=== PATIENT | female | born 1940 | race Caucasian/White ===

== ENCOUNTER → 2016-10-16 | Outpatient (CLI) | payer BC ==
[~2016-10-16] MED LIST: ADV250INH INH; ALBU17IN INH; ALLO100T PO; ALPR0.25 PO; AMIT50TA PO; CARI350T20 PO; CELE-19 PO; COLA100C3 PO; FURO1TAB15 PO; KLOR20PO12 PO; LISI-538 PO; MULT1TAB10 PO; NEXI40CA PO; PARO20TA3 PO; PRAV40TA2 PO; TRAM50TA2 PO
--- NOTE | 2016-10-16 11:44 | REP ---
RIGHT WRIST: Four views of the right wrist are performed. There is no acute fracture or dislocation. There is some degree of sclerosis of the lunate bone suggesting osteonecrosis. There is narrowing between the scaphoid and the trapezium as well as between the trapezium and base of first metacarpal with mild marginal spurring. 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 Mild degenerative changes lateral carpometacarpal region. Signed by Ethan Lombardo MD 10/16/2016 04:51 P
== END ==
LOC: M ADAMS 10:25
PROVIDERS: ATTEND Physician Assistant
DX: M25.531 Pain in right wrist (principal)

== ENCOUNTER → 2016-12-16 | Outpatient (REF) | payer BC ==
[2016-12-16 13:20] LABS: BASO % 0.5 % (0.0-1.0); EOS # 0.2 K/mm3 (0.0-0.50); EOS % 3.9 % (0.0-3.0); LARGE UNSTAINED CELL # 0.1 K/mm3 (0.0-0.4); LARGE UNSTAINED CELL % 1.3 % (0.0-4.0); LYMPH # 0.8 K/mm3 (1.5-4.5); LYMPH % 15.2 % (24.0-44.0); MEAN CORPUSCULAR HEMOGLOBIN 31.4 pg (27.0-33.0); MEAN CORPUSCULAR HGB CONC 32.8 g/dl (32.0-36.5); MEAN CORPUSCULAR VOLUME 95.7 fl (80.0-96.0); MONO # 0.3 K/mm3 (0.0-0.8); MONO % 6.6 % (0.0-5.0); NEUTROPHILS # 3.5 K/mm3 (1.8-7.7); NEUTROPHILS % 72.5 % (36.0-66.0); PLATELET COUNT, AUTOMATED 200 k/mm3 (150-450); RED CELL DISTRIBUTION WIDTH 14.1 % (11.5-14.5); WHITE BLOOD COUNT 4.8 K/mm3 (4.0-10.0)
[2016-12-16 13:53] LABS: ALBUMIN 3.7 GM/DL (3.2-5.2); ALBUMIN/GLOBULIN RATIO 1.12 (1.00-1.93); BILIRUBIN,TOTAL 0.4 MG/DL (0.2-1.0); CALCIUM LEVEL 9.5 MG/DL (8.8-10.2); CREATININE FOR GFR 1.11 MG/DL (0.55-1.02); GLOMERULAR FILTRATION RATE 50.6 (>39); POTASSIUM SERUM 4.9 MEQ/L (3.5-5.1)
== END ==
LOC: M LAB REF 12:30
PROVIDERS: ATTEND Nurse Practitioner Family
DX: K21.9 Gastro-esophageal reflux disease without esophagitis (principal); E55.9 Vitamin D deficiency, unspecified; E78.5 Hyperlipidemia, unspecified; I10 Essential (primary) hypertension

== ENCOUNTER → 2017-02-02 | Outpatient (REF) | payer BC ==
[~2017-02-02] MED LIST changes: +CARI350T PO; -CARI350T20 PO; -CELE-19 PO; +CELE1CAP4 PO; -COLA100C3 PO; +COLA100C5 PO; -FURO1TAB15 PO; +FURO80TA2 PO
[2017-02-02 20:32] LABS: CALCIUM LEVEL 9.4 MG/DL (8.8-10.2); CREATININE FOR GFR 1.17 MG/DL (0.55-1.02); GLOMERULAR FILTRATION RATE 47.6 (>39); POTASSIUM SERUM 4.8 MEQ/L (3.5-5.1)
== END ==
LOC: M LABDRWAD 20:15 → M LAB REF 20:15
PROVIDERS: ATTEND Nurse Practitioner Family
DX: I10 Essential (primary) hypertension (principal)

== ENCOUNTER → 2017-04-01 | Outpatient (REF) | payer BC ==
[2017-04-01 20:45] LABS: CALCIUM LEVEL 9.3 MG/DL (8.8-10.2); CREATININE FOR GFR 1.14 MG/DL (0.55-1.02); GLOMERULAR FILTRATION RATE 49.1 (>39); POTASSIUM SERUM 4.5 MEQ/L (3.5-5.1)
== END ==
LOC: M LABDRWAD 20:08
PROVIDERS: ATTEND Physician Assistant
DX: G56.01 Carpal tunnel syndrome, right upper limb (principal)

== ENCOUNTER → 2017-06-12 | Outpatient (REF) | payer BC ==
[2017-06-12 13:42] LABS: CALCIUM LEVEL 9.3 MG/DL (8.8-10.2); GLOMERULAR FILTRATION RATE 57.1 (>39); POTASSIUM SERUM 3.9 MEQ/L (3.5-5.1)
== END ==
LOC: M LABDRAW1 08:06
PROVIDERS: ATTEND Physician Assistant Surgical
DX: G56.02 Carpal tunnel syndrome, left upper limb (principal); Z01.810 Encounter for preprocedural cardiovascular examination

== ENCOUNTER → 2017-06-12 | Outpatient (REF) | payer BC ==
[2017-06-12 13:06] LABS: BASO % 0.5 % (0.0-1.0); EOS # 0.1 10^3/uL (0.0-0.50); EOS % 3.3 % (0.0-3.0); IMMATURE GRANULOCYTE % 0.3 % (0-0); LYMPH # 0.8 10^3/uL (1.5-4.5); LYMPH % 20.5 % (24.0-44.0); MEAN CORPUSCULAR HGB CONC 32.1 g/dl (32.0-36.5); MEAN CORPUSCULAR VOLUME 96.6 fl (80.0-96.0); MONO # 0.4 10^3/uL (0.0-0.8); MONO % 9.2 % (0.0-5.0); NEUTROPHILS # 2.6 10^3/uL (1.8-7.7); NEUTROPHILS % 66.2 % (36.0-66.0); PLATELET COUNT, AUTOMATED 223 10^3/uL (150-450); RED CELL DISTRIBUTION WIDTH 14.6 % (11.5-14.5); WHITE BLOOD COUNT 3.9 10^3/uL (4.0-10.0)
[2017-06-12 13:44] LABS: ALBUMIN 3.7 GM/DL (3.2-5.2); ALBUMIN/GLOBULIN RATIO 1.09 (1.00-1.93); BILIRUBIN,TOTAL 0.4 MG/DL (0.2-1.0); CREATININE FOR GFR 0.98 MG/DL (0.55-1.02); GLOMERULAR FILTRATION RATE 58.4 (>39); POTASSIUM SERUM 3.9 MEQ/L (3.5-5.1); TOTAL PROTEIN 7.1 GM/DL (6.4-8.2)
== END ==
LOC: M LABDRAW1 08:05
PROVIDERS: ATTEND Nurse Practitioner Family
DX: K21.9 Gastro-esophageal reflux disease without esophagitis (principal); E78.4 Other hyperlipidemia; I10 Essential (primary) hypertension

== ENCOUNTER → 2017-07-28 | Outpatient (CLI) | payer BC | LOC: M PAIN 11:15 | DX: M53.3 Sacrococcygeal disorders, not elsewhere classified (principal); M48.061 Spinal stenosis, lumbar region without neurogenic claudication; Z79.891 Long term (current) use of opiate analgesic; Z79.899 Other long term (current) drug therapy; Z88.8 Allergy status to other drugs, medicaments and biological substances | CPT/HCPCS: G0463 ==

== ENCOUNTER → 2017-08-05 | Outpatient (REF) | payer BC | LOC: M LAB REF 10:05 | DX: R53.83 Other fatigue (principal) ==

== ENCOUNTER → 2017-08-11 | Outpatient (CLI) | payer BC ==
[~2017-08-11] MED LIST changes: -ADV250INH INH; -ALBU17IN INH; -ALLO100T PO; -ALPR0.25 PO; -AMIT50TA PO; +BUPIVACAINE HCL 0.25% 30 ML VIAL As Ordered; -CARI350T PO; -CELE1CAP4 PO; -COLA100C5 PO; -FURO80TA2 PO; +ISOVUE-M 300 61% 15ML VIAL (Q9967) As Ordered; -KLOR20PO12 PO; +LIDOCAINE 1% SDV INJ 30 ML VIAL As Ordered; -LISI-538 PO; -MULT1TAB10 PO; -NEXI40CA PO; -PARO20TA3 PO; -PRAV40TA2 PO; -TRAM50TA2 PO; +TRIAMCINOLONE ACETONIDE SUSP 40 MG/ML VIAL (J3301) As Ordered; +diazePAM 5 MG TAB As Ordered
== END ==
LOC: M PAIN 08:45
DX: G89.29 Other chronic pain (principal); M46.1 Sacroiliitis, not elsewhere classified; Z88.5 Allergy status to narcotic agent; Z79.899 Other long term (current) drug therapy
CPT/HCPCS: J3301

== ENCOUNTER → 2017-09-01 | Outpatient (CLI) | payer BC | LOC: M PAIN 08:30 | DX: G89.29 Other chronic pain (principal); M53.3 Sacrococcygeal disorders, not elsewhere classified; M48.061 Spinal stenosis, lumbar region without neurogenic claudication; Z88.5 Allergy status to narcotic agent; Z79.891 Long term (current) use of opiate analgesic; Z79.899 Other long term (current) drug therapy | CPT/HCPCS: G0463 ==

== ENCOUNTER → 2017-09-10 | Outpatient (CLI) | payer BC | END | disposition home or self-care (01) | LOC: M PAIN 14:15 | DX: G89.29 Other chronic pain (principal); M53.3 Sacrococcygeal disorders, not elsewhere classified; Z79.899 Other long term (current) drug therapy; Z79.51 Long term (current) use of inhaled steroids; Z88.2 Allergy status to sulfonamides; Z88.5 Allergy status to narcotic agent | CPT/HCPCS: J3301 ==

== ENCOUNTER → 2017-10-12 | Outpatient (CLI) | payer BC ==
[~2017-10-12] MED LIST changes: +oxyCODONE 5MG TAB As Ordered
== END ==
LOC: M PAIN 08:30
DX: G89.29 Other chronic pain (principal); M47.816 Spondylosis without myelopathy or radiculopathy, lumbar region; M47.817 Spondylosis without myelopathy or radiculopathy, lumbosacral region; I10 Essential (primary) hypertension; E78.00 Pure hypercholesterolemia, unspecified; Z79.899 Other long term (current) drug therapy; Z88.5 Allergy status to narcotic agent; Z87.39 Personal history of other diseases of the musculoskeletal system and connective tissue
CPT/HCPCS: J3301

== ENCOUNTER → 2017-11-03 | Outpatient (CLI) | payer BC | LOC: M PAIN 15:00 | DX: M53.3 Sacrococcygeal disorders, not elsewhere classified (principal); M43.16 Spondylolisthesis, lumbar region; M48.061 Spinal stenosis, lumbar region without neurogenic claudication; G89.29 Other chronic pain; D86.9 Sarcoidosis, unspecified; I10 Essential (primary) hypertension; E78.00 Pure hypercholesterolemia, unspecified; Z79.899 Other long term (current) drug therapy; Z88.5 Allergy status to narcotic agent; Z87.39 Personal history of other diseases of the musculoskeletal system and connective tissue; Z96.652 Presence of left artificial knee joint | CPT/HCPCS: G0463 ==

== ENCOUNTER → 2017-11-12 | Outpatient (CLI) | payer BC ==
[~2017-11-12] MED LIST changes: -TRIAMCINOLONE ACETONIDE SUSP 40 MG/ML VIAL (J3301) As Ordered; -diazePAM 5 MG TAB As Ordered; -oxyCODONE 5MG TAB As Ordered
== END ==
LOC: M PAIN 10:45
DX: M47.816 Spondylosis without myelopathy or radiculopathy, lumbar region (principal); M47.817 Spondylosis without myelopathy or radiculopathy, lumbosacral region; I10 Essential (primary) hypertension; M10.9 Gout, unspecified; E78.00 Pure hypercholesterolemia, unspecified; Z96.652 Presence of left artificial knee joint; Z90.49 Acquired absence of other specified parts of digestive tract; Z79.891 Long term (current) use of opiate analgesic; Z79.899 Other long term (current) drug therapy; Z88.6 Allergy status to analgesic agent
CPT/HCPCS: Q9967

== ENCOUNTER → 2017-11-17 | Outpatient (CLI) | payer BC | LOC: M PAIN 15:45 | DX: M47.816 Spondylosis without myelopathy or radiculopathy, lumbar region (principal); M47.817 Spondylosis without myelopathy or radiculopathy, lumbosacral region; G89.29 Other chronic pain; I10 Essential (primary) hypertension; E78.00 Pure hypercholesterolemia, unspecified; D86.9 Sarcoidosis, unspecified; Z79.899 Other long term (current) drug therapy; Z88.5 Allergy status to narcotic agent; Z87.39 Personal history of other diseases of the musculoskeletal system and connective tissue; Z96.652 Presence of left artificial knee joint | CPT/HCPCS: G0463 ==

== ENCOUNTER → 2017-12-01 | Outpatient (CLI) | payer BC | LOC: M PAIN 10:30 | DX: G89.29 Other chronic pain (principal); M47.816 Spondylosis without myelopathy or radiculopathy, lumbar region; M47.817 Spondylosis without myelopathy or radiculopathy, lumbosacral region; I10 Essential (primary) hypertension; E78.00 Pure hypercholesterolemia, unspecified; D86.9 Sarcoidosis, unspecified; Z79.891 Long term (current) use of opiate analgesic; Z79.899 Other long term (current) drug therapy; Z88.5 Allergy status to narcotic agent; Z87.39 Personal history of other diseases of the musculoskeletal system and connective tissue; Z96.652 Presence of left artificial knee joint | CPT/HCPCS: Q9967 ==

== ENCOUNTER → 2017-12-03 | Outpatient (CLI) | payer BC | LOC: M PAIN 09:15 | DX: M46.96 Unspecified inflammatory spondylopathy, lumbar region (principal); M46.97 Unspecified inflammatory spondylopathy, lumbosacral region; G89.29 Other chronic pain; I10 Essential (primary) hypertension; E78.00 Pure hypercholesterolemia, unspecified; Z79.899 Other long term (current) drug therapy; Z88.5 Allergy status to narcotic agent; Z87.39 Personal history of other diseases of the musculoskeletal system and connective tissue; Z96.652 Presence of left artificial knee joint | CPT/HCPCS: G0463 ==

== ENCOUNTER → 2017-12-15 | Outpatient (REF) | payer BC ==
[2017-12-15 13:42] LABS: BASO % 0.4 % (0.0-1.0); EOS # 0.1 10^3/uL (0.0-0.50); EOS % 2.5 % (0.0-3.0); HEMOGLOBIN 11.8 g/dl (12.0-15.5); IMMATURE GRANULOCYTE % 0.7 % (0-3.0); LYMPH % 18.4 % (24.0-44.0); MEAN CORPUSCULAR HEMOGLOBIN 31.9 pg (27.0-33.0); MEAN CORPUSCULAR HGB CONC 31.9 g/dl (32.0-36.5); MONO # 0.4 10^3/uL (0.0-0.8); MONO % 7.9 % (0.0-5.0); NEUTROPHILS # 3.9 10^3/uL (1.8-7.7); NEUTROPHILS % 70.1 % (36.0-66.0); PLATELET COUNT, AUTOMATED 195 10^3/uL (150-450); RED CELL DISTRIBUTION WIDTH 14.1 % (11.5-14.5); WHITE BLOOD COUNT 5.5 10^3/uL (4.0-10.0)
[2017-12-15 13:56] LABS: TOTAL 25(OH) VITAMIN D 20.4 NG/ML (30.0-100.0)
[2017-12-15 14:05] LABS: ALBUMIN 3.9 GM/DL (3.2-5.2); ALBUMIN/GLOBULIN RATIO 1.22 (1.00-1.93); ALKALINE PHOSPHATASE 99 U/L (45-117); ALT/SGPT 19 U/L (12-78); ANION GAP 5 MEQ/L (8-16); AST/SGOT 11 U/L (7-37); BILIRUBIN,TOTAL 0.3 MG/DL (0.2-1.0); BLOOD UREA NITROGEN 38 MG/DL (7-18); CARBON DIOXIDE LEVEL 32 MEQ/L (21-32); CHLORIDE LEVEL 104 MEQ/L (98-107); CHOLESTEROL LEVEL 210 MG/DL (<200); CREATININE FOR GFR 1.33 MG/DL (0.55-1.30); GLUCOSE, FASTING 91 MG/DL (70-100); HDL CHOLESTEROL 70 MG/DL (>40); LDL CHOLESTEROL 112.4 MG/DL (<100); NON-HDL-C 140 MG/DL; POTASSIUM SERUM 4.8 MEQ/L (3.5-5.1); SODIUM LEVEL 141 MEQ/L (136-145); TOTAL PROTEIN 7.1 GM/DL (6.4-8.2); TRIGLYCERIDES LEVEL 138 MG/DL (<150)
== END ==
LOC: M SFHCADAM 08:54
DX: K21.9 Gastro-esophageal reflux disease without esophagitis (principal); E55.9 Vitamin D deficiency, unspecified; E78.4 Other hyperlipidemia; I10 Essential (primary) hypertension
CPT/HCPCS: 80053

== ENCOUNTER → 2017-12-15 | Outpatient (CLI) | payer BC ==
[~2017-12-15] MED LIST changes: -ISOVUE-M 300 61% 15ML VIAL (Q9967) As Ordered; +TRIAMCINOLONE ACETONIDE SUSP 40 MG/ML VIAL (J3301) As Ordered
== END ==
LOC: M PAIN 10:00
DX: G89.29 Other chronic pain (principal); M47.816 Spondylosis without myelopathy or radiculopathy, lumbar region; M47.817 Spondylosis without myelopathy or radiculopathy, lumbosacral region; I10 Essential (primary) hypertension; M10.9 Gout, unspecified; E78.00 Pure hypercholesterolemia, unspecified; D86.9 Sarcoidosis, unspecified; Z79.891 Long term (current) use of opiate analgesic; Z79.899 Other long term (current) drug therapy; Z88.5 Allergy status to narcotic agent
CPT/HCPCS: J3301

== ENCOUNTER → 2017-12-31 | Outpatient (CLI) | payer BC | LOC: M PAIN 13:00 | DX: M79.1 Myalgia (principal); M53.3 Sacrococcygeal disorders, not elsewhere classified; M48.061 Spinal stenosis, lumbar region without neurogenic claudication; D86.9 Sarcoidosis, unspecified; I10 Essential (primary) hypertension; E78.00 Pure hypercholesterolemia, unspecified; Z79.891 Long term (current) use of opiate analgesic; Z79.899 Other long term (current) drug therapy; Z88.5 Allergy status to narcotic agent; Z87.39 Personal history of other diseases of the musculoskeletal system and connective tissue | CPT/HCPCS: G0463 ==

== ENCOUNTER → 2018-01-01 | Outpatient (CLI) | payer BC ==
[~2018-01-01] MED LIST changes: +BUPIVACAINE HCL 0.25% 10 ML VIAL As Ordered; -LIDOCAINE 1% SDV INJ 30 ML VIAL As Ordered; +diazePAM 5 MG TAB As Ordered
== END ==
LOC: M PAIN 08:30
DX: G89.29 Other chronic pain (principal); M79.1 Myalgia; M54.5 Low back pain; D86.9 Sarcoidosis, unspecified; I10 Essential (primary) hypertension; E78.00 Pure hypercholesterolemia, unspecified; Z79.899 Other long term (current) drug therapy; Z88.5 Allergy status to narcotic agent; Z87.39 Personal history of other diseases of the musculoskeletal system and connective tissue; Z96.652 Presence of left artificial knee joint
CPT/HCPCS: J3301

== ENCOUNTER → 2018-01-27 | Outpatient (CLI) | payer BC | LOC: M PAIN 08:45 | DX: G89.29 Other chronic pain (principal); M79.1 Myalgia; M54.5 Low back pain; M53.3 Sacrococcygeal disorders, not elsewhere classified; M48.061 Spinal stenosis, lumbar region without neurogenic claudication; I10 Essential (primary) hypertension; E78.00 Pure hypercholesterolemia, unspecified; Z88.5 Allergy status to narcotic agent; Z79.01 Long term (current) use of anticoagulants; Z79.899 Other long term (current) drug therapy; Z87.39 Personal history of other diseases of the musculoskeletal system and connective tissue; Z96.652 Presence of left artificial knee joint | CPT/HCPCS: G0463 ==

== ENCOUNTER → 2018-02-02 | Outpatient (CLI) | payer BC | LOC: M PAIN 08:30 | DX: G89.29 Other chronic pain (principal); M79.1 Myalgia; M54.5 Low back pain; I10 Essential (primary) hypertension; E78.00 Pure hypercholesterolemia, unspecified; D86.9 Sarcoidosis, unspecified; Z79.01 Long term (current) use of anticoagulants; Z79.899 Other long term (current) drug therapy; Z88.5 Allergy status to narcotic agent; Z96.652 Presence of left artificial knee joint; Z87.39 Personal history of other diseases of the musculoskeletal system and connective tissue | CPT/HCPCS: J3301 ==

== ENCOUNTER 2018-02-08 14:33 | Emergency (ER) | payer BC ==
[2018-02-08 16:15] LABS: BASO % 0.2 % (0.0-1.0); EOS # 0.1 10^3/uL (0.0-0.50); EOS % 1.3 % (0.0-3.0); HEMATOCRIT 38.5 % (36.0-47.0); HEMOGLOBIN 12.5 g/dl (12.0-15.5); IMMATURE GRANULOCYTE % 0.6 % (0-3.0); LYMPH # 0.8 10^3/uL (1.5-4.5); LYMPH % 12.6 % (24.0-44.0); MEAN CORPUSCULAR HEMOGLOBIN 31.7 pg (27.0-33.0); MEAN CORPUSCULAR HGB CONC 32.5 g/dl (32.0-36.5); MEAN CORPUSCULAR VOLUME 97.7 fl (80.0-96.0); MONO # 0.4 10^3/uL (0.0-0.8); MONO % 6.3 % (0.0-5.0); NEUTROPHILS # 4.9 10^3/uL (1.8-7.7); PLATELET COUNT, AUTOMATED 198 10^3/uL (150-450); RED BLOOD COUNT 3.94 10^6/uL (4.00-5.40); RED CELL DISTRIBUTION WIDTH 13.7 % (11.5-14.5); WHITE BLOOD COUNT 6.2 10^3/uL (4.0-10.0)
[2018-02-08 16:19] LABS: INR 0.95; PROTHROMBIN TIME 12.8 SECONDS (12.1-14.4)
[2018-02-08 16:20] LABS: PARTIAL THROMBOPLASTIN TIME 32.9 SECONDS (25.4-37.6)
[2018-02-08 16:32] LABS: ALBUMIN 3.6 GM/DL (3.2-5.2); ALBUMIN/GLOBULIN RATIO 1.09 (1.00-1.93); ALKALINE PHOSPHATASE 80 U/L (45-117); ALT/SGPT 26 U/L (12-78); ANION GAP 9 MEQ/L (8-16); AST/SGOT 13 U/L (7-37); BILIRUBIN,DIRECT < 0.1 MG/DL (0.0-0.2); BILIRUBIN,TOTAL 0.3 MG/DL (0.2-1.0); BLOOD UREA NITROGEN 34 MG/DL (7-18); CALCIUM LEVEL 8.6 MG/DL (8.8-10.2); CARBON DIOXIDE LEVEL 31 MEQ/L (21-32); CHLORIDE LEVEL 106 MEQ/L (98-107); CREATININE FOR GFR 1.33 MG/DL (0.55-1.30); GLUCOSE, FASTING 101 MG/DL (70-100); POTASSIUM SERUM 3.9 MEQ/L (3.5-5.1); SODIUM LEVEL 146 MEQ/L (136-145); TOTAL PROTEIN 6.9 GM/DL (6.4-8.2)
[2018-02-08 19:08] LABS: C REACTIVE PROTEIN QUANTITATIV < 0.30 MG/DL (0.00-0.30)
[2018-02-08] MEDS: GASTROGRAFIN SOLUTION 30ML PO ×2 (19:22→19:55)
[2018-02-08] MEDS ORDERED: ISOVUE-370 76% 100ML VIAL (Q9967) As Ordered (20:43)
[2018-02-08 22:00] LABS: ERYTHROCYTE SEDIMENTATION RATE 22 mm/hr (0-30)
[2018-02-08] MEDS: RIVAROXABAN 20 MG TAB (XARELTO) PO (23:03)
[2018-02-09 09:13] LABS: CARCINOEMBRYONIC ANTIGEN 3.4 NG/ML (<2.5)
[2018-02-09 09:41] LABS: CA 125 15.3 U/ML (<30.2)
[2018-02-09 11:08] LABS: DRVV SCREEN 42.9 SEC
[2018-02-15 14:12] LABS: PHOSPHOLIPIDS LEVEL 291 mg/dL (150-250)
[2018-02-15 14:12] LABS: ANTI THROMBIN 3 ANTIGEN IMMUNO 134 % (72-124); ANTI THROMBIN 3 FUNCT ACTIVITY 126 % (75-135); CARDIOLIPIN IGA ANTIBODY <9 APL U/mL (0-11); CARDIOLIPIN IGG ANTIBODY <9 GPL U/mL (0-14); CARDIOLIPIN IGM ANTIBODY 11 MPL U/mL (0-12); PROTEIN C FUNCTIONAL ACTIVITY 152 % (73-180); PROTEIN S FUNCTIONAL ACTIVITY 79 % (63-140)
== END 2018-02-08 23:15 | disposition home or self-care (01) ==
LOC: M ED 14:33
DX: M79.89 Other specified soft tissue disorders (principal); M79.605 Pain in left leg; I10 Essential (primary) hypertension; E78.5 Hyperlipidemia, unspecified; M10.9 Gout, unspecified; J98.4 Other disorders of lung; Z88.5 Allergy status to narcotic agent; Z79.899 Other long term (current) drug therapy; Z79.51 Long term (current) use of inhaled steroids
CPT/HCPCS: Q9963

== ENCOUNTER → 2018-03-11 | Outpatient (CLI) | payer BC | LOC: M PAIN 08:30 | DX: M79.1 Myalgia (principal); M53.3 Sacrococcygeal disorders, not elsewhere classified; M48.061 Spinal stenosis, lumbar region without neurogenic claudication; I10 Essential (primary) hypertension; E78.00 Pure hypercholesterolemia, unspecified; Z79.01 Long term (current) use of anticoagulants; Z79.899 Other long term (current) drug therapy; Z88.5 Allergy status to narcotic agent; Z96.652 Presence of left artificial knee joint; Z87.39 Personal history of other diseases of the musculoskeletal system and connective tissue; Z86.718 Personal history of other venous thrombosis and embolism | CPT/HCPCS: G0463 ==

== ENCOUNTER → 2018-03-26 | Outpatient (CLI) | payer BC | LOC: M RAD 06:33 | DX: M79.1 Myalgia (principal); R93.7 Abnormal findings on diagnostic imaging of other parts of musculoskeletal system | CPT/HCPCS: 72148 ==

== ENCOUNTER → 2018-03-29 | Outpatient (CLI) | payer BC ==
[~2018-03-29] MED LIST changes: -BUPIVACAINE HCL 0.25% 10 ML VIAL As Ordered; +ISOVUE-M 300 61% 15ML VIAL (Q9967) As Ordered; +LIDOCAINE 1% SDV INJ 30 ML VIAL As Ordered; +oxyCODONE 5MG TAB As Ordered
== END ==
LOC: M PAIN 08:30
DX: G89.29 Other chronic pain (principal); M46.1 Sacroiliitis, not elsewhere classified; M53.88 Other specified dorsopathies, sacral and sacrococcygeal region; I10 Essential (primary) hypertension; E78.00 Pure hypercholesterolemia, unspecified; M87.9 Osteonecrosis, unspecified; Z68.41 Body mass index [BMI] 40.0-44.9, adult; Z79.01 Long term (current) use of anticoagulants; Z79.899 Other long term (current) drug therapy; Z88.5 Allergy status to narcotic agent; Z96.652 Presence of left artificial knee joint; Z87.39 Personal history of other diseases of the musculoskeletal system and connective tissue; Z86.79 Personal history of other diseases of the circulatory system
CPT/HCPCS: J3301

== ENCOUNTER → 2018-04-14 | Outpatient (CLI) | payer BC | LOC: M PAIN 08:30 | DX: M79.10 Myalgia, unspecified site (principal); M53.3 Sacrococcygeal disorders, not elsewhere classified; M48.061 Spinal stenosis, lumbar region without neurogenic claudication; D86.9 Sarcoidosis, unspecified; I10 Essential (primary) hypertension; E78.00 Pure hypercholesterolemia, unspecified; E66.01 Morbid (severe) obesity due to excess calories; Z68.41 Body mass index [BMI] 40.0-44.9, adult; Z79.01 Long term (current) use of anticoagulants; Z79.899 Other long term (current) drug therapy; Z88.5 Allergy status to narcotic agent; Z96.652 Presence of left artificial knee joint; Z87.39 Personal history of other diseases of the musculoskeletal system and connective tissue; Z86.718 Personal history of other venous thrombosis and embolism | CPT/HCPCS: G0463 ==

== ENCOUNTER → 2018-05-04 | Outpatient (CLI) | payer BC | LOC: M PAIN 08:45 | DX: G89.29 Other chronic pain (principal); M46.1 Sacroiliitis, not elsewhere classified; M53.88 Other specified dorsopathies, sacral and sacrococcygeal region; I10 Essential (primary) hypertension; E78.00 Pure hypercholesterolemia, unspecified; Z79.01 Long term (current) use of anticoagulants; Z79.899 Other long term (current) drug therapy; Z88.5 Allergy status to narcotic agent; Z86.79 Personal history of other diseases of the circulatory system; Z87.39 Personal history of other diseases of the musculoskeletal system and connective tissue | CPT/HCPCS: J3301 ==

== ENCOUNTER → 2018-05-05 | Outpatient (REF) | payer BC ==
[2018-05-05 20:06] LABS: BASO % 0.2 % (0.0-1.0); EOS % 0.2 % (0.0-3.0); HEMATOCRIT 40.6 % (36.0-47.0); HEMOGLOBIN 12.7 g/dl (12.0-15.5); IMMATURE GRANULOCYTE % 0.5 % (0-3.0); LYMPH # 0.9 10^3/uL (1.5-4.5); LYMPH % 14.3 % (24.0-44.0); MEAN CORPUSCULAR HEMOGLOBIN 31.2 pg (27.0-33.0); MEAN CORPUSCULAR HGB CONC 31.3 g/dl (32.0-36.5); MEAN CORPUSCULAR VOLUME 99.8 fl (80.0-96.0); MONO # 0.3 10^3/uL (0.0-0.8); MONO % 4.9 % (0.0-5.0); NEUTROPHILS # 4.9 10^3/uL (1.8-7.7); NEUTROPHILS % 79.9 % (36.0-66.0); PLATELET COUNT, AUTOMATED 218 10^3/uL (150-450); RED BLOOD COUNT 4.07 10^6/uL (4.00-5.40); WHITE BLOOD COUNT 6.1 10^3/uL (4.0-10.0)
[2018-05-05 20:24] LABS: ALBUMIN/GLOBULIN RATIO 1.29 (1.00-1.93); ALKALINE PHOSPHATASE 86 U/L (45-117); ALT/SGPT 20 U/L (12-78); ANION GAP 7 MEQ/L (8-16); AST/SGOT 12 U/L (7-37); BILIRUBIN,TOTAL 0.3 MG/DL (0.2-1.0); BLOOD UREA NITROGEN 28 MG/DL (7-18); CALCIUM LEVEL 9.6 MG/DL (8.8-10.2); CARBON DIOXIDE LEVEL 31 MEQ/L (21-32); CHLORIDE LEVEL 104 MEQ/L (98-107); CREATININE FOR GFR 1.03 MG/DL (0.55-1.30); FREE T4 0.86 NG/DL (0.76-1.46); GLUCOSE, FASTING 82 MG/DL (70-100); POTASSIUM SERUM 4.6 MEQ/L (3.5-5.1); SODIUM LEVEL 142 MEQ/L (136-145); TOTAL PROTEIN 7.1 GM/DL (6.4-8.2)
== END ==
LOC: M SFHCADAM 13:50
DX: R63.4 Abnormal weight loss (principal)
CPT/HCPCS: 84443

== ENCOUNTER → 2018-06-02 | Outpatient (CLI) | payer BC | LOC: M RAD 13:21 | DX: R97.0 Elevated carcinoembryonic antigen [CEA] (principal); E04.1 Nontoxic single thyroid nodule | CPT/HCPCS: 76536 ==

== ENCOUNTER → 2018-06-14 | Outpatient (CLI) | payer BC | LOC: M RAD 08:59 | DX: M71.22 Synovial cyst of popliteal space [Baker], left knee (principal); R60.0 Localized edema | CPT/HCPCS: 93971 ==

== ENCOUNTER → 2018-06-25 | Outpatient (CLI) | payer BC ==
[~2018-06-25] MED LIST changes: +ADV250INH INH; +ALBU17IN INH; +ALLO100T PO; +ALPR0.25 PO; +AMIT50TA PO; -BUPIVACAINE HCL 0.25% 30 ML VIAL As Ordered; +CARI1TAB7 PO; +CELE1CAP4 PO; +COLA100C5 PO; +FURO80TA2 PO; +ISOVUE-370 76% 100ML VIAL (Q9967) As Ordered ONE; -ISOVUE-M 300 61% 15ML VIAL (Q9967) As Ordered; +KLOR20PO12 PO; -LIDOCAINE 1% SDV INJ 30 ML VIAL As Ordered; +LISI-538 PO; +MULT1TAB10 PO; +NEXI40CA PO; +PARO20TA3 PO; +PRAV40TA2 PO; +TRAM50TA2 PO; -TRIAMCINOLONE ACETONIDE SUSP 40 MG/ML VIAL (J3301) As Ordered; -diazePAM 5 MG TAB As Ordered; -oxyCODONE 5MG TAB As Ordered
--- NOTE | 2018-06-25 21:06 | REP ---
REASON: Elevated carcinoembryonic antigen. COMPARISON CHEST CT: None. CONTRAST: 100 mL [id number]. There is marked mediastinal and hilar lymphadenopathy with mediastinal and bilateral hilar calcifications. There are no pleural or pericardial effusions. The imaged upper abdomen is unchanged from the abdominal CT of 02/08/2018. The imaged osseous structures are within normal limits for the patient's age. Evaluation of the lung green show significant elevation of the diaphragmatic surface of the right lung with the liver occupying approximately one half of the right hemithorax. There are no spiculated parenchymal masses. There are no significant nodules. IMPRESSION:1. Marked adenopathy as described above. 2. Marked elevation of the right hemidiaphragm as described above. Phrenic nerve paralysis can not be ruled out by this exam. Consider sniff test. 3. Other findings as described above. Electronically Signed by Serafin Mills DO 06/26/2018 11:01 A
== END ==
LOC: M RAD 16:13
PROVIDERS: ATTEND Family Medicine
DX: R97.0 Elevated carcinoembryonic antigen [CEA] (principal)
CPT/HCPCS: 71260; Q9967

== ENCOUNTER → 2018-10-26 | Outpatient (REF) | payer BC ==
[~2018-10-26] MED LIST changes: -ISOVUE-370 76% 100ML VIAL (Q9967) As Ordered ONE
[2018-10-26 12:38] LABS: BASO % 0.4 % (0.0-1.0); EOS # 0.1 10^3/uL (0.0-0.50); HEMOGLOBIN 12.4 g/dl (12.0-15.5); LYMPH # 1.1 10^3/uL (1.5-4.5); LYMPH % 20.6 % (24.0-44.0); MEAN CORPUSCULAR HEMOGLOBIN 29.3 pg (27.0-33.0); MEAN CORPUSCULAR VOLUME 94.6 fl (80.0-96.0); MONO # 0.5 10^3/uL (0.0-0.8); MONO % 9.3 % (0.0-5.0); NEUTROPHILS # 3.6 10^3/uL (1.8-7.7); NEUTROPHILS % 67.3 % (36.0-66.0); PLATELET COUNT, AUTOMATED 244 10^3/uL (150-450); RED BLOOD COUNT 4.23 10^6/uL (4.00-5.40); WHITE BLOOD COUNT 5.4 10^3/uL (4.0-10.0)
[2018-10-26 13:18] LABS: ALT/SGPT 15 U/L (12-78); BILIRUBIN,TOTAL 0.4 MG/DL (0.2-1.0); BLOOD UREA NITROGEN 20 MG/DL (7-18); CALCIUM LEVEL 9.3 MG/DL (8.8-10.2); CARBON DIOXIDE LEVEL 33 MEQ/L (21-32); CHLORIDE LEVEL 105 MEQ/L (98-107); CHOLESTEROL LEVEL 206 MG/DL (<200); CHOLESTEROL RISK RATIO 3.029 (<5); CREATININE FOR GFR 0.88 MG/DL (0.55-1.30); GLOMERULAR FILTRATION RATE > 60.0 (>39); GLUCOSE, FASTING 105 MG/DL (70-100); HDL CHOLESTEROL 68 MG/DL (>40); LDL CHOLESTEROL 110 MG/DL (<100); NON-HDL-C 138 MG/DL; POTASSIUM SERUM 4.1 MEQ/L (3.5-5.1); SODIUM LEVEL 142 MEQ/L (136-145); TOTAL PROTEIN 7.1 GM/DL (6.4-8.2); TRIGLYCERIDES LEVEL 139 MG/DL (<150)
== END ==
LOC: M SFHCADAM 08:19
PROVIDERS: ATTEND Family Medicine
DX: F32.9 Major depressive disorder, single episode, unspecified (principal); E66.9 Obesity, unspecified; E04.2 Nontoxic multinodular goiter

== ENCOUNTER → 2018-12-30 | Outpatient (REF) | payer BC | LOC: M LAB REF 12:21 | PROVIDERS: ATTEND Physician Assistant | DX: J02.9 Acute pharyngitis, unspecified (principal) ==

== ENCOUNTER → 2019-08-02 | Outpatient (REF) | payer BC ==
[2019-08-02 13:33] LABS: BASO % 0.3 % (0.0-1.0); EOS # 0.2 10^3/uL (0.0-0.5); EOS % 2.5 % (0.0-3.0); HEMOGLOBIN 12.3 g/dl (12.0-15.5); LYMPH # 1.4 10^3/uL (1.5-5.0); LYMPH % 23.3 % (24.0-44.0); MEAN CORPUSCULAR HEMOGLOBIN 29.6 pg (27.0-33.0); MEAN CORPUSCULAR HGB CONC 30.8 g/dl (32.0-36.5); MEAN CORPUSCULAR VOLUME 96.4 fl (80.0-96.0); MONO # 0.4 10^3/uL (0.0-0.8); MONO % 6.9 % (0.0-5.0); NEUTROPHILS # 3.9 10^3/uL (1.5-8.5); NEUTROPHILS % 66.2 % (36.0-66.0); PLATELET COUNT, AUTOMATED 229 10^3/uL (150-450); RED BLOOD COUNT 4.15 10^6/uL (4.00-5.40); WHITE BLOOD COUNT 5.9 10^3/uL (4.0-10.0)
[2019-08-02 13:47] LABS: ALBUMIN 3.8 GM/DL (3.2-5.2); BILIRUBIN,TOTAL 0.4 MG/DL (0.2-1.0); CALCIUM LEVEL 9.2 MG/DL (8.8-10.2); CHOLESTEROL RISK RATIO 2.924 (<5); CREATININE FOR GFR 1.11 MG/DL (0.55-1.30); GLOMERULAR FILTRATION RATE 50.3 (>32); THYROID STIMULATING HORMONE 2.62 uIU/ML (0.358-3.740); TOTAL PROTEIN 6.9 GM/DL (6.4-8.2)
== END ==
LOC: M SFHCADAM 08:06
PROVIDERS: ATTEND Family Medicine
DX: I10 Essential (primary) hypertension (principal)

== ENCOUNTER → 2019-08-18 | Outpatient (CLI) | payer BC ==
--- NOTE | 2019-08-18 18:15 | REP ---
Thyroid ultrasound for thyroid nodules: Right lobe: The right lobe measures 4.0 1.3 x 1.2 cm. The right lobe is normal size. There is a 3 mm solid nodule at the mid pole. The remainder of the right thyroid lobe is homogeneous and unremarkable. Left lobe: The left lobe measures 3.6 x 1.6 x 1.2 cm. The left lobe is normal size. There is a 8 mm heterogeneous nodule at the upper pole. There is a 4 mm cyst at the mid pole. There is a 3 mm solid nodule at the lower pole. There is a 3 ml cyst at the lower pole. Isthmus: The isthmus measures 2 mm thickness. The isthmus is normal size. The there are no nodules or cysts in the isthmus. Electronically Signed by Ethan Mata MD 08/18/2019 06:07 P
== END ==
LOC: M RAD 12:21
PROVIDERS: ATTEND Family Medicine
DX: E04.1 Nontoxic single thyroid nodule (principal)

== ENCOUNTER → 2019-08-30 | Outpatient (REF) | payer BC ==
[2019-08-30 17:11] LABS: HEMATOCRIT 37.6 % (36.0-47.0); HEMOGLOBIN 11.8 g/dl (12.0-15.5); MEAN CORPUSCULAR HEMOGLOBIN 29.9 pg (27.0-33.0); MEAN CORPUSCULAR HGB CONC 31.4 g/dl (32.0-36.5); MEAN CORPUSCULAR VOLUME 95.2 fl (80.0-96.0); PLATELET COUNT, AUTOMATED 227 10^3/uL (150-450); RED BLOOD COUNT 3.95 10^6/uL (4.00-5.40); WHITE BLOOD COUNT 4.8 10^3/uL (4.0-10.0)
[2019-08-30 17:15] LABS: ALBUMIN 3.8 GM/DL (3.2-5.2); ALT/SGPT 18 U/L (12-78); BILIRUBIN,TOTAL 0.4 MG/DL (0.2-1.0); BLOOD UREA NITROGEN 19 MG/DL (7-18); CARBON DIOXIDE LEVEL 32 MEQ/L (21-32); CHLORIDE LEVEL 107 MEQ/L (98-107); CREATININE FOR GFR 0.91 MG/DL (0.55-1.30); GLOMERULAR FILTRATION RATE > 60.0 (>32); GLUCOSE, FASTING 93 MG/DL (70-100); RHEUMATOID FACTOR QUANT < 10.0 IU/ML (<15.0); SODIUM LEVEL 143 MEQ/L (136-145)
[2019-08-30 19:07] LABS: ERYTHROCYTE SEDIMENTATION RATE 26 mm/hr (0-30)
[2019-09-02 00:06] LABS: ANA (HEP2) Negative (.); CYCLIC CITRULLINATED PEPTIDE 9 units (0-19)
== END ==
LOC: M SFHCADAM 13:47
PROVIDERS: ATTEND Family Medicine
DX: M19.90 Unspecified osteoarthritis, unspecified site (principal)

== ENCOUNTER → 2019-08-30 | Outpatient (CLI) | payer BC ==
--- NOTE | 2019-08-30 14:36 | REP ---
Clinical: Arthritis. Technique: AP, lateral, bilateral oblique views of the left hand. Findings: Advanced osteoarthritic degenerative changes noted. Distal interphalangeal joints demonstrate subchondral heterogeneity, joint space obliteration, marginal spurring and gull-wing deformities with mild overlying soft tissue swelling. Proximal interphalangeal joints demonstrate subchondral sclerosis with joint space narrowing. First digit demonstrates chronic subluxation and deformity at the metacarpophalangeal joint with subchondral heterogeneity and cystic changes as well as marginal spurring. No acute fracture or dislocation. Impression: Advanced osteoarthritic degenerative changes. Electronically Signed by Kayden Chavez MD 08/30/2019 02:27 P
--- NOTE | 2019-08-30 14:37 | REP ---
Clinical: Arthritis. Technique: AP, lateral, bilateral oblique views of the wrist. Findings: Osteopenia and moderate arthritic changes include subtle sclerosis to the carpal bones and radial surface with decreased radial carpal joint space. No obvious acute fracture dislocation. Impression: Moderate osteopenia and arthritic changes to the wrist. Electronically Signed by Kayden Chavez MD 08/30/2019 02:28 P
== END ==
LOC: M ADAMS 14:06
PROVIDERS: ATTEND Family Medicine
DX: M19.90 Unspecified osteoarthritis, unspecified site (principal)

== ENCOUNTER → 2019-11-16 | Outpatient (REF) | payer BC ==
[2019-11-16 18:26] LABS: HEMATOCRIT 36.9 % (36.0-47.0); HEMOGLOBIN 11.7 g/dl (12.0-15.5); MEAN CORPUSCULAR HEMOGLOBIN 30.1 pg (27.0-33.0); MEAN CORPUSCULAR HGB CONC 31.7 g/dl (32.0-36.5); MEAN CORPUSCULAR VOLUME 94.9 fl (80.0-96.0); PLATELET COUNT, AUTOMATED 220 10^3/uL (150-450); RED BLOOD COUNT 3.89 10^6/uL (4.00-5.40); WHITE BLOOD COUNT 7.1 10^3/uL (4.0-10.0)
[2019-11-16 18:28] LABS: BLOOD UREA NITROGEN 26 MG/DL (7-18); CALCIUM LEVEL 9.7 MG/DL (8.8-10.2); CARBON DIOXIDE LEVEL 31 MEQ/L (21-32); CHLORIDE LEVEL 103 MEQ/L (98-107); CREATININE FOR GFR 0.93 MG/DL (0.55-1.30); GLOMERULAR FILTRATION RATE > 60.0 (>32); GLUCOSE, FASTING 96 MG/DL (70-100); POTASSIUM SERUM 4.6 MEQ/L (3.5-5.1); SODIUM LEVEL 141 MEQ/L (136-145)
== END ==
LOC: M SFHCADAM 13:56
PROVIDERS: ATTEND Family Medicine
DX: I50.33 Acute on chronic diastolic (congestive) heart failure (principal)

== ENCOUNTER → 2019-11-16 | Outpatient (CLI) | payer BC ==
--- NOTE | 2019-11-17 03:03 | REP ---
Clinical: Chronic diastolic congestive heart failure . Comparison: 04/18/2019, 04/14/2018 . Technique: PA and lateral. Findings: Chronic elevation to the right hemidiaphragm is again noted. The bilateral thor are prominent and underlying adenopathy versus pulmonary vascular hypertension cannot be excluded. The cardiac silhouette is normal. The visualized aerated lung green are clear and without acute consolidation, effusion, or pneumothorax. The skeletal structures are intact and normal. Impression: 1. Chronic changes as described above. Electronically Signed by Kayden Chavez MD 11/17/2019 02:55 A
== END ==
LOC: M ADAMS 14:09
PROVIDERS: ATTEND Family Medicine
DX: I50.33 Acute on chronic diastolic (congestive) heart failure (principal)

== ENCOUNTER → 2019-11-22 | Outpatient (REF) | payer BC ==
[~2019-11-22] MED LIST changes: +ADVA230A INH; +CVS-161 PO; +CVS1CAP2 PO; +FURO40TA2 PO; -LISI-538 PO; +LISI20TA33 PO; +MIRT-62 PO; +OCUVTAB PO; +PARO30TA65 PO; +PRAV20TA2 PO; +SPIR-10 PO; +TRAM37.53 PO; +VENTAER INH; +VITA50005 PO
[2019-11-22 18:30] LABS: CALCIUM LEVEL 9.3 MG/DL (8.8-10.2); CREATININE FOR GFR 1.01 MG/DL (0.55-1.30); POTASSIUM SERUM 4.1 MEQ/L (3.5-5.1)
== END ==
LOC: M SFHCADAM 10:49
PROVIDERS: ATTEND Physician Assistant
DX: I50.33 Acute on chronic diastolic (congestive) heart failure (principal); I11.0 Hypertensive heart disease with heart failure

== ENCOUNTER → 2019-12-12 | Outpatient (REF) | payer BC ==
[~2019-12-12] MED LIST changes: -ADVA230A INH; -CVS-161 PO; -CVS1CAP2 PO; -FURO40TA2 PO; +LISI-538 PO; -LISI20TA33 PO; -MIRT-62 PO; -OCUVTAB PO; -PARO30TA65 PO; -PRAV20TA2 PO; -SPIR-10 PO; -TRAM37.53 PO; -VENTAER INH; -VITA50005 PO
== END ==
LOC: M LAB REF 18:02
PROVIDERS: ATTEND Physician Assistant
DX: J20.9 Acute bronchitis, unspecified (principal)
CPT/HCPCS: 87502; U0003

== ENCOUNTER → 2020-04-17 | Outpatient (REF) | payer MEDICARE, BC ==
[~2020-04-17] MED LIST changes: +ADVA230A INH; +CVS-161 PO; +CVS1CAP2 PO; +FURO40TA2 PO; +OCUVTAB PO; +PARO30TA65 PO; +PRAV20TA2 PO; +REME15TA PO; +SPIR-10 PO; +TRAM37.53 PO; +VENTAER INH; +VITA50005 PO
[2020-04-18 13:06] LABS: BASO % 0.5 % (0.0-1.0); EOS # 0.2 10^3/uL (0.0-0.5); EOS % 2.2 % (0.0-3.0); HEMATOCRIT 36.1 % (36.0-47.0); HEMOGLOBIN 11.4 g/dl (12.0-15.5); LYMPH # 1.4 10^3/uL (1.5-5.0); LYMPH % 19.4 % (24.0-44.0); MEAN CORPUSCULAR HGB CONC 31.6 g/dl (32.0-36.5); MONO # 0.4 10^3/uL (0.0-0.8); MONO % 5.6 % (0.0-5.0); NEUTROPHILS # 5.3 10^3/uL (1.5-8.5); NEUTROPHILS % 71.8 % (36.0-66.0); PLATELET COUNT, AUTOMATED 216 10^3/uL (150-450); WHITE BLOOD COUNT 7.4 10^3/uL (4.0-10.0)
[2020-04-18 13:29] LABS: ERYTHROCYTE SEDIMENTATION RATE 40 mm/hr (0-30)
[2020-04-18 14:13] LABS: ALBUMIN 3.9 GM/DL (3.2-5.2); BILIRUBIN,TOTAL 0.3 MG/DL (0.2-1.0); CALCIUM LEVEL 8.9 MG/DL (8.8-10.2); CREATININE FOR GFR 2.95 MG/DL (0.55-1.30); FREE T4 0.78 NG/DL (0.76-1.46); GLOMERULAR FILTRATION RATE 16.3 (>32); POTASSIUM SERUM 7.5 MEQ/L (3.5-5.1); THYROID STIMULATING HORMONE 3.41 uIU/ML (0.358-3.740); TOTAL PROTEIN 7.2 GM/DL (6.4-8.2)
== END ==
LOC: M SFHCADAM 15:50
PROVIDERS: ATTEND Physician Assistant
DX: F32.9 Major depressive disorder, single episode, unspecified (principal); E04.2 Nontoxic multinodular goiter; I50.33 Acute on chronic diastolic (congestive) heart failure; B97.89 Other viral agents as the cause of diseases classified elsewhere; M79.10 Myalgia, unspecified site; R91.8 Other nonspecific abnormal finding of lung field

== ENCOUNTER → 2020-04-17 | Outpatient (CLI) | payer MEDICARE, BC ==
--- NOTE | 2020-04-23 12:54 | REP ---
TWO-VIEW CHEST HISTORY: Sarcoidosis. TECHNIQUE: Two views of the chest are performed. COMPARISON: Made with prior study of 11/16/2019. FINDINGS: Once again, there is significant elevation of the right hemidiaphragm unchanged. There is mild bibasilar fibroatelectatic change, which is stable. Heart is not significantly enlarged. Prominent hilar shadows are stable. There is calcification and tortuosity of the thoracic aorta. The mediastinal silhouette is unchanged. There are pqcn-ex-meyupugp diffuse degenerative changes of the spine. IMPRESSION: Stable findings as above when compared to prior study 11/16/2019. [facility]
== END ==
LOC: M ADAMS 14:56
PROVIDERS: ATTEND Internal Medicine Pulmonary Disease
DX: R91.8 Other nonspecific abnormal finding of lung field (principal)

== ENCOUNTER 2020-04-18 15:41 | Inpatient (IN) | payer MEDICARE, BC ==
[~2020-04-18] VITALS: Ht 152.4 cm; Wt 93.5 kg
[~2020-04-18 15:41] MED LIST changes: -ADVA230A INH; -CVS-161 PO; -CVS1CAP2 PO; -FURO40TA2 PO; -OCUVTAB PO; -PARO30TA65 PO; -PRAV20TA2 PO; -REME15TA PO; -SPIR-10 PO; -TRAM37.53 PO; -VENTAER INH; -VITA50005 PO
--- NOTE | 2020-04-18 16:57 | REPVR ---
PROCEDURE INFORMATION: Exam: XR Chest, 2 Views Exam date and time: 04/18/2020 4:41 PM Age: 79 years old Clinical indication: Shortness of breath; Additional info: SOB TECHNIQUE: Imaging protocol: XR of the chest Views: 2 views. COMPARISON: DX CHEST 2 VIEW 04/17/2020 2:40 PM FINDINGS: Lungs: Bilateral thor are prominent and underlying adenopathy versus pulmonary vascular hypertension cannot be excluded. Visualized aerated lungs are clear. Pleural space: Unremarkable. No pleural effusion. No pneumothorax. Heart/Mediastinum: Stable cardiac silhouette. Diaphragm: Chronic elevation of the right hemidiaphragm. Bones/joints: Unremarkable. IMPRESSION: No acute abnormality. Electronically signed by: Emile Patterson On 04/18/2020 16:57:14 PM
[2020-04-18 17:09] LABS: BLOOD UREA NITROGEN 117 MG/DL (7-18); CARBON DIOXIDE LEVEL 24 MEQ/L (21-32); CHLORIDE LEVEL 106 MEQ/L (98-107); CREATININE FOR GFR 2.71 MG/DL (0.55-1.30); GLOMERULAR FILTRATION RATE 17.9 (>32); GLUCOSE, FASTING 95 MG/DL (70-100); POTASSIUM SERUM 5.1 MEQ/L (3.5-5.1); SODIUM LEVEL 137 MEQ/L (136-145)
[2020-04-18 17:10] LABS: ALBUMIN 3.9 GM/DL (3.2-5.2); ALT/SGPT 19 U/L (12-78); BILIRUBIN,DIRECT < 0.1 MG/DL (0.0-0.2); BILIRUBIN,TOTAL 0.3 MG/DL (0.2-1.0); CALCIUM LEVEL 9.2 MG/DL (8.8-10.2); CK-MB VALUE MASS 2.4 NG/ML (<3.6); CPK CREATINE PHOSPHOKINASE 74 U/L (26-192); FREE T4 0.78 NG/DL (0.76-1.46); LIPASE 88 U/L (73-393); MB/CK RELATIVE INDEX 3.24 (< OR =4); NT-PRO BNP 554 PG/ML (<450); TOTAL PROTEIN 7.6 GM/DL (6.4-8.2); TROPONIN I < 0.02 NG/ML (< 0.10)
[2020-04-18 17:12] LABS: BASO % 0.3 % (0.0-1.0); EOS # 0.1 10^3/uL (0.0-0.5); HEMATOCRIT 36.3 % (36.0-47.0); HEMOGLOBIN 11.3 g/dl (12.0-15.5); LYMPH # 1.3 10^3/uL (1.5-5.0); LYMPH % 18.5 % (24.0-44.0); MEAN CORPUSCULAR HGB CONC 31.1 g/dl (32.0-36.5); MEAN CORPUSCULAR VOLUME 93.3 fl (80.0-96.0); MONO # 0.4 10^3/uL (0.0-0.8); MONO % 5.7 % (0.0-5.0); NEUTROPHILS % 73.1 % (36.0-66.0); PLATELET COUNT, AUTOMATED 213 10^3/uL (150-450); RED BLOOD COUNT 3.89 10^6/uL (4.00-5.40); WHITE BLOOD COUNT 6.9 10^3/uL (4.0-10.0)
[2020-04-18] MEDS ORDERED: NS 1,000 ML IV SCH (17:14)
--- NOTE | 2020-04-18 18:36 | ECGEPIP ---
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
[2020-04-18] MEDS ORDERED: PARO30TA65 PO (18:44)
[2020-04-18] MEDS ORDERED: TRAM37.53 PO ×2 (18:44)
[2020-04-18] MEDS ORDERED: CVS1CAP2 PO (18:44)
[2020-04-18] MEDS ORDERED: VITA50005 PO (18:44)
[2020-04-18] MEDS ORDERED: OCUVTAB PO (18:44)
[2020-04-18] MEDS ORDERED: ADVA230A INH (18:44)
[2020-04-18] MEDS ORDERED: PRAV20TA2 PO (18:44)
[2020-04-18] MEDS ORDERED: CVS-161 PO (18:44)
[2020-04-18] MEDS ORDERED: REME15TA PO (18:44)
[2020-04-18] MEDS ORDERED: SPIR-10 PO (18:44)
[2020-04-18] MEDS ORDERED: ALPR0.25 PO (18:44)
[2020-04-18] MEDS ORDERED: VENTAER INH (18:45)
[2020-04-18] MEDS ORDERED: ALPRAZolam 0.25 MG TAB PO PRN (18:45)
[2020-04-18] MEDS: NS 1,000 ML IV SCH (19:15)
--- NOTE | 2020-04-18 19:23 | HPEPDOC ---
General Date of Admission Apr 18, 2020 Date of Service: Apr 18, 2020 Attending Physician: DOMINIC VALENZUELA DO Chief Complaint The patient is a 79-year-old female admitted with a reason for visit of Abnormal Labs. Source: Patient Exam Limitations: No limitations History of Present Illness Mrs. Liu is a 79 year old female with bilateral lower extremity edema, hypertension, and sarcoidosis here with malaise, diffuse pain, and poor oral intake found to have acute kidney injury. She has been working with physical therapy for ambulation and chronic back pain. This week, she started to have diffuse pain and malaise. She thought she had pushed herself too hard. In addition to the malaise, she developed anorexia. Then in the past 3 days, she developed dizziness/lightheadedness with sore throat and dry cough. She visit her primary who did routine labs. The initial potassium was 7.5, but this blood specimen was left out overnight. Repeat labs here demonstrate a potassium of 5.1. Otherwise, her labs demonstrate MIRZA with creatinine increase to 2.71 from a baseline of 1. At home, she has been taking furosemide 80mg BID. She tells me she was taking the furosemide for bilateral leg swelling and denies history of CHF. We spoke a bout holding her furosemide and adjusting her medications while she is here. Home Medications Scheduled Allopurinol (Allopurinol) 100 Mg Tab, 100 MG PO BID, (Reported) Alprazolam (Alprazolam) 0.25 Mg Tab, 0.25 MG PO DAILY, (Reported) Amitriptyline HCl (Amitriptyline HCl) 50 Mg Tab, 50 MG PO QHS, (Reported) Carisoprodol (Carisoprodol) 350 Mg Tab, 350 MG PO BID, (Reported) Celecoxib (Celebrex) 200 Mg Cap, 200 MG PO DAILY, (Reported) Docusate Sodium (Colace) 100 Mg Cap, 200 MG PO QHS, (Reported) Esomeprazole Magnesium (Nexium) 40 Mg Cap, 40 MG PO BID, (Reported) Furosemide (Furosemide) 80 Mg Tab, 80 MG PO BID, (Reported) Lisinopril (Lisinopril) 20 Mg Tab, 20 MG PO DAILY, (Reported) Multivitamins (Multivitamin Adults) 1 Tab Tab, 1 TAB PO DAILY, (Reported) Paroxetine HCl (Paroxetine HCl) 20 Mg Tab, 30 MG PO DAILY, (Reported) Potassium Chloride (Klor-Con) 20 Meq Pow, 20 MEQ PO DAILY, (Reported) Pravastatin Sodium (Pravastatin Sodium) 40 Mg Tab, 20 MG PO DAILY, (Reported) Salmeterol/Fluticasone (Advair 250-50 Diskus) 14 Puff/Inhaler Aerp, 2 PUFF INH BID, (Reported) Scheduled PRN Albuterol Sulfate (Ventolin Hfa) 200 Puff/8 Gm Aers, 2 PUFF INH PRN PRN for SHORTNESS OF BREATH, (Reported) Tramadol HCl (Tramadol HCl) 50 Mg Tab, 50 MG PO Q6HP PRN for PAIN, (Reported) Allergies Coded Allergies: codeine (Verified Allergy, Intermediate, " deathly sick" , 04/18/20) Past Medical History Medical History 1. HLD 2. HTN 3. Sarcoidosis 4. GERD 5. Osteoarthritis 6. Depression Surgical History 1. Tonsillectomy 2. Appendectomy 3. Cholecystectomy 4. Hysterectomy 5. Left knee replacement Social History * Smoker: Denies Alcohol: Denies Drugs: denies A-FIB/CHADSVASC A-FIB History Current/History of A-Fib/PAF?: No Review of Systems Constitutional: Denies: Chills, Fever Eyes: Denies: Vision change ENT: Reports: Sore Throat Skin: Denies: Rash Pulmonary: Reports: Cough (Dry); Denies: Dyspnea Cardiovascular: Denies: Chest Pain Gastrointestinal: Reports: Diarrhea; Denies: Abdominal Pain Genitourinary: Denies: Dysuria Endocrine: Denies: Polyphagia Musculoskeletal: Reports: Muscle Pain (Diffused muscle pain) Neurological: Denies: Numbness Psych: Reports: Anxiety Physical Examination General Exam: Positive: Alert, Cooperative, No Acute Distress Eye Exam: Positive: EOMI; Negative: Sclera icteric ENT Exam: Positive: Atraumatic Neck Exam: Positive: Supple Chest Exam: Positive: Clear to auscultation; Negative: Rales, Rhonchi, Wheezing Heart Exam: Positive: Rate Normal, Regular Rhythm Abdomen Exam: Positive: Normal bowel sounds, Soft; Negative: Tenderness Extremity Exam: Positive: Edema (Left worse than right) Neuro Exam: Positive: Cranial Nerves 3-12 NL Psych Exam: Positive: Anxiety Vital Signs Vital Signs Date Time Temp Pulse Resp B/P (MAP) Pulse Ox O2 Delivery O2 Flow Rate FiO2 04/18/20 18:29 69 04/18/20 18:15 135/65 (88) 04/18/20 18:08 99 04/18/20 16:08 Room Air 04/18/20 15:42 98.2 18 Laboratory Data Labs 24H Laboratory Tests 2 04/18/20 16:07: Immature Granulocyte % (Auto) 0.4, Neutrophils (%) (Auto) 73.1H, Lymphocytes (%) (Auto) 18.5L, Monocytes (%) (Auto) 5.7H, Eosinophils (%) (Auto) 2.0, Basophils (%) (Auto) 0.3, Neutrophils # (Auto) 5.0, Lymphocytes # (Auto) 1.3L, Monocytes # (Auto) 0.4, Eosinophils # (Auto) 0.1, Basophils # (Auto) 0.0, Nucleated Red Blood Cells % (auto) 0.0, Anion Gap 7L, Glomerular Filtration Rate 17.9L, Calcium Level 9.2, Total Bilirubin 0.3, Direct Bilirubin < 0.1, Aspartate Amino Transf (AST/SGOT) 10, Alanine Aminotransferase (ALT/SGPT) 19, Alkaline Phosphatase 99, Total Creatine Kinase 74, Creatine Kinase MB 2.4, Creatine Kinase MB Relative Index 3.24, Troponin I < 0.02, AF-Zeb-Q-Type Natriuretic Peptide 554H, Total Protein 7.6, Albumin 3.9, Albumin/Globulin Ratio 1.1L, Lipase 88, Thyroid Stimulating Hormone (TSH) 3.590, Free Thyroxine 0.78 04/18/20 17:25: Urine Color COLORLESS, Urine Appearance CLEAR, Urine pH 5.0, Urine Specific [place] 1.005, Urine Protein NEGATIVE, Urine Glucose (UA) NEGATIVE, Urine Ketones NEGATIVE, Urine Blood NEGATIVE, Urine Nitrite NEGATIVE, Urine Bilirubin NEGATIVE, Urine Urobilinogen 0.2, Urine Leukocyte Esterase NEGATIVE, Urine WBC (Auto) 0, Urine RBC (Auto) 1, Urine Hyaline Casts (Auto) 0, Urine Bacteria (Auto) NEGATIVE, Urine Squamous Epithelial Cells 0, Urine Sperm (Auto) CBC/BMP Laboratory Tests 04/18/20 16:07 Assessment/Plan Mrs. Liu is a 79 year old female with bilateral lower extremity edema, hypertension, and sarcoidosis here with malaise, diffuse pain, and poor oral intake found to have acute kidney injury. MIRZA is most likely secondary to poor oral intake while on diuretics. The diuretics will be held, and she will be given fluids. We will also work up the MIRZA with US kidneys, UA, and urine electr olytes. Otherwise, we will have physical therapy help her with ambulation Plan / VTE VTE Prophylaxis Ordered?: Yes Plan Plan 1. Acute kidney injury -Admission creatinine 2.71, baseline 1 -Secondary to poor oral intake in the setting of diuretic use -Hold nephrotoxic agents and renally adjust medications -Continue IVF -Pending UA, urine electrolytes, US kidney 2. Hyperkalemia -Outpatient K 7.5, but may be error due to old sample -Repeat 5.1 -Monitor BMP while inpatient -Continue IVF to support kidney function 3. Gout -Reduce allopurinol dose to 50mg until renal function improves 4. Chronic pain -Hold tramadol -Substitute with acetaminophen -Continue bed time muscle relaxant -Add on lidocaine patch 5. Insomnia -Continue bed time muscle relaxant and Ativan 6. Anxiety/Depression -Hold paroxetine until renal function improves 7. COPD -Stable, continue inhalers 8. GERD -Continue pantoprazole 9. Left leg swelling -May be secondary to knee surgery -Obtain US left leg to r/o DVT 10. DVT ppx -SCD and ARVINDs DOMINIC VALENZUELA DO Apr 18, 2020 19:23
[2020-04-18] MEDS ORDERED: PILL CUTTER 1 EACH XX PRN (19:45)
[2020-04-18] MEDS: ALBUTEROL 90 MCG/ACT 8GM HFA INHALER INH PRN (20:50)
[2020-04-18] MEDS: ADVAIR HFA 230/21MCG INHALER INH SCH (20:50)
[2020-04-18] MEDS: ONDANSETRON 4MG/2ML VIAL IV PRN (22:17)
[2020-04-18] MEDS: PANTOPRAZOLE 40MG TAB (PROTONIX) PO SCH (22:17)
[2020-04-18] MEDS: ACETAMINOPHEN 500 MG TAB PO PRN (22:18)
[2020-04-18 22:30] VITALS: BP 148/50
[2020-04-18] MEDS: **NOTE PATIENT COMMENT** MISC XX SCH (22:49)
[2020-04-18] MEDS: LIDOCAINE 5% (LIDODERM) PATCH TD SCH (22:49)
[2020-04-18] MEDS: MIRTAZAPINE 15 MG TAB PO SCH (22:55)
[2020-04-18] MEDS: carisoprodoL 350 MG TAB PO SCH (22:56)
[2020-04-18] MEDS: ALPRAZolam 0.25 MG TAB PO SCH (22:56)
[2020-04-19 00:05] LABS: APPEARANCE, URINE CLEAR (CLEAR); BACTERIA, URINE AUTO 1+ (NEGATIVE); BILIRUBIN, URINE AUTO NEGATIVE (NEGATIVE); BLOOD, URINE BLOOD NEGATIVE (NEGATIVE); COLOR, URINE STRAW (YELLOW); CREATININE,RANDOM URINE 26.1 MG/DL; GLUCOSE, URINE (UA) AUTO NEGATIVE (NEGATIVE); KETONE, URINE AUTO NEGATIVE (NEGATIVE); LEUKOCYTE ESTERASE, URINE AUTO NEGATIVE (NEGATIVE); NITRITE, URINE AUTO NEGATIVE (NEGATIVE); PROTEIN, URINE AUTO NEGATIVE (NEGATIVE); RBC, URINE AUTO 3 /HPF (0-3); SPECIFIC GRAVITY URINE AUTO 1.008 (1.002-1.035); SQUAMOUS EPITHELIAL CELL UR AU 0 /HPF (0-6); UROBILINOGEN, URINE AUTO 0.2 mg/dL (0.0-2.0); WBC, URINE AUTO 0 /HPF (0-3)
--- NOTE | 2020-04-19 02:29 | REPVR ---
PROCEDURE INFORMATION: Exam: US Duplex Left Lower Extremity Veins, Limited Exam date and time: 04/19/20 (1:32am) Age: 79 years old Clinical indication: Left leg swelling TECHNIQUE: Imaging protocol: Real-time Duplex ultrasound of the Left Lower Extremity with 2-D adair scale, color Doppler flow and spectral waveform analysis with image documentation. Limited exam focused on the left lower extremity veins. COMPARISON: US Duplex, Ext, lower veins,unilat of 06/14/18 FINDINGS: Left deep veins: Unremarkable. The common femoral, femoral, proximal profunda femoral and popliteal veins are patent without thrombus. Normal Doppler waveforms. Normal compressibility and/or augmentation response. Left superficial veins: Unremarkable. Saphenofemoral junction is patent without thrombus. Soft tissues: Unremarkable. IMPRESSION: No evidence of deep vein thrombosis (left leg). Electronically signed by: Diamante Kothari On 04/19/2020 02:28:41 AM
--- NOTE | 2020-04-19 02:38 | REPVR ---
PROCEDURE INFORMATION: Exam: US Retroperitoneal Limited, Kidneys Exam date and time: 04/19/20 (1:38am) Age: 79 years old Clinical indication: Abdominal pain. Possible obstructive uropathy (hydronephrosis). TECHNIQUE: Imaging protocol: Real-time ultrasound of the retroperitoneum with image documentation. Examination was focused on the kidneys. COMPARISON: No relevant prior studies available FINDINGS: RIGHT KIDNEY --- The right kidney measures 7.7 cm in length. No hydronephrosis nor mass. No upper tract stones. Simple lower pole cyst (3.3 x 3.1 x 3.4 cm size) (3.3 cm avg. size). LEFT KIDNEY --- The left kidney measures 9.6 cm in length. No hydronephrosis nor mass. No upper tract stones. Multiple cysts (largest at lower pole = 4.3 x 3.8 x 3.4 cm size) (3.8 cm avg. size). URINARY BLADDER --. No significant pathology. No stones nor mass IMPRESSION: No acute pathology. Moderate right renal atrophy. No hydronephrosis. No solid renal masses. Electronically signed by: Diamante Kothari On 04/19/2020 02:38:28 AM
[2020-04-19 04:00] VITALS: BP 148/64
[2020-04-19 05:28] LABS: HEMATOCRIT 33.7 % (36.0-47.0); HEMOGLOBIN 10.4 g/dl (12.0-15.5); MEAN CORPUSCULAR HEMOGLOBIN 29.2 pg (27.0-33.0); MEAN CORPUSCULAR HGB CONC 30.9 g/dl (32.0-36.5); MEAN CORPUSCULAR VOLUME 94.7 fl (80.0-96.0); PLATELET COUNT, AUTOMATED 183 10^3/uL (150-450); RED BLOOD COUNT 3.56 10^6/uL (4.00-5.40); WHITE BLOOD COUNT 5.8 10^3/uL (4.0-10.0)
[2020-04-19] MEDS: NS 1,000 ML IV SCH ×2 (05:39→14:45)
[2020-04-19 05:52] LABS: CALCIUM LEVEL 8.5 MG/DL (8.8-10.2); CREATININE FOR GFR 2.08 MG/DL (0.55-1.30); GLOMERULAR FILTRATION RATE 24.3 (>32); POTASSIUM SERUM 5.6 MEQ/L (3.5-5.1)
[2020-04-19 07:45] VITALS: BP 135/63
[2020-04-19 08:00] VITALS: BP 151/67
[2020-04-19] MEDS: ADVAIR HFA 230/21MCG INHALER INH SCH ×2 (08:00→19:31)
[2020-04-19] MEDS: LACTOBACILLUS ACIDOPHILUS CAP (BACID) PO SCH (08:56)
[2020-04-19] MEDS: allopurinoL 100 MG TAB PO SCH (08:56)
[2020-04-19] MEDS: PANTOPRAZOLE 40MG TAB (PROTONIX) PO SCH ×2 (08:56→22:19)
[2020-04-19] MEDS: ACETAMINOPHEN 500 MG TAB PO PRN ×2 (08:59→22:18)
[2020-04-19] MEDS: LIDOCAINE 5% (LIDODERM) PATCH TD SCH (09:00)
[2020-04-19] MEDS: ONDANSETRON 4MG/2ML VIAL IV PRN ×2 (09:38→22:18)
[2020-04-19 12:00] VITALS: BP 105/50
[2020-04-19 16:00] VITALS: BP 120/56
--- NOTE | 2020-04-19 16:46 | IPNPDOC ---
Subjective Date Seen The patient was seen on 04/19/20. Subjective Chief Complaint/HPI Mrs. Liu is a 79 year old female with bilateral lower extremity edema, hypertension, and sarcoidosis here with malaise, diffuse pain, and poor oral intake found to have acute kidney injury. Overnight, she wasn't able to sleep due to ultrasound testing and being moved up to room later in the night. Otherwise, nausea improved. Denies fever, chest pain, dyspnea, abdominal pain, or dysuria Constitutional: Denies: Fever Pulmonary: Denies: Dyspnea Cardiovascular: Denies: Chest Pain Gastrointestinal: Denies: Abdominal Pain Genitourinary: Denies: Dysuria Objective Physical Examination General Exam: Positive: Alert, Cooperative, No Acute Distress Eye Exam: Positive: EOMI; Negative: Sclera icteric ENT Exam: Positive: Atraumatic Neck Exam: Positive: Supple Chest Exam: Positive: Clear to auscultation; Negative: Rales, Rhonchi, Wheezing Heart Exam: Positive: Rate Normal, Regular Rhythm Abdomen Exam: Positive: Normal bowel sounds, Soft; Negative: Tenderness Extremity Exam: Positive: Edema (Left worse than right) Neuro Exam: Positive: Cranial Nerves 3-12 NL Psych Exam: Positive: Anxiety Assessment /Plan Assessment Mrs. Liu is a 79 year old female with bilateral lower extremity edema, hypertension, and sarcoidosis here with malaise, diffuse pain, and poor oral intake found to have acute kidney injury. MIRZA is most likely secondary to poor oral intake while on diuretics. The diuretics will be held, and she will be given fluids. Ultrasound negative for hydronephrosis. Renal function slowing improving. Continue with supportive care, volume expansion, and holding nephrotoxic agents. Plan/VTE VTE Prophylaxis Ordered?: Yes Plan 1. Acute kidney injury -Admission creatinine 2.71, baseline 1 -Secondary to poor oral intake in the setting of diuretic use -Hold nephrotoxic agents and renally adjust medications -Continue IVF -US kidney negative for obstructive uropathy 2. Hyperkalemia -Outpatient K 7.5, but may be error due to old sample -Repeat 5.1 -Monitor BMP while inpatient -Continue IVF to support kidney function 3. Gout -Reduce allopurinol dose to 50mg until renal function improves 4. Chronic pain -Hold tramadol -Substitute with acetaminophen -Continue bed time muscle relaxant -Add on lidocaine patch 5. Insomnia -Continue bed time muscle relaxant and Ativan 6. Anxiety/Depression -Hold paroxetine until renal function improves 7. COPD -Stable, continue inhalers 8. GERD -Continue pantoprazole 9. Left leg swelling -May be secondary to knee surgery -US left leg negative for DVT 10. DVT ppx -SCD and TEDs Dispo: Pending improvement in renal function VS, I&O, 24H, Fishbone Vital Signs/I&O Vital Signs Date Time Temp Pulse Resp B/P (MAP) Pulse Ox O2 Delivery O2 Flow Rate FiO2 04/19/20 12:00 98.3 62 20 105/50 (68) 93 Room Air I&O- Last 24 Hours up to 6 AM 04/19/20 06:00 Intake Total 478 ml Output Total 400 ml Balance 78 ml Laboratory Data 24H LABS Laboratory Tests 2 04/18/20 17:25: Urine Color COLORLESS, Urine Appearance CLEAR, Urine pH 5.0, Urine Specific [place] 1.005, Urine Protein NEGATIVE, Urine Glucose (UA) NEGATIVE, Urine Ketones NEGATIVE, Urine Blood NEGATIVE, Urine Nitrite NEGATIVE, Urine Bilirubin NEGATIVE, Urine Urobilinogen 0.2, Urine Leukocyte Esterase NEGATIVE, Urine WBC (Auto) 0, Urine RBC (Auto) 1, Urine Hyaline Casts (Auto) 0, Urine Bacteria (Auto) NEGATIVE, Urine Squamous Epithelial Cells 0, Urine Sperm (Auto) 04/18/20 23:37: Urine Color STRAW, Urine Appearance CLEAR, Urine pH 5.0, Urine Specific [place] 1.008, Urine Protein NEGATIVE, Urine Blood NEGATIVE, Urine Nitrite NEGATIVE, Urine Bilirubin NEGATIVE, Urine Urobilinogen 0.2, Urine WBC (Auto) 0, Urine RBC (Auto) 3, Urine Hyaline Casts (Auto) 0, Urine Bacteria (Auto) 1+H, Urine Squamous Epithelial Cells 0, Urine Sperm (Auto) , Urine Glucose (Auto)(UA) NEGATIVE, Urine Ketones (Auto) NEGATIVE, Urine Leukocyte Esterase (Auto) NEGATIVE, Urine Random Creatinine 26.1, Urine Random Sodium 72, Urine Random Urea Nitrogen 480 04/19/20 04:57: Nucleated Red Blood Cells % (auto) 0.0, Anion Gap 7L, Glomerular Filtration Rate 24.3L, Calcium Level 8.5L CBC/BMP Laboratory Tests 04/19/20 04:57 Microbiology Microbiology 04/18/20 Group A Streptococcus Screen (TATIANA) - Final, Complete 04/18/20 Group A Streptococcus Screen (TATIANA) - Final, Complete DOMINIC VALENZUELA DO Apr 19, 2020 16:46
[2020-04-19 17:26] LABS: CALCIUM LEVEL 8.7 MG/DL (8.8-10.2); GLOMERULAR FILTRATION RATE 25.5 (>32); POTASSIUM SERUM 5.8 MEQ/L (3.5-5.1)
[2020-04-19] MEDS ORDERED: PATIROMER SORBITEX CALCIUM 8.4 GM POWDER PACKET (VELTASSA) PO ONE (18:00)
[2020-04-19] MEDS: ALBUTEROL 90 MCG/ACT 8GM HFA INHALER INH PRN (19:31)
--- NOTE | 2020-04-19 19:37 | ECGEPIP ---
[facility] Test Date: 2020-04-19 Pat Name: PJ HEART Department: Room: [place] [address] Gender: Female Reservations Agent: JANESSA : 1940 Requested By: DOMINIC Marcum Order Number: [id number] Reading MD: Miles Vasquez Measurements Intervals [place] Rate: 79 P: 57 [place]: 173 QRS: 63 QRSD: 138 T: 47 QT: 355 QTc: 408 Interpretive Statements SINUS RHYTHM RIGHT BUNDLE BRANCH BLOCK NO CHANGE COMPARED TO 04/18/20 Electronically Signed on 04-19-2020 19:36:50 EDT by Miles Vasquez
[2020-04-19 20:00] VITALS: BP 136/67
[2020-04-19] MEDS: **NOTE PATIENT COMMENT** MISC XX SCH (22:19)
[2020-04-19] MEDS: MIRTAZAPINE 15 MG TAB PO SCH (22:19)
[2020-04-19] MEDS: ALPRAZolam 0.25 MG TAB PO SCH (22:19)
[2020-04-19] MEDS: carisoprodoL 350 MG TAB PO SCH (22:19)
[2020-04-19 23:17] LABS: CALCIUM LEVEL 8.9 MG/DL (8.8-10.2); CREATININE FOR GFR 1.72 MG/DL (0.55-1.30); GLOMERULAR FILTRATION RATE 30.3 (>32); POTASSIUM SERUM 5.7 MEQ/L (3.5-5.1)
[2020-04-20] VITALS (7 sets, daily range): BP systolic 122–166; BP diastolic 52–97
[2020-04-20] MEDS: NS 1,000 ML IV SCH ×3 (00:07→21:23)
[2020-04-20] MEDS ORDERED: PATIROMER SORBITEX CALCIUM 8.4 GM POWDER PACKET (VELTASSA) PO ONE ×2 (04:45→11:00)
[2020-04-20 05:21] LABS: HEMOGLOBIN 8.8 g/dl (12.0-15.5); MEAN CORPUSCULAR HEMOGLOBIN 29.1 pg (27.0-33.0); MEAN CORPUSCULAR HGB CONC 30.3 g/dl (32.0-36.5); PLATELET COUNT, AUTOMATED 162 10^3/uL (150-450); RED BLOOD COUNT 3.02 10^6/uL (4.00-5.40); WHITE BLOOD COUNT 5.5 10^3/uL (4.0-10.0)
[2020-04-20] MEDS: ONDANSETRON 4MG/2ML VIAL IV PRN ×2 (05:27→21:23)
[2020-04-20 05:50] LABS: CALCIUM LEVEL 8.5 MG/DL (8.8-10.2); CREATININE FOR GFR 1.61 MG/DL (0.55-1.30); GLOMERULAR FILTRATION RATE 32.7 (>32); POTASSIUM SERUM 5.9 MEQ/L (3.5-5.1)
[2020-04-20] MEDS: ACETAMINOPHEN 500 MG TAB PO PRN (06:14)
[2020-04-20] MEDS: ADVAIR HFA 230/21MCG INHALER INH SCH ×2 (07:28→19:47)
[2020-04-20] MEDS: PANTOPRAZOLE 40MG TAB (PROTONIX) PO SCH ×2 (08:39→21:23)
[2020-04-20] MEDS: LACTOBACILLUS ACIDOPHILUS CAP (BACID) PO SCH (08:39)
[2020-04-20] MEDS: allopurinoL 100 MG TAB PO SCH (08:39)
[2020-04-20] MEDS: LIDOCAINE 5% (LIDODERM) PATCH TD SCH (08:40)
[2020-04-20] MEDS: FLUTICASONE PROP 0.05% NASAL SPRAY 16 GM (FLONASE) NARES SCH ×2 (09:00→14:24)
[2020-04-20 10:00] LABS: HEMATOCRIT 33.8 % (36.0-47.0); HEMOGLOBIN 10.2 g/dl (12.0-15.5); MEAN CORPUSCULAR HEMOGLOBIN 28.9 pg (27.0-33.0); MEAN CORPUSCULAR HGB CONC 30.2 g/dl (32.0-36.5); MEAN CORPUSCULAR VOLUME 95.8 fl (80.0-96.0); PLATELET COUNT, AUTOMATED 194 10^3/uL (150-450); RED BLOOD COUNT 3.53 10^6/uL (4.00-5.40); WHITE BLOOD COUNT 6.6 10^3/uL (4.0-10.0)
--- NOTE | 2020-04-20 14:57 | IPNPDOC ---
Subjective Date Seen The patient was seen on 04/20/20. Subjective Chief Complaint/HPI Mrs. Liu is a 79 year old female with bilateral lower extremity edema, hypertension, and sarcoidosis here with malaise, diffuse pain, and poor oral intake found to have acute kidney injury. Last night, she felt anxious, but was able to sleep. This morning, appetite is better. Reports nasal congestion. Denies fever, chest pain, dyspnea, abdominal pain, or dysuria Constitutional: Denies: Fever Pulmonary: Denies: Dyspnea Cardiovascular: Denies: Chest Pain Gastrointestinal: Denies: Abdominal Pain Genitourinary: Denies: Dysuria Psych: Reports: Anxiety Objective Physical Examination General Exam: Positive: Alert, Cooperative, No Acute Distress Eye Exam: Positive: EOMI; Negative: Sclera icteric ENT Exam: Positive: Atraumatic Neck Exam: Positive: Supple Chest Exam: Positive: Clear to auscultation; Negative: Rales, Rhonchi, Wheezing Heart Exam: Positive: Rate Normal, Regular Rhythm Abdomen Exam: Positive: Normal bowel sounds, Soft; Negative: Tenderness Extremity Exam: Positive: Edema (Left worse than right) Skin Exam: Positive: Other skin issue (Bruises on arms from blood drawn/IV line loss) Neuro Exam: Positive: Cranial Nerves 3-12 NL Psych Exam: Positive: Anxiety Assessment /Plan Assessment Mrs. Liu is a 79 year old female with bilateral lower extremity edema, hypertension, and sarcoidosis here with malaise, diffuse pain, and poor oral intake found to have acute kidney injury. MIRZA is most likely secondary to poor oral intake while on diuretics. The diuretics will be held, and she will be given fluids. Ultrasound negative for hydronephrosis. Renal function slowing improving. Continue with supportive care, volume expansion, and holding nephrotoxic agents. Potassium continue to be elevated, but has been responding to Patiromer. This late morning, repeat potassium was 5.4. Will give another dose of Patiromer at noon and recheck BMP later in the evening. Initially considered GI bleed as possibility of hyperkalemia, but hemoglobin increased from 8.8 to 10.2. The 8.8 is an outlier. Continue following potassium and hemoglobin Plan/VTE VTE Prophylaxis Ordered?: Yes Plan 1. Acute kidney injury -Admission creatinine 2.71, baseline 1 -Secondary to poor oral intake in the setting of diuretic use -Hold nephrotoxic agents and renally adjust medications -Continue IVF -US kidney negative for obstructive uropathy -Creatinine down trending to 1.6 today 2. Hyperkalemia -Outpatient K 7.5, but may be error due to old sample -Potassium elevated, hemoglobin stable around 10 -Patiromer at noon, repeat BMP this afternoon -Monitor BMP while inpatient -Continue IVF to support kidney function 3. Gout -Reduce allopurinol dose to 50mg until renal function improves 4. Chronic pain -Hold tramadol -Substitute with acetaminophen -Continue bed time muscle relaxant -On lidocaine patch 5. Insomnia -Continue bed time muscle relaxant and Ativan 6. Anxiety/Depression -Hold paroxetine until renal function improves 7. COPD -Stable, continue inhalers 8. GERD -Continue pantoprazole 9. Left leg swelling -May be secondary to knee surgery -US left leg negative for DVT 10. DVT ppx -SCD and TEDs Dispo: Pending improvement in renal function. Hyperkalemia has not corrected despite improving renal function -Hyperkalemia from GI bleed, possible with elevated BUN, pending occult stool. Hgb stable -Hyperkalemia from tissue bleeding/hemolysis. Possible with bruising on arms. LDH is normal VS, I&O, 24H, Fishbone Vital Signs/I&O Vital Signs Date Time Temp Pulse Resp B/P (MAP) Pulse Ox O2 Delivery O2 Flow Rate FiO2 04/20/20 08:00 98.8 75 20 148/58 (88) 91 Room Air I&O- Last 24 Hours up to 6 AM 04/20/20 06:00 Intake Total 2410 ml Output Total 850 ml Balance 1560 ml Laboratory Data 24H LABS Laboratory Tests 2 04/19/20 16:44: Anion Gap 5L, Glomerular Filtration Rate 25.5L, Calcium Level 8.7L 04/19/20 22:47: Anion Gap 1L, Glomerular Filtration Rate 30.3L, Calcium Level 8.9 04/19/20 23:54: Bedside Glucose (Misc Panel) 90 04/20/20 04:46: Anion Gap 5L, Glomerular Filtration Rate 32.7, Calcium Level 8.5L, Reticulocyte # (auto) 46.1, Nucleated Red Blood Cells % (auto) 0.0, Percent Reticulocyte Count 1.5, Reticulocyte Hemoglobin Equivalent 31.3, Iron Level 24L, Total Iron Binding Capacity 341, Transferrin % Saturation 7.0L, Ferritin 21, Lactate Dehydrogenase 140 04/20/20 08:00: 04/20/20 09:44: Nucleated Red Blood Cells % (auto) 0.0 CBC/BMP Laboratory Tests 04/19/20 16:44 04/19/20 22:47 04/20/20 04:46 04/20/20 09:44 Microbiology Microbiology 04/18/20 Group A Streptococcus Screen (TATIANA) - Final, Complete 04/18/20 Group A Streptococcus Screen (TATIANA) - Final, Complete DOMINIC VALENZUELA DO Apr 20, 2020 14:56
[2020-04-20] MEDS: ALBUTEROL 90 MCG/ACT 8GM HFA INHALER INH PRN (15:16)
[2020-04-20 19:30] LABS: CALCIUM LEVEL 9.2 MG/DL (8.8-10.2); CREATININE FOR GFR 1.37 MG/DL (0.55-1.30); GLOMERULAR FILTRATION RATE 39.4 (>32); POTASSIUM SERUM 5.4 MEQ/L (3.5-5.1)
[2020-04-20] MEDS ORDERED: SOD POLYSTYRENE SULFONATE SUSP 15 GM/60 ML UD PO ONE (20:45)
[2020-04-20] MEDS: ALPRAZolam 0.25 MG TAB PO SCH (21:23)
[2020-04-20] MEDS: MIRTAZAPINE 15 MG TAB PO SCH (21:23)
[2020-04-20] MEDS: carisoprodoL 350 MG TAB PO SCH (21:23)
[2020-04-20] MEDS: **NOTE PATIENT COMMENT** MISC XX SCH (21:24)
[2020-04-21] VITALS (9 sets, daily range): BP systolic 136–190; BP diastolic 44–78
[2020-04-21] MEDS: ACETAMINOPHEN 500 MG TAB PO PRN (00:17)
[2020-04-21] MEDS: ALBUTEROL 90 MCG/ACT 8GM HFA INHALER INH PRN ×4 (00:37→17:22)
[2020-04-21 04:27] LABS: HEMATOCRIT 33.6 % (36.0-47.0); HEMOGLOBIN 10.2 g/dl (12.0-15.5); MEAN CORPUSCULAR HEMOGLOBIN 29.4 pg (27.0-33.0); MEAN CORPUSCULAR HGB CONC 30.4 g/dl (32.0-36.5); MEAN CORPUSCULAR VOLUME 96.8 fl (80.0-96.0); PLATELET COUNT, AUTOMATED 181 10^3/uL (150-450); RED BLOOD COUNT 3.47 10^6/uL (4.00-5.40); WHITE BLOOD COUNT 6.5 10^3/uL (4.0-10.0)
[2020-04-21 04:53] LABS: CALCIUM LEVEL 9.2 MG/DL (8.8-10.2); CREATININE FOR GFR 1.21 MG/DL (0.55-1.30); GLOMERULAR FILTRATION RATE 45.5 (>32); POTASSIUM SERUM 4.9 MEQ/L (3.5-5.1)
[2020-04-21] MEDS: NS 1,000 ML IV SCH (07:55)
[2020-04-21] MEDS: PANTOPRAZOLE 40MG TAB (PROTONIX) PO SCH ×2 (08:09→20:47)
[2020-04-21] MEDS: LACTOBACILLUS ACIDOPHILUS CAP (BACID) PO SCH (08:09)
[2020-04-21] MEDS: LIDOCAINE 5% (LIDODERM) PATCH TD SCH (08:10)
[2020-04-21] MEDS: allopurinoL 100 MG TAB PO SCH (08:10)
[2020-04-21] MEDS: ADVAIR HFA 230/21MCG INHALER INH SCH ×2 (08:33→19:51)
[2020-04-21] MEDS: ONDANSETRON 4MG/2ML VIAL IV PRN ×3 (10:05→23:19)
[2020-04-21] MEDS ORDERED: PINK BISMUTH SUSP 524MG/30ML ORAL SYRINGE PO PRN (11:15)
--- NOTE | 2020-04-21 12:25 | IPNPDOC ---
Subjective Date Seen The patient was seen on 04/21/20. Subjective Chief Complaint/HPI Mrs. Liu is a 79 year old female with bilateral lower extremity edema, hypertension, and sarcoidosis here with malaise, diffuse pain, and poor oral intake found to have acute kidney injury. Later morning, she had nausea and dry heaves. Zofran did not help, asked for Pepto bismol which has helped her in the past with similar symptoms. Otherwise denies diarrhea. Told me she had a good bowel movement this morning. Denies fever, chest pain, dyspnea, abdominal pain, or dysuria. She had ankle swelling and pain in legs today secondary to fluids Constitutional: Denies: Chills, Fever Pulmonary: Denies: Dyspnea Cardiovascular: Denies: Chest Pain Gastrointestinal: Reports: Nausea; Denies: Abdominal Pain, Diarrhea, Constipation Genitourinary: Denies: Dysuria Musculoskeletal: Reports: Other Symptoms (Foot pain and swelling secondary to fluid) Objective Physical Examination General Exam: Positive: Alert, Cooperative, No Acute Distress Eye Exam: Positive: EOMI; Negative: Sclera icteric ENT Exam: Positive: Atraumatic Neck Exam: Positive: Supple Chest Exam: Positive: Clear to auscultation; Negative: Rales, Rhonchi, Wheezing Heart Exam: Positive: Rate Normal, Regular Rhythm Abdomen Exam: Positive: Normal bowel sounds, Soft; Negative: Tenderness Extremity Exam: Positive: Edema (Left worse than right) Skin Exam: Positive: Other skin issue (Bruises on arms from blood drawn/IV line loss) Neuro Exam: Positive: Cranial Nerves 3-12 NL Psych Exam: Positive: Anxiety Assessment /Plan Assessment Mrs. Liu is a 79 year old female with bilateral lower extremity edema, hypertension, and sarcoidosis here with malaise, diffuse pain, and poor oral intake found to have acute kidney injury. MIRZA is most likely secondary to poor oral intake while on diuretics. The diuretics will be held, and she will be g iven fluids. Ultrasound negative for hydronephrosis. Renal function slowing improving. Continue with supportive care and holding nephrotoxic agents. Overnight, potassium was 5.4. She was given Kayexalate. This morning, potassium 4.9. Will continue following potassium to see if it stays persistently elevated. Otherwise, H&H has been stable. Renal function continues to improve. Not at baseline yet. Otherwise, this morning she had nausea, in the past she took Pepto Bismol which had help. Plan/VTE VTE Prophylaxis Ordered?: Yes Plan 1. Acute kidney injury -Admission creatinine 2.71, baseline 1 -Secondary to poor oral intake in the setting of diuretic use -Hold nephrotoxic agents and renally adjust medications -D/C fluids today to see how she does -US kidney negative for obstructive uropathy -Creatinine down trending to 1.2 today 2. Hyperkalemia -Outpatient K 7.5, but may be error due to old sample -Potassium elevated, hemoglobin stable around 10 -Monitor BMP while inpatient 3. Gout -Reduced allopurinol dose to 50mg on admission. Since there has been improvement, increased to 100mg 4. Chronic pain -Hold tramadol -Substitute with acetaminophen -Continue bed time muscle relaxant -On lidocaine patch 5. Insomnia -Continue bed time muscle relaxant and Ativan 6. Anxiety/Depression -Hold paroxetine until renal function improves 7. COPD -Stable, continue inhalers 8. GERD -Continue pantoprazole 9. Left leg swelling -May be secondary to knee surgery -US left leg negative for DVT 10. DVT ppx -SCD and TEDs Dispo: Monitoring potassium as persistently elevated. Otherwise continue supportive care for MIRZA VS, I&O, 24H, Fishbone Vital Signs/I&O Vital Signs Date Time Temp Pulse Resp B/P (MAP) Pulse Ox O2 Delivery O2 Flow Rate FiO2 04/21/20 07:42 98.5 87 18 168/68 (101) 90 Room Air I&O- Last 24 Hours up to 6 AM 04/21/20 06:00 Intake Total 1368 ml Output Total 250 ml Balance 1118 ml Laboratory Data 24H LABS Laboratory Tests 2 04/20/20 18:54: Anion Gap 4L, Glomerular Filtration Rate 39.4, Calcium Level 9.2 04/21/20 04:06: Anion Gap 3L, Glomerular Filtration Rate 45.5, Calcium Level 9.2, Nucleated Red Blood Cells % (auto) 0.0 CBC/BMP Laboratory Tests 04/20/20 18:54 04/21/20 04:06 Microbiology Microbiology 04/20/20 Stool Occult Blood (TATIANA) - Final, Complete 04/18/20 Group A Streptococcus Screen (TATIANA) - Final, Complete 04/18/20 Group A Streptococcus Screen (TATIANA) - Final, Complete DOMINIC VALENZUELA DO Apr 21, 2020 12:25
[2020-04-21 13:37] LABS: CALCIUM LEVEL 9.5 MG/DL (8.8-10.2); CREATININE FOR GFR 1.14 MG/DL (0.55-1.30); GLOMERULAR FILTRATION RATE 48.7 (>32); POTASSIUM SERUM 4.9 MEQ/L (3.5-5.1)
[2020-04-21] MEDS ORDERED: hydrALAZINE 20MG/ML 1ML VIAL (J0360 PER 20MG) IV ONE (14:15)
--- NOTE | 2020-04-21 14:15 | REPVR ---
PROCEDURE INFORMATION: Exam: XR Chest, 2 Views Exam date and time: 04/21/2020 12:39 PM Age: 79 years old Clinical indication: Chest pain; Additional info: Fever TECHNIQUE: Imaging protocol: XR of the chest Views: 2 views. COMPARISON: CR Chest, 2 view PA, Lat 04/18/2020 4:17 PM FINDINGS: Lungs: Bilateral perihilar interstitial prominence. Norman B septal lines noted at the left lung base.. No consolidation. Pleural space: Elevation right hemidiaphragm. No pleural effusion. No pneumothorax. Heart/Mediastinum: Prominence of the pulmonary arteries No cardiomegaly. Bones/joints: Degenerative changes in the cervicothoracic spine. Tubes, lines: External monitoring devices present. IMPRESSION: Prominence of the central pulmonary vessels with increase in perihilar interstitial markings and septal lines at the left lung base suggest interstitial edema. Electronically signed by: Ruth Rausch On 04/21/2020 14:14:51 PM
[2020-04-21] MEDS ORDERED: FUROSEMIDE 40MG/4ML VIAL (J1940) IV ONE (17:00)
[2020-04-21] MEDS: **NOTE PATIENT COMMENT** MISC XX SCH (20:47)
[2020-04-21] MEDS: carisoprodoL 350 MG TAB PO SCH (20:47)
[2020-04-21] MEDS: ALPRAZolam 0.25 MG TAB PO SCH (20:47)
[2020-04-21] MEDS: MIRTAZAPINE 15 MG TAB PO SCH (20:47)
[2020-04-22] VITALS: BP 144/82
[2020-04-22 04:00] VITALS: BP 132/84
[2020-04-22] MEDS: ALBUTEROL 90 MCG/ACT 8GM HFA INHALER INH PRN (04:09)
[2020-04-22 05:15] LABS: HEMATOCRIT 31.1 % (36.0-47.0); HEMOGLOBIN 9.4 g/dl (12.0-15.5); MEAN CORPUSCULAR HEMOGLOBIN 29.4 pg (27.0-33.0); MEAN CORPUSCULAR HGB CONC 30.2 g/dl (32.0-36.5); MEAN CORPUSCULAR VOLUME 97.2 fl (80.0-96.0); PLATELET COUNT, AUTOMATED 147 10^3/uL (150-450)
[2020-04-22 05:43] LABS: CREATININE FOR GFR 1.14 MG/DL (0.55-1.30); GLOMERULAR FILTRATION RATE 48.7 (>32); POTASSIUM SERUM 4.4 MEQ/L (3.5-5.1)
[2020-04-22 07:47] VITALS: BP 142/78
[2020-04-22] MEDS: ADVAIR HFA 230/21MCG INHALER INH SCH ×2 (07:52→19:35)
[2020-04-22] MEDS ORDERED: allopurinoL 100 MG TAB PO SCH (09:00)
[2020-04-22] MEDS: FLUTICASONE PROP 0.05% NASAL SPRAY 16 GM (FLONASE) NARES SCH (09:11)
[2020-04-22] MEDS: LIDOCAINE 5% (LIDODERM) PATCH TD SCH (09:11)
[2020-04-22] MEDS: PANTOPRAZOLE 40MG TAB (PROTONIX) PO SCH ×2 (09:11→21:23)
[2020-04-22] MEDS: LACTOBACILLUS ACIDOPHILUS CAP (BACID) PO SCH (09:11)
[2020-04-22] MEDS: FUROSEMIDE 40 MG TAB PO SCH (11:47)
[2020-04-22 11:49] VITALS: BP 140/58
--- NOTE | 2020-04-22 15:08 | IPNPDOC ---
Subjective Date Seen The patient was seen on 04/22/20. Subjective Chief Complaint/HPI Mrs. Liu is a 79 year old female with bilateral lower extremity edema, hypertension, and sarcoidosis here with malaise, diffuse pain, and poor oral intake found to have acute kidney injury. Yesterday afternoon, she had a fever of 100.6. Blood cultures had no growth for 24 hours. UA had no nitrites, but trace leukocytes. No pneumonia on CXR. Today, denies fever, chest pain, dyspnea, abdominal pain, or dysuria Constitutional: Denies: Chills, Fever Pulmonary: Denies: Dyspnea Cardiovascular: Denies: Chest Pain Gastrointestinal: Denies: Abdominal Pain Genitourinary: Denies: Dysuria Objective Physical Examination General Exam: Positive: Alert, Cooperative, No Acute Distress Eye Exam: Positive: EOMI; Negative: Sclera icteric ENT Exam: Positive: Atraumatic Neck Exam: Positive: Supple Chest Exam: Positive: Clear to auscultation; Negative: Rales, Rhonchi, Wheezing Heart Exam: Positive: Rate Normal, Regular Rhythm Abdomen Exam: Positive: Normal bowel sounds, Soft; Negative: Tenderness Extremity Exam: Positive: Edema (Left worse than right) Skin Exam: Positive: Other skin issue (Bruises on arms from blood drawn/IV line loss) Neuro Exam: Positive: Cranial Nerves 3-12 NL Psych Exam: Positive: Anxiety Assessment /Plan Assessment Mrs. Liu is a 79 year old female with bilateral lower extremity edema, hypertension, and sarcoidosis here with malaise, diffuse pain, and poor oral intake found to have acute kidney injury. MIRZA is most likely secondary to poor oral intake while on diuretics. The diuretics will be held, and she will be given fluids. Ultrasound negative for hydronephrosis. Renal function slowing improving. Continue with supportive care and holding nephrotoxic agents. Renal function improved, but had nausea yesterday. CXR demonstrated interstitial edema. Her nausea may be related to GI edema. Restarted PO lasix today. Plan/VTE VTE Prophylaxis Ordered?: Yes Plan 1. Acute kidney injury -Admission creatinine 2.71, baseline 1 -Secondary to poor oral intake in the setting of diuretic use -Hold nephrotoxic agents and renally adjust medications -D/C fluids today to see how she does -US kidney negative for obstructive uropathy 2. Hyperkalemia -Outpatient K 7.5, but may be error due to old sample -Potassium elevated, hemoglobin stable around 10 -Restarting Lasix, monitor BMP 3. Gout -Reduced allopurinol dose to 50mg on admission. Renal function improved, returned dosage to home dosage 4. Chronic pain -Hold tramadol -Substitute with acetaminophen -Continue bed time muscle relaxant -On lidocaine patch 5. Insomnia -Continue bed time muscle relaxant and Ativan 6. Anxiety/Depression -Hold paroxetine until renal function improves 7. COPD -Stable, continue inhalers 8. GERD -Continue pantoprazole 9. Left leg swelling -May be secondary to knee surgery -US left leg negative for DVT 10. DVT ppx -SCD and TEDs VS, I&O, 24H, Fishbone Vital Signs/I&O Vital Signs Date Time Temp Pulse Resp B/P (MAP) Pulse Ox O2 Delivery O2 Flow Rate FiO2 04/22/20 11:49 98.4 83 16 140/58 (85) 92 Room Air I&O- Last 24 Hours up to 6 AM 04/22/20 06:00 Intake Total 750 ml Output Total 2350 ml Balance -1600 ml Laboratory Data 24H LABS Laboratory Tests 2 04/21/20 15:55: Urine Color YELLOW, Urine Appearance HAZY, Urine pH 5.0, Urine Specific [place] 1.012, Urine Protein NEGATIVE, Urine Glucose (UA) NEGATIVE, Urine Ketones TRACEH, Urine Blood NEGATIVE, Urine Nitrite NEGATIVE, Urine Bilirubin NEGATIVE, Urine Urobilinogen 0.2, Urine Leukocyte Esterase TRACEH, Urine WBC (Auto) 3, Urine RBC (Auto) 3, Urine Hyaline Casts (Auto) 1, Urine Bacteria (Auto) 1+H, Urine Squamous Epithelial Cells 3, Urine Mucus (Auto) SMALL, Urine Sperm (Auto) 04/22/20 04:41: Nucleated Red Blood Cells % (auto) 0.3H, Anion Gap 6L, Glomerular Filtration Rate 48.7, Calcium Level 9.0 CBC/BMP Laboratory Tests 04/22/20 04:41 Microbiology Microbiology 04/21/20 Urine Culture - Final, Complete 04/21/20 Blood Culture - Preliminary, Resulted No growth after 24 hours . All specim... 04/21/20 Blood Culture - Preliminary, Resulted No growth after 24 hours . All specim... 04/20/20 Stool Occult Blood (TATIANA) - Final, Complete 04/18/20 Group A Streptococcus Screen (TATIANA) - Final, Complete 04/18/20 Group A Streptococcus Screen (TATIANA) - Final, Complete DOMINIC VALENZUELA DO Apr 22, 2020 15:08
[2020-04-22] MEDS: ONDANSETRON 4MG/2ML VIAL IV PRN (15:41)
[2020-04-22 16:00] VITALS: BP 138/68
[2020-04-22 20:00] VITALS: BP 127/59
[2020-04-22] MEDS: **NOTE PATIENT COMMENT** MISC XX SCH (21:00)
[2020-04-22] MEDS: carisoprodoL 350 MG TAB PO SCH (21:22)
[2020-04-22] MEDS: ALPRAZolam 0.25 MG TAB PO SCH (21:23)
[2020-04-22] MEDS: MIRTAZAPINE 15 MG TAB PO SCH (21:23)
[2020-04-23] VITALS: BP 126/60
[2020-04-23 04:00] VITALS: BP 156/79
[2020-04-23 05:58] LABS: HEMATOCRIT 29.1 % (36.0-47.0); HEMOGLOBIN 8.8 g/dl (12.0-15.5); MEAN CORPUSCULAR HEMOGLOBIN 28.9 pg (27.0-33.0); MEAN CORPUSCULAR HGB CONC 30.2 g/dl (32.0-36.5); MEAN CORPUSCULAR VOLUME 95.7 fl (80.0-96.0); PLATELET COUNT, AUTOMATED 144 10^3/uL (150-450); RED BLOOD COUNT 3.04 10^6/uL (4.00-5.40); WHITE BLOOD COUNT 5.7 10^3/uL (4.0-10.0)
[2020-04-23 06:16] LABS: CALCIUM LEVEL 8.4 MG/DL (8.8-10.2); CREATININE FOR GFR 1.17 MG/DL (0.55-1.30); GLOMERULAR FILTRATION RATE 47.3 (>32); POTASSIUM SERUM 4.2 MEQ/L (3.5-5.1)
--- NOTE | 2020-04-23 06:50 | ECHO ---
DATE OF PROCEDURE: 04/20/2020 Age: 79 Gender: Female REFERRING PROVIDER: Dr. Pena PATIENT LOCATION: Room 3213 REASON FOR STUDY: Heart murmur. 2D MEASUREMENTS: IVS 1.1 cm LV 4.1 cm LVPW 1.0 cm LA 4.5 cm Aorta 2.9 cm IVC 2.7 cm DOPPLER MEASUREMENT Peak velocity across the aortic valve 1.6 m/s Peak velocity across the LVOT 1.0 m/s Peak gradient across the aortic valve 10 mmHg Mean gradient across the aortic valve 5 mmHg Mitral E 1.7 Mitral A 1.7 with a ratio of 1.0 Maximum tricuspid valve velocity 3.8 m/s 2D COMMENTS: 1. Normal left ventricular size, wall thickness, and normal global left ventricular systolic function. The estimated left ventricular systolic ejection fraction (LVEF) is 65% to 70%. 2. Mildly enlarged left atrium. The right atrium may be mildly enlarged. Normal right ventricle. 3. The atrial septum appeared to be normal without evidence of defect or shunt. 4. Normal aortic root. 5. No pericardial effusion seen. 6. Mildly calcified aortic valve with normal leaflet excursion. Moderately calcified mitral annulus with normal anterior mitral valve leaflet motion. Normal tricuspid valve. The pulmonic valve and proximal pulmonary artery branches were not well visualized. 7. The inferior vena cava is dilated, central venous pressure mildly elevated. Doppler detects swoa-pc-tojloppa mitral regurgitation and rkmwgotr-wg-lwbdzz tricuspid regurgitation. The calculated pulmonary artery systolic pressure varied between 50 to 60 mmHg. Abnormal relaxation pattern was noted across the mitral valve annulus consistent with features of grade 1 left ventricular diastolic dysfunction. IMPRESSION: 1. Normal global left ventricular systolic function. There are some features of grade 1 left ventricular diastolic dysfunction manifested by abnormal relaxation. 2. Aortic valve sclerosis with trivial aortic stenosis, but no aortic regurgitation. 3. Mitral annulus calcification with uzvx-lf-stonsiif mitral regurgitation. No evidence of mitral stenosis. 4. Yrrqenza-cg-mghaik tricuspid regurgitation with jcwyovov-rb-pskmmu pulmonary hypertension. 5. There are features of elevated central venous pressure, the inferior vena cava is mildly enlarged. MTDD
[2020-04-23] MEDS: ADVAIR HFA 230/21MCG INHALER INH SCH (07:18)
[2020-04-23 08:00] VITALS: BP 151/68
[2020-04-23] MEDS ORDERED: FURO40TA2 PO (08:54)
[2020-04-23] MEDS ORDERED: allopurinoL 100 MG TAB PO SCH (09:00)
[2020-04-23] MEDS: LIDOCAINE 5% (LIDODERM) PATCH TD SCH (09:36)
[2020-04-23] MEDS: PANTOPRAZOLE 40MG TAB (PROTONIX) PO SCH (09:37)
[2020-04-23] MEDS: FUROSEMIDE 40 MG TAB PO SCH (09:37)
[2020-04-23] MEDS: LACTOBACILLUS ACIDOPHILUS CAP (BACID) PO SCH (09:37)
--- NOTE | 2020-04-24 00:12 | DS.PDOC ---
Discharge Summary General Date of Admission Apr 18, 2020 at 18:19 Date of Discharge Apr 23, 2020 Attending Physician: DOMINIC VALENZUELA DO Discharge Summary PROCEDURES PERFORMED DURING STAY: None ADMITTING DIAGNOSES: 1. Acute kidney injury 2. Hyperkalemia 3. Gout 4. Chronic pain 5. Insomnia 6. Anxiety/Depression 7. COPD 8. GERD 9. Left leg swelling DISCHARGE DIAGNOSES: 1. Acute kidney injury 2. Hyperkalemia 3. Gout 4. Chronic pain 5. Insomnia 6. Anxiety/Depression 7. COPD 8. GERD 9. Left leg swelling COMPLICATIONS/CHIEF COMPLAINT: Jayro,Left Leg Swelling. HISTORY OF PRESENT ILLNESS: Mrs. Liu is a 79 year old female with bilateral lower extremity edema, hypertension, and sarcoidosis here with malaise, diffuse pain, and poor oral intake found to have acute kidney injury. She has been working with physical therapy for ambulation and chronic back pain. This week, she started to have diffuse pain and malaise. She thought she had pushed herself too hard. In addition to the malaise, she developed anorexia. Then in the past 3 days, she developed dizziness/lightheadedness with sore throat and dry cough. She visit her primary who did routine labs. The initial potassium was 7.5, but this blood specimen was left out overnight. Repeat labs here demonstrate a potassium of 5.1. Otherwise, her labs demonstrate JAYRO with creatinine increase to 2.71 from a baseline of 1. At home, she has been taking furosemide 80mg BID. She tells me she was taking the furosemide for bilateral leg swelling and denies history of CHF. We spoke about holding her furosemide and adjusting her medications while she is here. HOSPITAL COURSE: During her hospitalization, her renal function improved with fluids and holding diuretics. She did have an episode of fever, but UA was unremarkable, blood cultures demonstrated no growth for 48 hours, and chest xray only demonstrated left lung edema. At that point, her fluids were stopped and was given a dose of IV Lasix. Today, I restarted her PO Lasix at 40mg qD and restarted the rest of her home medication excluding her spironolactone. I instructed her that if her oral intake is poor to contact her PCP about what to do with her diuretics. Also instructed her to measure her weight daily. Today, she was feeling well. Denies fever/chills, chest pain, dyspnea, abdominal pain, or dysuria. She was subsequently discharged home today. DISCHARGE MEDICATIONS: Please see below. ALLERGIES: Please see below. PHYSICAL EXAMINATION ON DISCHARGE: VITAL SIGNS: Please see below. GENERAL: Comfortable, in no apparent distress HEENT: Head normocephalic, atraumatic, EOMI, Sclera clear NECK: Supple CARDIOVASCULAR EXAMINATION: Regular rate and rhythm RESPIRATORY EXAMINATION: Clear to auscultation bilaterally ABDOMINAL EXAMINATION: Soft, non-tender, normal bowel sounds EXTREMITIES: Bilateral pitting edema SKIN: No rashes NEUROLOGICAL EXAMINATION: CN 3-12 grossly intact PSYCHIATRIC EXAMINATION: Normal mood and affect LABORATORY DATA: Please see below. IMAGING: CXR Prominence of the central pulmonary vessels with increase in perihilar interstitial markings and septal lines at the left lung base suggest interstitial edema. US left leg No evidence of deep vein thrombosis (left leg). PROGNOSIS: Stable ACTIVITY: As tolerated. DIET: 2g sodium diet DISCHARGE PLAN: Home DISPOSITION: Home, Self-Care. DISCHARGE INSTRUCTIONS: 1. Follow up with your PCP within a week 2. Measure your weight daily. Report to your PCP if you gain more than 3lbs in a day DISCHARGE CONDITION: Stable Total time spent on discharge planning, discharge summary, and medication reconciliation 45 minutes Vital Signs/I&Os Vital Signs Date Time Temp Pulse Resp B/P (MAP) Pulse Ox O2 Delivery O2 Flow Rate FiO2 04/23/20 08:00 98.2 82 16 151/68 (95) 93 Room Air I&O- Last 24 Hours up to 6 AM 04/23/20 06:00 Intake Total 1020 ml Output Total 900 ml Balance 120 ml Laboratory Data Labs 24H Laboratory Tests 2 04/23/20 05:20: Nucleated Red Blood Cells % (auto) 0.3H, Anion Gap 7L, Glomerular Filtration Rate 47.3, Calcium Level 8.4L CBC/BMP Laboratory Tests 04/23/20 05:20 Microbiology Microbiology 04/21/20 Urine Culture - Final, Complete 04/21/20 Blood Culture - Preliminary, Resulted No Growth after 48 hours. All Specime... 04/21/20 Blood Culture - Preliminary, Resulted No Growth after 48 hours. All Specime... 04/20/20 Stool Occult Blood (TATIANA) - Final, Complete 04/18/20 Group A Streptococcus Screen (TATIANA) - Final, Complete 04/18/20 Group A Streptococcus Screen (TATIANA) - Final, Complete Discharge Medications Scheduled Allopurinol (Allopurinol) 100 Mg Tab, 200 MG PO DAILY, (Reported) Alprazolam (Alprazolam) 0.25 Mg Tab, 0.25 MG PO QHS, (Reported) Carisoprodol (Carisoprodol) 350 Mg Tab, 350 MG PO QHS, (Reported) Ergocalciferol (Vitamin D2) (Vitamin D2) 50,000 Units Cap, 50,000 UNITS PO QWEEK, (Reported) WEDNESDAYS Esomeprazole Magnesium (Nexium) 40 Mg Cap, 40 MG PO BID, (Reported) Fluticasone Propion/Salmeterol (Advair Hfa 230-21 Mcg Inhaler) 12 Gm Hfa.aer.ad, 2 PUFF INH BID, (Reported) Furosemide (Furosemide) 40 Mg Tablet, 40 MG PO DAILY Lactobacillus Combo No.10 (Probiotic) 1 Each Capsule, 1 CAP PO DAILY, (Reported) Lisinopril (Lisinopril) 20 Mg Tab, 20 MG PO DAILY, (Reported) Mirtazapine (Remeron) 15 Mg Tablet, 15 MG PO QHS, (Reported) Multivitamin with Minerals (Hair, Skin and Nails) 1 Each Tablet, 1 TAB PO DAILY, (Reported) Paroxetine (Paroxetine HCl) 30 Mg Tablet, 30 MG PO DAILY, (Reported) Pravastatin Sodium (Pravastatin Sodium) 20 Mg Tablet, 20 MG PO QHS, (Reported) Tramadol HCl/Acetaminophen (Tramadol-Acetaminophn 37.5-325) 1 Each Tablet, 1 TAB PO QHS, (Reported) Vits A,C,E/Lutein/Minerals (Ocuvite with Lutein Tablet) 1 Each Tablet, 1 TAB PO DAILY, (Reported) Scheduled PRN Albuterol Sulfate (Ventolin Hfa) 18 Gm Hfa.aer.ad, 2 PUFF INH Q6H PRN for SHORTNESS OF BREATH, (Reported) Alprazolam (Alprazolam) 0.25 Mg Tablet, 0.25 MG PO DAILY PRN for ANXIETY, (Reported) Tramadol HCl/Acetaminophen (Tramadol-Acetaminophn 37.5-325) 1 Each Tablet, 1 TAB PO Q6H PRN for PAIN, (Reported) Allergies Coded Allergies: codeine (Verified Allergy, Intermediate, " deathly sick" , 04/18/20) DOMINIC VALENZUELA DO Apr 24, 2020 00:00
== END 2020-04-23 11:42 | disposition home or self-care (01) | DRG 684 ==
LOC: M ED 15:41 → M PCU 18:19 → ENRESERV 18:30 → M PCU 21:20
PROVIDERS: ADMIT Internal Medicine; ATTEND Internal Medicine
DX: N17.9 Acute kidney failure, unspecified (principal); R60.0 Localized edema; I10 Essential (primary) hypertension; D86.9 Sarcoidosis, unspecified; R53.81 Other malaise; R63.0 Anorexia; E78.5 Hyperlipidemia, unspecified; K21.9 Gastro-esophageal reflux disease without esophagitis; M19.90 Unspecified osteoarthritis, unspecified site; F32.9 Major depressive disorder, single episode, unspecified; E87.5 Hyperkalemia; M10.9 Gout, unspecified; G89.29 Other chronic pain; G47.00 Insomnia, unspecified; J44.9 Chronic obstructive pulmonary disease, unspecified; F41.9 Anxiety disorder, unspecified; Z90.49 Acquired absence of other specified parts of digestive tract; Z96.652 Presence of left artificial knee joint; Z79.899 Other long term (current) drug therapy; Z88.5 Allergy status to narcotic agent

== ENCOUNTER → 2020-05-04 | Outpatient (REF) | payer BC ==
[~2020-05-04] MED LIST changes: +ADVA230A INH; +CVS-161 PO; +CVS1CAP2 PO; +FURO40TA2 PO; +OCUVTAB PO; +PARO30TA65 PO; +PRAV20TA2 PO; +REME15TA PO; +SPIR-10 PO; +TRAM37.53 PO; +VENTAER INH; +VITA50005 PO
[2020-05-04 18:52] LABS: HEMATOCRIT 38.6 % (36.0-47.0); HEMOGLOBIN 11.8 g/dl (12.0-15.5); MEAN CORPUSCULAR HEMOGLOBIN 28.6 pg (27.0-33.0); MEAN CORPUSCULAR HGB CONC 30.6 g/dl (32.0-36.5); MEAN CORPUSCULAR VOLUME 93.7 fl (80.0-96.0); PLATELET COUNT, AUTOMATED 252 10^3/uL (150-450); RED BLOOD COUNT 4.12 10^6/uL (4.00-5.40); WHITE BLOOD COUNT 5.9 10^3/uL (4.0-10.0)
[2020-05-04 19:20] LABS: ALBUMIN 4.1 GM/DL (3.2-5.2); BILIRUBIN,TOTAL 0.5 MG/DL (0.2-1.0); CALCIUM LEVEL 9.7 MG/DL (8.8-10.2); CREATININE FOR GFR 1.34 MG/DL (0.55-1.30); GLOMERULAR FILTRATION RATE 40.4 (>32); POTASSIUM SERUM 4.7 MEQ/L (3.5-5.1); TOTAL PROTEIN 7.8 GM/DL (6.4-8.2)
== END ==
LOC: M SFHCADAM 13:22
PROVIDERS: ATTEND Family Medicine
DX: I51.89 Other ill-defined heart diseases (principal); R60.0 Localized edema

== ENCOUNTER → 2020-07-24 | Outpatient (REF) | payer BC ==
[~2020-07-24] MED LIST changes: +MIRT-62 PO; -REME15TA PO
[2020-07-24 12:42] LABS: HEMATOCRIT 39.2 % (36.0-47.0); HEMOGLOBIN 11.8 g/dl (12.0-15.5); MEAN CORPUSCULAR HEMOGLOBIN 27.8 pg (27.0-33.0); MEAN CORPUSCULAR HGB CONC 30.1 g/dl (32.0-36.5); MEAN CORPUSCULAR VOLUME 92.5 fl (80.0-96.0); PLATELET COUNT, AUTOMATED 231 10^3/uL (150-450); RED BLOOD COUNT 4.24 10^6/uL (4.00-5.40); WHITE BLOOD COUNT 5.5 10^3/uL (4.0-10.0)
[2020-07-24 15:04] LABS: BLOOD UREA NITROGEN 22 MG/DL (7-18); CALCIUM LEVEL 9.4 MG/DL (8.8-10.2); CARBON DIOXIDE LEVEL 34 MEQ/L (21-32); CHLORIDE LEVEL 105 MEQ/L (98-107); CREATININE FOR GFR 0.87 MG/DL (0.55-1.30); GLOMERULAR FILTRATION RATE > 60.0 (>32); GLUCOSE, FASTING 92 MG/DL (70-100); POTASSIUM SERUM 4.1 MEQ/L (3.5-5.1); SODIUM LEVEL 143 MEQ/L (136-145)
== END ==
LOC: M SFHCADAM 07:56
PROVIDERS: ATTEND Family Medicine
DX: I51.89 Other ill-defined heart diseases (principal)

== ENCOUNTER → 2021-01-10 | Outpatient (REF) | payer BC ==
[~2021-01-10] MED LIST changes: +ERGO500029 PO; -LISI-538 PO; +LISI20TA33 PO; -VITA50005 PO
== END ==
LOC: M LAB REF 16:24
PROVIDERS: ATTEND Dermatology
DX: C44.311 Basal cell carcinoma of skin of nose (principal)

== ENCOUNTER → 2021-01-23 | Outpatient (REF) | payer BC ==
[2021-01-23 16:47] LABS: HEMATOCRIT 38.3 % (36.0-47.0); HEMOGLOBIN 11.6 g/dl (12.0-15.5); MEAN CORPUSCULAR HGB CONC 30.3 g/dl (32.0-36.5); MEAN CORPUSCULAR VOLUME 89.3 fl (80.0-96.0); PLATELET COUNT, AUTOMATED 229 10^3/uL (150-450); RED BLOOD COUNT 4.29 10^6/uL (4.00-5.40); WHITE BLOOD COUNT 6.5 10^3/uL (4.0-10.0)
[2021-01-23 17:29] LABS: ALBUMIN 3.6 GM/DL (3.2-5.2); ALT/SGPT 22 U/L (12-78); BILIRUBIN,TOTAL 0.3 MG/DL (0.2-1.0); BLOOD UREA NITROGEN 25 MG/DL (7-18); CALCIUM LEVEL 8.9 MG/DL (8.8-10.2); CARBON DIOXIDE LEVEL 35 MEQ/L (21-32); CHLORIDE LEVEL 103 MEQ/L (98-107); CHOLESTEROL LEVEL 206 MG/DL (<200); CHOLESTEROL RISK RATIO 3.218 (<5); CREATININE FOR GFR 0.78 MG/DL (0.55-1.30); FOLATE 13.9 NG/ML; FREE T4 0.94 NG/DL (0.76-1.46); GLOMERULAR FILTRATION RATE > 60.0 (>32); GLUCOSE, FASTING 78 MG/DL (70-100); HDL CHOLESTEROL 64 MG/DL (>40); LDL CHOLESTEROL 120 MG/DL (<100); NON-HDL-C 142 MG/DL; POTASSIUM SERUM 4.3 MEQ/L (3.5-5.1); SODIUM LEVEL 142 MEQ/L (136-145); TOTAL 25(OH) VITAMIN D 75.2 NG/ML (30.0-100.0); TOTAL PROTEIN 6.9 GM/DL (6.4-8.2); TRIGLYCERIDES LEVEL 109 MG/DL (<150); VITAMIN B12 LEVEL 541 PG/ML
== END ==
LOC: M SFHCADAM 14:50
PROVIDERS: ATTEND Physician Assistant
DX: I50.33 Acute on chronic diastolic (congestive) heart failure (principal); E78.5 Hyperlipidemia, unspecified; I10 Essential (primary) hypertension; R26.9 Unspecified abnormalities of gait and mobility

== ENCOUNTER 2021-09-01 05:54 | Inpatient (IN) | payer MEDICARE, BC ==
[~2021-09-01] VITALS: Ht 152.4 cm; Wt 85.0 kg
[2021-09-01] VITALS (7 sets, daily range): BP systolic 101–187; BP diastolic 50–80
[2021-09-01 06:46] LABS: BASO % 0.5 % (0.0-1.0); EOS # 0.1 10^3/uL (0.0-0.5); EOS % 0.9 % (0.0-3.0); HEMATOCRIT 38.9 % (36.0-47.0); HEMOGLOBIN 11.8 g/dl (12.0-15.5); LYMPH # 0.7 10^3/uL (1.5-5.0); LYMPH % 10.8 % (24.0-44.0); MEAN CORPUSCULAR HEMOGLOBIN 26.2 pg (27.0-33.0); MEAN CORPUSCULAR HGB CONC 30.3 g/dl (32.0-36.5); MEAN CORPUSCULAR VOLUME 86.4 fl (80.0-96.0); MONO # 0.2 10^3/uL (0.0-0.8); MONO % 3.7 % (2.0-8.0); NEUTROPHILS # 5.5 10^3/uL (1.5-8.5); NEUTROPHILS % 83.6 % (36.0-66.0); PLATELET COUNT, AUTOMATED 189 10^3/uL (150-450); WHITE BLOOD COUNT 6.5 10^3/uL (4.0-10.0)
[2021-09-01 07:09] LABS: CALCIUM LEVEL 9.4 MG/DL (8.8-10.2); CK-MB VALUE MASS 4.7 NG/ML (<3.6); CREATININE FOR GFR 1.11 MG/DL (0.55-1.30); GLOMERULAR FILTRATION RATE 50.1 (>32); MB/CK RELATIVE INDEX 2.73 (< OR =4); POTASSIUM SERUM 4.2 MEQ/L (3.5-5.1)
[2021-09-01 08:37] LABS: CK-MB VALUE MASS 4.1 NG/ML (<3.6); MB/CK RELATIVE INDEX 2.38 (< OR =4)
[2021-09-01] MEDS ORDERED: D5W/0.45% SODIUM CHLORIDE 1,000 ML IV SCH (09:00)
[2021-09-01] MEDS ORDERED: FURO80TA2 PO (09:17)
[2021-09-01] MEDS ORDERED: ADVA45AE INH (09:17)
[2021-09-01] MEDS ORDERED: HOME MED LIST COMPLETE! XX SCH (09:20)
[2021-09-01] MEDS ORDERED: ATROPINE SULF 1MG/10ML SYRINGE (J0461) IV PRN (09:35)
[2021-09-01] MEDS ORDERED: hydrALAZINE 20MG/ML 1ML VIAL (J0360 PER 20MG) IV PRN (09:35)
[2021-09-01 10:01] LABS: INR 0.93; PROTHROMBIN TIME 12.9 SECONDS (12.7-14.5)
[2021-09-01] MEDS ORDERED: NS 500 ML IV ONE (11:30)
[2021-09-01] MEDS ORDERED: ISOVUE-300 61% 50ML VIAL As Ordered ONE (12:13)
[2021-09-01] MEDS ORDERED: VANCOMYCIN 1000MG/20ML VIAL As Ordered ONE (12:13)
[2021-09-01] MEDS ORDERED: LIDOCAINE 1% SDV 30ML VIAL As Ordered ONE (12:13)
[2021-09-01] MEDS ORDERED: ceFAZolin SOD 2 GM in IV 1 EA IV ONE (12:30)
[2021-09-01] MEDS ORDERED: ceFAZolin 2 GM/D5W 50 ML IV BAG (J0690 PER 500MG) As Ordered ONE (12:56)
[2021-09-01] MEDS ORDERED: MIDAZOLAM INJ 2MG/2ML VIAL (J2250 PER 1MG) As Ordered ONE (13:00)
[2021-09-01] MEDS ORDERED: propofoL 500 MG/50 ML VIAL As Ordered ONE (13:00)
[2021-09-01] MEDS ORDERED: fentaNYL 100 MCG/2 ML INJECTION As Ordered ONE (13:00)
[2021-09-01] MEDS ORDERED: propofoL 200 MG/20 ML VIAL As Ordered ONE (14:03)
[2021-09-01] MEDS ORDERED: ceFAZolin 2 GM/D5W 50 ML IV BAG (J0690 PER 500MG) ONE (15:00)
[2021-09-01] MEDS ORDERED: MUPIROCIN 2% OINT 22 GM TUBE ONE (15:00)
[2021-09-01] MEDS ORDERED: MUPIROCIN 2% OINT 22 GM TUBE As Ordered ONE (15:04)
[2021-09-01] MEDS ORDERED: ONDANSETRON 4MG/2ML VIAL IV PRN (15:30)
[2021-09-01] MEDS ORDERED: fentaNYL 100 MCG/2 ML INJECTION IV PRN (15:30)
[2021-09-01] MEDS ORDERED: ACETAMINOPHEN TAB 650MG DOSE (2X325MG) PO PRN (15:30)
[2021-09-01] MEDS ORDERED: ALPRAZolam 0.25 MG TAB PO PRN (17:20)
[2021-09-01] MEDS ORDERED: ALBUTEROL 90 MCG/ACT 8GM HFA INHALER INH PRN (17:20)
[2021-09-01] MEDS ORDERED: cloNIDine 0.1MG TABLET PO ONE (18:00)
[2021-09-01] MEDS: ADVAIR HFA 45/21MCG INHALER INH SCH (20:35)
[2021-09-01] MEDS ORDERED: MIRTAZAPINE 15 MG TAB PO SCH (21:00)
[2021-09-01] MEDS ORDERED: carisoprodoL 350 MG TAB PO SCH (21:00)
[2021-09-01] MEDS: ASCORBIC ACID 250 MG TAB PO SCH (22:21)
[2021-09-01] MEDS: PANTOPRAZOLE 40MG TAB (PROTONIX) PO SCH (22:22)
[2021-09-01] MEDS: FUROSEMIDE 80 MG TAB PO SCH (22:22)
[2021-09-02] VITALS: BP 101/54
[2021-09-02 04:00] VITALS: BP 132/63
[2021-09-02] MEDS: ACETAMINOPHEN TAB 650MG DOSE (2X325MG) PO PRN ×2 (05:16→08:18)
[2021-09-02] MEDS: ADVAIR HFA 45/21MCG INHALER INH SCH (07:27)
[2021-09-02 08:00] VITALS: BP 159/74
[2021-09-02 08:17] VITALS: BP 159/74
[2021-09-02] MEDS: ASCORBIC ACID 250 MG TAB PO SCH (08:17)
[2021-09-02] MEDS: PANTOPRAZOLE 40MG TAB (PROTONIX) PO SCH (08:17)
[2021-09-02] MEDS: FUROSEMIDE 80 MG TAB PO SCH (08:20)
[2021-09-02] MEDS ORDERED: PARoxetine 10MG TABLET PO SCH (09:00)
[2021-09-02] MEDS ORDERED: OCUVITE 1 TAB PO SCH (09:00)
[2021-09-02] MEDS ORDERED: PRAVASTATIN 20 MG TAB PO SCH (09:00)
[2021-09-02] MEDS ORDERED: allopurinoL 100 MG TAB PO SCH (09:00)
[2021-09-02 12:00] VITALS: BP 125/60
== END 2021-09-02 17:42 | disposition home health service (06) | DRG 243 ==
LOC: M ED 05:54 → M ED INP 08:20 → ENRESERV 09:25 → M PCU 10:57
PROVIDERS: ADMIT General Practice; ATTEND General Practice
PROC: 02H63JZ Insertion of Pacemaker Lead into Right Atrium, Percutaneous Approach (ICD-10-PCS; 2021-09-01)
PROC: 02HK3JZ Insertion of Pacemaker Lead into Right Ventricle, Percutaneous Approach (ICD-10-PCS; 2021-09-01)
PROC: 0JH636Z Insertion of Pacemaker, Dual Chamber into Chest Subcutaneous Tissue and Fascia, Percutaneous Approach (ICD-10-PCS; principal; 2021-09-01 10:19)
DX: I44.2 Atrioventricular block, complete (principal); I50.32 Chronic diastolic (congestive) heart failure; D68.2 Hereditary deficiency of other clotting factors; E78.00 Pure hypercholesterolemia, unspecified; I11.0 Hypertensive heart disease with heart failure; D86.0 Sarcoidosis of lung; M51.26 Other intervertebral disc displacement, lumbar region; M48.061 Spinal stenosis, lumbar region without neurogenic claudication; I16.0 Hypertensive urgency; J45.909 Unspecified asthma, uncomplicated; Z86.718 Personal history of other venous thrombosis and embolism; Z90.49 Acquired absence of other specified parts of digestive tract; Z96.652 Presence of left artificial knee joint; Z79.891 Long term (current) use of opiate analgesic; Z79.899 Other long term (current) drug therapy; Z96.1 Presence of intraocular lens; Z88.5 Allergy status to narcotic agent

== ENCOUNTER → 2021-09-11 | Outpatient (REF) | payer BC ==
[~2021-09-11] MED LIST changes: +ADVA45AE INH
[2021-09-11 14:38] LABS: HEMATOCRIT 37.9 % (36.0-47.0); HEMOGLOBIN 11.7 g/dl (12.0-15.5); MEAN CORPUSCULAR HEMOGLOBIN 27.2 pg (27.0-33.0); MEAN CORPUSCULAR HGB CONC 30.9 g/dl (32.0-36.5); MEAN CORPUSCULAR VOLUME 88.1 fl (80.0-96.0); PLATELET COUNT, AUTOMATED 192 10^3/uL (150-450)
[2021-09-11 16:08] LABS: ALBUMIN 3.8 GM/DL (3.2-5.2); ALT/SGPT 21 U/L (12-78); BILIRUBIN,TOTAL 0.3 MG/DL (0.2-1.0); BLOOD UREA NITROGEN 23 MG/DL (7-18); CALCIUM LEVEL 9.5 MG/DL (8.8-10.2); CARBON DIOXIDE LEVEL 34 MEQ/L (21-32); CHLORIDE LEVEL 106 MEQ/L (98-107); CHOLESTEROL LEVEL 202 MG/DL (<200); CHOLESTEROL RISK RATIO 2.927 (<5); FREE T4 0.87 NG/DL (0.76-1.46); GLOMERULAR FILTRATION RATE > 60.0 (>32); GLUCOSE, FASTING 90 MG/DL (70-100); HDL CHOLESTEROL 69 MG/DL (>40); LDL CHOLESTEROL 115 MG/DL (<100); NON-HDL-C 133 MG/DL; POTASSIUM SERUM 4.2 MEQ/L (3.5-5.1); SODIUM LEVEL 142 MEQ/L (136-145); TOTAL 25(OH) VITAMIN D 70.6 NG/ML (30.0-100.0); TOTAL PROTEIN 7.3 GM/DL (6.4-8.2); TRIGLYCERIDES LEVEL 90 MG/DL (<150)
== END ==
LOC: M SFHCADAM 09:23
PROVIDERS: ATTEND Family Medicine
DX: D68.51 Activated protein C resistance (principal); I82.432 Acute embolism and thrombosis of left popliteal vein; I10 Essential (primary) hypertension; E04.2 Nontoxic multinodular goiter; E78.5 Hyperlipidemia, unspecified; E55.9 Vitamin D deficiency, unspecified

== ENCOUNTER → 2021-10-04 | Outpatient (CLI) | payer BC | LOC: M RAD 12:22 | PROVIDERS: ATTEND Family Medicine | DX: E04.1 Nontoxic single thyroid nodule (principal) ==

== ENCOUNTER → 2021-10-30 | Outpatient (REF) | payer BC ==
[2021-10-30 13:27] LABS: FREE T4 0.81 NG/DL (0.76-1.46); THYROID STIMULATING HORMONE 2.42 uIU/ML (0.358-3.740)
== END ==
LOC: M SFHCADAM 08:51
PROVIDERS: ATTEND Family Medicine
DX: E03.8 Other specified hypothyroidism (principal)

== ENCOUNTER → 2022-03-14 | Outpatient (CLI) | payer BC ==
[2022-03-14 17:33] LABS: HEMATOCRIT 36.7 % (36.0-47.0); HEMOGLOBIN 11.1 g/dl (12.0-15.5); MEAN CORPUSCULAR HEMOGLOBIN 26.3 pg (27.0-33.0); MEAN CORPUSCULAR HGB CONC 30.2 g/dl (32.0-36.5); PLATELET COUNT, AUTOMATED 188 10^3/uL (150-450); RED BLOOD COUNT 4.22 10^6/uL (4.00-5.40); WHITE BLOOD COUNT 8.1 10^3/uL (4.0-10.0)
[2022-03-14 18:45] LABS: ALBUMIN 3.2 GM/DL (3.2-5.2); BILIRUBIN,TOTAL 0.2 MG/DL (0.2-1.0); CHOLESTEROL RISK RATIO 3.017 (<5); CREATININE FOR GFR 1.04 MG/DL (0.55-1.30); FREE T4 0.94 NG/DL (0.76-1.46); GLOMERULAR FILTRATION RATE 53.9 (>32); POTASSIUM SERUM 4.1 MEQ/L (3.5-5.1); THYROID STIMULATING HORMONE 2.19 uIU/ML (0.358-3.740); TOTAL PROTEIN 6.9 GM/DL (6.4-8.2)
== END ==
LOC: M PLALAB 14:10
PROVIDERS: ATTEND Family Medicine
DX: I50.30 Unspecified diastolic (congestive) heart failure (principal); E03.8 Other specified hypothyroidism; E78.5 Hyperlipidemia, unspecified

== ENCOUNTER → 2022-03-21 | Outpatient (REF) | payer BC ==
[2022-03-21 13:01] LABS: BLOOD UREA NITROGEN 19 MG/DL (7-18); CALCIUM LEVEL 9.6 MG/DL (8.8-10.2); CARBON DIOXIDE LEVEL 35 MEQ/L (21-32); CHLORIDE LEVEL 100 MEQ/L (98-107); CREATININE FOR GFR 0.88 MG/DL (0.55-1.30); GLOMERULAR FILTRATION RATE > 60.0 (>32); GLUCOSE, FASTING 110 MG/DL (70-100); NT-PRO BNP 737 PG/ML (<450); POTASSIUM SERUM 3.3 MEQ/L (3.5-5.1); SODIUM LEVEL 140 MEQ/L (136-145)
== END ==
LOC: M SFHCADAM 10:29
PROVIDERS: ATTEND Physician Assistant
DX: I50.30 Unspecified diastolic (congestive) heart failure (principal)

== ENCOUNTER 2022-05-18 01:36 | Inpatient (IN) | payer MEDICARE, BC ==
[~2022-05-18] VITALS: Ht 152.4 cm; Wt 87.2 kg
[2022-05-18] MEDS ORDERED: NS 1,000 ML IV ONE (02:15)
[2022-05-18 02:31] LABS: BASO % 0.2 % (0.0-1.0); EOS # 0.1 10^3/uL (0.0-0.5); EOS % 0.7 % (0.0-3.0); HEMATOCRIT 40.7 % (36.0-47.0); HEMOGLOBIN 12.8 g/dl (12.0-15.5); LYMPH # 1.4 10^3/uL (1.5-5.0); LYMPH % 6.7 % (24.0-44.0); MEAN CORPUSCULAR HEMOGLOBIN 26.6 pg (27.0-33.0); MEAN CORPUSCULAR HGB CONC 31.4 g/dl (32.0-36.5); MEAN CORPUSCULAR VOLUME 84.6 fl (80.0-96.0); MONO # 1.2 10^3/uL (0.0-0.8); NEUTROPHILS # 17.8 10^3/uL (1.5-8.5); NEUTROPHILS % 85.9 % (36.0-66.0); PLATELET COUNT, AUTOMATED 254 10^3/uL (150-450); RED BLOOD COUNT 4.81 10^6/uL (4.00-5.40); WHITE BLOOD COUNT 20.7 10^3/uL (4.0-10.0)
[2022-05-18] MEDS ORDERED: ONDANSETRON 4MG 2ML VIAL IV ONE (03:00)
[2022-05-18 03:29] LABS: CK-MB VALUE MASS 1.9 NG/ML (<3.6); MB/CK RELATIVE INDEX 2.32 (< OR =4)
[2022-05-18 03:38] LABS: BILIRUBIN,TOTAL 0.4 MG/DL (0.2-1.0); CALCIUM LEVEL 9.7 MG/DL (8.8-10.2); CREATININE FOR GFR 1.11 MG/DL (0.55-1.30); MAGNESIUM LEVEL 2.4 MG/DL (1.8-2.4); POTASSIUM SERUM 4.4 MEQ/L (3.5-5.1); TOTAL PROTEIN 7.9 GM/DL (6.4-8.2)
[2022-05-18] MEDS ORDERED: ISOVUE-370 76% 100ML VIAL As Ordered ONE (04:04)
[2022-05-18] MEDS ORDERED: PIPERACILLIN/TAZOBACTAM SOD 3.375 GM in D5W MINI-BAG PLUS 50 ML IV ONE (06:20)
[2022-05-18] MEDS ORDERED: POTA-151 PO (06:51)
[2022-05-18] MEDS ORDERED: HOME MED LIST COMPLETE! XX SCH (06:55)
[2022-05-18 07:19] LABS: MB/CK RELATIVE INDEX 3.39 (< OR =4)
[2022-05-18] MEDS: LR 1,000 ML IV SCH ×3 (10:21→20:05)
[2022-05-18] MEDS ORDERED: ONDANSETRON 4MG 2ML VIAL IV PRN (11:35)
[2022-05-18] MEDS ORDERED: ALPRAZolam 0.25 MG TAB PO PRN (11:40)
[2022-05-18] MEDS ORDERED: ALBUTEROL 90 MCG/ACT 8GM HFA INHALER INH PRN (11:40)
[2022-05-18] MEDS: HEPARIN SOD (PORCINE) 5000UNITS/ML 1ML VIAL/SYRINGE SC SCH ×2 (14:27→23:18)
[2022-05-18] MEDS: allopurinoL 100 MG TAB PO SCH (14:29)
[2022-05-18] MEDS: PRAVASTATIN 20 MG TAB PO SCH (14:29)
[2022-05-18] MEDS: PIPERACILLIN/TAZOBACTAM SOD 3.375 GM in D5W MINI-BAG PLUS 50 ML IV SCH ×2 (14:33→20:05)
[2022-05-18 16:00] VITALS: BP 142/59
[2022-05-18] MEDS: PARoxetine 10MG TABLET PO SCH (16:57)
[2022-05-18] MEDS: ADVAIR HFA 45/21MCG INHALER INH SCH (18:14)
[2022-05-18] MEDS: carisoprodoL 350 MG TAB PO SCH (20:05)
[2022-05-18] MEDS: MIRTAZAPINE 15 MG TAB PO SCH (20:05)
[2022-05-18] MEDS: ALPRAZolam 0.25 MG TAB PO SCH (20:06)
[2022-05-18] MEDS: PANTOPRAZOLE 40MG TAB (PROTONIX) PO SCH (20:06)
[2022-05-18 20:45] VITALS: BP 117/51
[2022-05-19] MEDS: PIPERACILLIN/TAZOBACTAM SOD 3.375 GM in D5W MINI-BAG PLUS 50 ML IV SCH ×2 (02:57→07:43)
[2022-05-19] MEDS: ALPRAZolam 0.25 MG TAB PO SCH (04:39)
[2022-05-19 06:00] VITALS: BP_SYST 113; BP_SYST 136; BP_DIAS 50; BP_DIAS 91
[2022-05-19 06:33] LABS: HEMATOCRIT 30.5 % (36.0-47.0); MEAN CORPUSCULAR HEMOGLOBIN 26.6 pg (27.0-33.0); MEAN CORPUSCULAR HGB CONC 30.2 g/dl (32.0-36.5); MEAN CORPUSCULAR VOLUME 88.2 fl (80.0-96.0); PLATELET COUNT, AUTOMATED 164 10^3/uL (150-450); RED BLOOD COUNT 3.46 10^6/uL (4.00-5.40); WHITE BLOOD COUNT 5.6 10^3/uL (4.0-10.0)
[2022-05-19 06:34] LABS: HEMOGLOBIN 9.2 g/dl (12.0-15.5)
[2022-05-19] MEDS: HEPARIN SOD (PORCINE) 5000UNITS/ML 1ML VIAL/SYRINGE SC SCH ×3 (06:51→22:38)
[2022-05-19 07:13] LABS: BLOOD UREA NITROGEN 26 MG/DL (7-18); CALCIUM LEVEL 8.9 MG/DL (8.8-10.2); CARBON DIOXIDE LEVEL 31 MEQ/L (21-32); CHLORIDE LEVEL 108 MEQ/L (98-107); CREATININE FOR GFR 0.88 MG/DL (0.55-1.30); GLOMERULAR FILTRATION RATE > 60.0 (>32); GLUCOSE, FASTING 99 MG/DL (70-100); POTASSIUM SERUM 3.4 MEQ/L (3.5-5.1); SODIUM LEVEL 141 MEQ/L (136-145)
[2022-05-19] MEDS ORDERED: POTASSIUM CHLORIDE 10MEQ SR TABLET PO ONE (07:25)
[2022-05-19 07:51] LABS: BASO % 0.3 % (0.0-1.0); EOS # 0.1 10^3/uL (0.0-0.5); EOS % 1.6 % (0.0-3.0); HEMATOCRIT 33.3 % (36.0-47.0); HEMOGLOBIN 9.7 g/dl (12.0-15.5); LYMPH # 1.2 10^3/uL (1.5-5.0); LYMPH % 20.2 % (24.0-44.0); MEAN CORPUSCULAR HGB CONC 29.1 g/dl (32.0-36.5); MEAN CORPUSCULAR VOLUME 89.3 fl (80.0-96.0); MONO # 0.3 10^3/uL (0.0-0.8); MONO % 5.7 % (2.0-8.0); NEUTROPHILS # 4.2 10^3/uL (1.5-8.5); NEUTROPHILS % 71.9 % (36.0-66.0); PLATELET COUNT, AUTOMATED 163 10^3/uL (150-450); RED BLOOD COUNT 3.73 10^6/uL (4.00-5.40); WHITE BLOOD COUNT 5.8 10^3/uL (4.0-10.0)
[2022-05-19] MEDS: PARoxetine 10MG TABLET PO SCH (08:04)
[2022-05-19] MEDS: PRAVASTATIN 20 MG TAB PO SCH (08:05)
[2022-05-19] MEDS: PANTOPRAZOLE 40MG TAB (PROTONIX) PO SCH ×2 (08:05→22:39)
[2022-05-19] MEDS: allopurinoL 100 MG TAB PO SCH (08:05)
[2022-05-19] MEDS: ADVAIR HFA 45/21MCG INHALER INH SCH ×2 (09:13→20:47)
[2022-05-19] MEDS: POTASSIUM CHLORIDE 10MEQ SR TABLET PO SCH (09:57)
[2022-05-19] MEDS: FUROSEMIDE 80 MG TAB PO SCH ×2 (09:57→22:39)
[2022-05-19 14:00] VITALS: BP 108/54
[2022-05-19] MEDS ORDERED: ACETAMINOPHEN TAB 650MG DOSE (2X325MG) PO PRN (19:00)
[2022-05-19 21:05] VITALS: BP 137/64
[2022-05-19] MEDS: carisoprodoL 350 MG TAB PO SCH (22:39)
[2022-05-19] MEDS: MIRTAZAPINE 15 MG TAB PO SCH (22:40)
[2022-05-19] MEDS ORDERED: ALPRAZolam 0.25 MG TAB PO ONE (23:35)
[2022-05-20 05:25] VITALS: BP 139/69
[2022-05-20] MEDS: HEPARIN SOD (PORCINE) 5000UNITS/ML 1ML VIAL/SYRINGE SC SCH (05:39)
[2022-05-20] MEDS: ADVAIR HFA 45/21MCG INHALER INH SCH (06:09)
[2022-05-20] MEDS ORDERED: POTASSIUM CHLORIDE 10MEQ SR TABLET PO ONE (07:10)
[2022-05-20 07:15] LABS: BASO % 0.3 % (0.0-1.0); EOS # 0.2 10^3/uL (0.0-0.5); EOS % 2.6 % (0.0-3.0); LYMPH # 1.7 10^3/uL (1.5-5.0); LYMPH % 27.9 % (24.0-44.0); MEAN CORPUSCULAR HGB CONC 29.4 g/dl (32.0-36.5); MEAN CORPUSCULAR VOLUME 88.5 fl (80.0-96.0); MONO # 0.4 10^3/uL (0.0-0.8); NEUTROPHILS # 3.8 10^3/uL (1.5-8.5); NEUTROPHILS % 61.9 % (36.0-66.0); PLATELET COUNT, AUTOMATED 172 10^3/uL (150-450); RED BLOOD COUNT 3.84 10^6/uL (4.00-5.40); WHITE BLOOD COUNT 6.2 10^3/uL (4.0-10.0)
[2022-05-20 07:35] VITALS: BP 112/62
[2022-05-20 08:17] LABS: BLOOD UREA NITROGEN 24 MG/DL (7-18); CALCIUM LEVEL 8.9 MG/DL (8.8-10.2); CARBON DIOXIDE LEVEL 31 MEQ/L (21-32); CHLORIDE LEVEL 105 MEQ/L (98-107); GLOMERULAR FILTRATION RATE > 60.0 (>32); GLUCOSE, FASTING 93 MG/DL (70-100); POTASSIUM SERUM 3.7 MEQ/L (3.5-5.1); SODIUM LEVEL 143 MEQ/L (136-145)
[2022-05-20] MEDS: PRAVASTATIN 20 MG TAB PO SCH (09:34)
[2022-05-20 09:35] VITALS: BP 112/62
[2022-05-20] MEDS: allopurinoL 100 MG TAB PO SCH (09:36)
[2022-05-20] MEDS: FUROSEMIDE 80 MG TAB PO SCH (09:36)
[2022-05-20] MEDS: PARoxetine 10MG TABLET PO SCH (09:37)
[2022-05-20] MEDS: PANTOPRAZOLE 40MG TAB (PROTONIX) PO SCH (09:37)
[2022-05-20] MEDS: POTASSIUM CHLORIDE 10MEQ SR TABLET PO SCH (09:38)
== END 2022-05-20 11:53 | disposition home health service (06) | DRG 392 ==
LOC: M ED 01:36 → M ED INP 07:56 → ENRESERV 13:32 → M MSPAV 15:55
PROVIDERS: ADMIT Internal Medicine; ATTEND Internal Medicine
DX: A08.4 Viral intestinal infection, unspecified (principal); I50.32 Chronic diastolic (congestive) heart failure; I44.2 Atrioventricular block, complete; D68.51 Activated protein C resistance; I11.0 Hypertensive heart disease with heart failure; I49.5 Sick sinus syndrome; I27.20 Pulmonary hypertension, unspecified; K21.9 Gastro-esophageal reflux disease without esophagitis; F32.A Depression, unspecified; M54.9 Dorsalgia, unspecified; F41.9 Anxiety disorder, unspecified; E03.9 Hypothyroidism, unspecified; G89.29 Other chronic pain; K64.9 Unspecified hemorrhoids; D72.829 Elevated white blood cell count, unspecified; E86.0 Dehydration; M10.9 Gout, unspecified; J45.909 Unspecified asthma, uncomplicated; E87.6 Hypokalemia; E78.5 Hyperlipidemia, unspecified; Z95.0 Presence of cardiac pacemaker; Z86.718 Personal history of other venous thrombosis and embolism; Z90.49 Acquired absence of other specified parts of digestive tract; Z96.652 Presence of left artificial knee joint; Z79.899 Other long term (current) drug therapy; Z88.5 Allergy status to narcotic agent

== ENCOUNTER → 2022-05-21 | Outpatient (REF) | payer MEDICARE, BC ==
[~2022-05-21] MED LIST changes: +POTA-151 PO
[2022-05-21 18:51] LABS: BLOOD UREA NITROGEN 23 MG/DL (7-18); CALCIUM LEVEL 9.6 MG/DL (8.8-10.2); CARBON DIOXIDE LEVEL 33 MEQ/L (21-32); CHLORIDE LEVEL 100 MEQ/L (98-107); CREATININE FOR GFR 0.87 MG/DL (0.55-1.30); GLOMERULAR FILTRATION RATE > 60.0 (>32); GLUCOSE, FASTING 95 MG/DL (70-100); POTASSIUM SERUM 4.7 MEQ/L (3.5-5.1); SODIUM LEVEL 142 MEQ/L (136-145)
== END ==
LOC: M LABDRWAD 17:23
PROVIDERS: ATTEND Nurse Practitioner Family
DX: Z79.899 Other long term (current) drug therapy (principal)

== ENCOUNTER → 2022-08-20 | Outpatient (REF) | payer BC ==
[2022-08-20 15:16] LABS: HEMATOCRIT 38.6 % (36.0-47.0); HEMOGLOBIN 11.8 g/dl (12.0-15.5); MEAN CORPUSCULAR HEMOGLOBIN 26.4 pg (27.0-33.0); MEAN CORPUSCULAR HGB CONC 30.6 g/dl (32.0-36.5); MEAN CORPUSCULAR VOLUME 86.4 fl (80.0-96.0); PLATELET COUNT, AUTOMATED 210 10^3/uL (150-450); RED BLOOD COUNT 4.47 10^6/uL (4.00-5.40); WHITE BLOOD COUNT 6.4 10^3/uL (4.0-10.0)
[2022-08-20 16:04] LABS: ALBUMIN 4.2 G/DL (3.2-5.2); BILIRUBIN,TOTAL 0.4 MG/DL (0.3-1.2); CALCIUM LEVEL 9.4 MG/DL (8.3-10.6); CREATININE FOR GFR 0.97 MG/DL (0.55-1.30); GLOMERULAR FILTRATION RATE 58.4 (>32); TOTAL PROTEIN 7.4 G/DL (5.7-8.2)
== END ==
LOC: M SFHCADAM 12:07
PROVIDERS: ATTEND Family Medicine
DX: J06.9 Acute upper respiratory infection, unspecified (principal); R05.3 Chronic cough; I50.30 Unspecified diastolic (congestive) heart failure

== ENCOUNTER → 2022-08-20 | Outpatient (CLI) | payer BC | LOC: M ADAMS 12:16 | PROVIDERS: ATTEND Family Medicine | DX: J98.11 Atelectasis (principal); J06.9 Acute upper respiratory infection, unspecified; D86.2 Sarcoidosis of lung with sarcoidosis of lymph nodes; Z95.0 Presence of cardiac pacemaker ==

== ENCOUNTER 2022-12-09 12:10 | Emergency (ER) | payer BC ==
[~2022-12-09] VITALS: Ht 152.4 cm; Wt 78.7 kg
[2022-12-09] MEDS ORDERED: LOSA50TA28 (12:24)
[2022-12-09] MEDS ORDERED: TRAM37.53 (12:24)
[2022-12-09 15:05] LABS: BASO % 0.3 % (0.0-1.0); EOS # 0.1 10^3/uL (0.0-0.5); EOS % 1.6 % (0.0-3.0); HEMATOCRIT 38.5 % (36.0-47.0); HEMOGLOBIN 11.7 g/dl (12.0-15.5); LYMPH % 14.4 % (24.0-44.0); MEAN CORPUSCULAR HEMOGLOBIN 25.3 pg (27.0-33.0); MEAN CORPUSCULAR HGB CONC 30.4 g/dl (32.0-36.5); MEAN CORPUSCULAR VOLUME 83.2 fl (80.0-96.0); MONO # 0.4 10^3/uL (0.0-0.8); MONO % 5.5 % (2.0-8.0); NEUTROPHILS # 5.4 10^3/uL (1.5-8.5); NEUTROPHILS % 77.8 % (36.0-66.0); PLATELET COUNT, AUTOMATED 245 10^3/uL (150-450); RED BLOOD COUNT 4.63 10^6/uL (4.00-5.40); WHITE BLOOD COUNT 6.9 10^3/uL (4.0-10.0)
[2022-12-09 15:32] LABS: ALBUMIN 3.3 G/DL (3.2-5.2); ALKALINE PHOSPHATASE 111 U/L (46-116); ALT/SGPT 16 U/L (7.0-40); AST/SGOT 16 U/L (<34); BILIRUBIN,DIRECT 0.1 MG/DL (<0.4); BILIRUBIN,TOTAL 0.3 MG/DL (0.3-1.2); BLOOD UREA NITROGEN 12 MG/DL (9-23); CALCIUM LEVEL 8.6 MG/DL (8.3-10.6); CARBON DIOXIDE LEVEL 35 MMOL/L (20-31); CHLORIDE LEVEL 102 MMOL/L (98-107); CREATININE FOR GFR 0.68 MG/DL (0.55-1.30); GLOMERULAR FILTRATION RATE > 60.0 (>32); GLUCOSE, FASTING 96 MG/DL (74-106); POTASSIUM SERUM 3.6 MMOL/L (3.5-5.1); SODIUM LEVEL 145 MMOL/L (136-145); TOTAL PROTEIN 6.4 G/DL (5.7-8.2)
[2022-12-09] MEDS ORDERED: ISOVUE-370 76% 100ML VIAL As Ordered ONE (16:34)
[2022-12-09 18:15] VITALS: BP 140/70
[2022-12-09 18:28] VITALS: O2SAT 93
[2022-12-09] MEDS ORDERED: ONDA4TAB6 PO (18:31)
[2022-12-09] MEDS ORDERED: PRED20TA PO (18:31)
== END 2022-12-09 18:47 | disposition home or self-care (01) ==
LOC: M ED 12:10
DX: U07.1 COVID-19 (principal); R06.02 Shortness of breath; I10 Essential (primary) hypertension; D86.9 Sarcoidosis, unspecified; Z88.5 Allergy status to narcotic agent; Z95.0 Presence of cardiac pacemaker; Z79.899 Other long term (current) drug therapy; Z79.51 Long term (current) use of inhaled steroids
CPT/HCPCS: 36415; 71045; 71275; 80047; 80048; 80076; 85025; 85379; 87486; 87581; 87633; 87798; 99284; Q9967

== ENCOUNTER → 2023-02-04 | Outpatient (REF) | payer BC ==
[~2023-02-04] MED LIST changes: +LOSA50TA28; +ONDA4TAB6 PO; +PRED20TA PO; +TRAM37.53
[2023-02-04 13:30] LABS: BASO % 0.5 % (0.0-1.0); EOS # 0.2 10^3/uL (0.0-0.5); EOS % 2.5 % (0.0-3.0); HEMATOCRIT 38.9 % (36.0-47.0); HEMOGLOBIN 11.4 g/dl (12.0-15.5); LYMPH # 1.5 10^3/uL (1.5-5.0); LYMPH % 23.1 % (24.0-44.0); MEAN CORPUSCULAR HEMOGLOBIN 24.4 pg (27.0-33.0); MEAN CORPUSCULAR HGB CONC 29.3 g/dl (32.0-36.5); MEAN CORPUSCULAR VOLUME 83.1 fl (80.0-96.0); MONO # 0.5 10^3/uL (0.0-0.8); NEUTROPHILS # 4.3 10^3/uL (1.5-8.5); NEUTROPHILS % 66.6 % (36.0-66.0); PLATELET COUNT, AUTOMATED 241 10^3/uL (150-450); RED BLOOD COUNT 4.68 10^6/uL (4.00-5.40); WHITE BLOOD COUNT 6.5 10^3/uL (4.0-10.0)
[2023-02-04 14:08] LABS: ALBUMIN 3.8 G/DL (3.2-5.2); ALKALINE PHOSPHATASE 141 U/L (46-116); ALT/SGPT 13 U/L (7.0-40); AST/SGOT 9 U/L (<34); BILIRUBIN,TOTAL 0.5 MG/DL (0.3-1.2); BLOOD UREA NITROGEN 23 MG/DL (9-23); CALCIUM LEVEL 9.7 MG/DL (8.3-10.6); CARBON DIOXIDE LEVEL 34 MMOL/L (20-31); CHLORIDE LEVEL 100 MMOL/L (98-107); CHOLESTEROL LEVEL 182 MG/DL (<200); CHOLESTEROL RISK RATIO 2.71 (<5); CREATININE FOR GFR 0.78 MG/DL (0.55-1.30); FREE T4 1.06 NG/DL (0.89-1.76); GLOMERULAR FILTRATION RATE > 60.0 (>32); GLUCOSE, FASTING 93 MG/DL (74-106); HDL CHOLESTEROL 67.1 MG/DL (>40); LDL CHOLESTEROL 89.5 MG/DL (<100); NON-HDL-C 114.9 MG/DL; POTASSIUM SERUM 4.6 MMOL/L (3.5-5.1); SODIUM LEVEL 143 MMOL/L (136-145); THYROID STIMULATING HORMONE 2.359 uIU/ML (0.55-4.78); TOTAL PROTEIN 7.3 G/DL (5.7-8.2); TRIGLYCERIDES LEVEL 127 MG/DL (<150)
== END ==
LOC: M SFHCADAM 11:25
PROVIDERS: ATTEND Family Medicine
DX: I11.9 Hypertensive heart disease without heart failure (principal); I50.30 Unspecified diastolic (congestive) heart failure; E03.8 Other specified hypothyroidism; E78.5 Hyperlipidemia, unspecified

== ENCOUNTER → 2023-02-24 | Outpatient (REF) | payer BC ==
[2023-02-24 17:38] LABS: BLOOD UREA NITROGEN 22 MG/DL (9-23); CALCIUM LEVEL 9.3 MG/DL (8.3-10.6); CARBON DIOXIDE LEVEL 36 MMOL/L (20-31); CHLORIDE LEVEL 101 MMOL/L (98-107); CREATININE FOR GFR 0.79 MG/DL (0.55-1.30); GLOMERULAR FILTRATION RATE > 60.0 (>32); GLUCOSE, FASTING 96 MG/DL (74-106); POTASSIUM SERUM 4.1 MMOL/L (3.5-5.1); SODIUM LEVEL 143 MMOL/L (136-145)
[2023-02-24 17:41] LABS: FREE T4 0.97 NG/DL (0.89-1.76)
== END ==
LOC: M SFHCADAM 15:07
PROVIDERS: ATTEND Family Medicine
DX: R60.9 Edema, unspecified (principal); R09.81 Nasal congestion

== ENCOUNTER → 2023-03-30 | Outpatient (CLI) | payer BC ==
[~2023-03-30] MED LIST changes: -MIRT-62 PO; +MIRT-88 PO
== END ==
LOC: M CARPUL 13:10
PROVIDERS: ATTEND Family Medicine
DX: R60.9 Edema, unspecified (principal)

== ENCOUNTER → 2023-06-30 | Outpatient (REF) | payer BC ==
[~2023-06-30] MED LIST changes: +ADV500INH INH; +FERR325T3 PO; -LOSA50TA28; +LOSA50TA28 PO; +PRED50TA PO; -TRAM37.53
[2023-06-30 13:13] LABS: HEMATOCRIT 37.7 % (36.0-47.0); HEMOGLOBIN 11.5 g/dl (12.0-15.5); MEAN CORPUSCULAR HEMOGLOBIN 26.3 pg (27.0-33.0); MEAN CORPUSCULAR HGB CONC 30.5 g/dl (32.0-36.5); MEAN CORPUSCULAR VOLUME 86.1 fl (80.0-96.0); PLATELET COUNT, AUTOMATED 172 10^3/uL (150-450); RED BLOOD COUNT 4.38 10^6/uL (4.00-5.40); WHITE BLOOD COUNT 5.2 10^3/uL (4.0-10.0)
[2023-06-30 13:34] LABS: ALBUMIN 3.7 G/DL (3.2-5.2); ALKALINE PHOSPHATASE 147 U/L (46-116); ALT/SGPT 13 U/L (7.0-40); AST/SGOT 12 U/L (<34); BILIRUBIN,TOTAL 0.4 MG/DL (0.3-1.2); BLOOD UREA NITROGEN 17 MG/DL (9-23); CALCIUM LEVEL 8.9 MG/DL (8.3-10.6); CARBON DIOXIDE LEVEL 32 MMOL/L (20-31); CHLORIDE LEVEL 103 MMOL/L (98-107); CREATININE FOR GFR 0.72 MG/DL (0.55-1.30); GLOMERULAR FILTRATION RATE > 60.0 (>32); GLUCOSE, FASTING 99 MG/DL (74-106); POTASSIUM SERUM 3.4 MMOL/L (3.5-5.1); SODIUM LEVEL 141 MMOL/L (136-145); TOTAL IRON BINDING CAPACITY 294 UG/DL (250-425); TOTAL PROTEIN 6.4 G/DL (5.7-8.2)
[2023-06-30 13:35] LABS: FERRITIN 91.9 NG/ML (7.3-270.7); IRON (FE) 47 UG/DL (50-170)
== END ==
LOC: M SFHCADAM 09:46
PROVIDERS: ATTEND Family Medicine
DX: D86.2 Sarcoidosis of lung with sarcoidosis of lymph nodes (principal); R60.0 Localized edema; D50.9 Iron deficiency anemia, unspecified

== ENCOUNTER → 2023-07-15 | Outpatient (REF) | payer BC ==
[2023-07-15 17:17] LABS: BASO % 0.7 % (0.0-1.0); EOS # 0.2 10^3/uL (0.0-0.5); HEMATOCRIT 40.8 % (36.0-47.0); HEMOGLOBIN 12.3 g/dl (12.0-15.5); LYMPH % 18.1 % (24.0-44.0); MEAN CORPUSCULAR HEMOGLOBIN 26.7 pg (27.0-33.0); MEAN CORPUSCULAR HGB CONC 30.1 g/dl (32.0-36.5); MEAN CORPUSCULAR VOLUME 88.5 fl (80.0-96.0); MONO # 0.4 10^3/uL (0.0-0.8); MONO % 6.9 % (2.0-8.0); NEUTROPHILS % 70.8 % (36.0-66.0); PLATELET COUNT, AUTOMATED 208 10^3/uL (150-450); RED BLOOD COUNT 4.61 10^6/uL (4.00-5.40); WHITE BLOOD COUNT 5.7 10^3/uL (4.0-10.0)
[2023-07-15 19:23] LABS: BLOOD UREA NITROGEN 27 MG/DL (9-23); CALCIUM LEVEL 9.4 MG/DL (8.3-10.6); CARBON DIOXIDE LEVEL 32 MMOL/L (20-31); CHLORIDE LEVEL 101 MMOL/L (98-107); CREATININE FOR GFR 0.72 MG/DL (0.55-1.30); GLOMERULAR FILTRATION RATE > 60.0 (>32); GLUCOSE, FASTING 83 MG/DL (74-106); POTASSIUM SERUM 5.7 MMOL/L (3.5-5.1); SODIUM LEVEL 139 MMOL/L (136-145)
== END ==
LOC: M SFHCADAM 11:46
PROVIDERS: ATTEND Family Medicine
DX: R60.0 Localized edema (principal); I27.20 Pulmonary hypertension, unspecified

== ENCOUNTER → 2023-08-06 | Outpatient (CLI) | payer BC | LOC: M WUC 10:17 | PROVIDERS: ATTEND Student in an Organized Health Care Education/Training Program | DX: M19.031 Primary osteoarthritis, right wrist (principal) ==

== ENCOUNTER → 2023-08-12 | Outpatient (REF) | payer BC ==
[2023-08-12 15:19] LABS: HEMATOCRIT 40.7 % (36.0-47.0); HEMOGLOBIN 12.5 g/dl (12.0-15.5); MEAN CORPUSCULAR HEMOGLOBIN 27.9 pg (27.0-33.0); MEAN CORPUSCULAR HGB CONC 30.7 g/dl (32.0-36.5); MEAN CORPUSCULAR VOLUME 90.8 fl (80.0-96.0); PLATELET COUNT, AUTOMATED 216 10^3/uL (150-450); RED BLOOD COUNT 4.48 10^6/uL (4.00-5.40); WHITE BLOOD COUNT 5.6 10^3/uL (4.0-10.0)
[2023-08-12 15:46] LABS: BLOOD UREA NITROGEN 22 MG/DL (9-23); CARBON DIOXIDE LEVEL 34 MMOL/L (20-31); CHLORIDE LEVEL 101 MMOL/L (98-107); CREATININE FOR GFR 0.72 MG/DL (0.55-1.30); GLOMERULAR FILTRATION RATE > 60.0 (>32); GLUCOSE, FASTING 97 MG/DL (74-106); POTASSIUM SERUM 3.4 MMOL/L (3.5-5.1); SODIUM LEVEL 141 MMOL/L (136-145)
[2023-08-12 15:47] LABS: FERRITIN 58.3 NG/ML (7.3-270.7)
== END ==
LOC: M SFHCADAM 10:06
PROVIDERS: ATTEND Family Medicine
DX: R60.0 Localized edema (principal); I27.20 Pulmonary hypertension, unspecified; D50.9 Iron deficiency anemia, unspecified

== ENCOUNTER → 2023-10-30 | Outpatient (REF) | payer BC ==
[2023-10-30 13:42] LABS: HEMATOCRIT 40.2 % (36.0-47.0); HEMOGLOBIN 12.5 g/dl (12.0-15.5); MEAN CORPUSCULAR HEMOGLOBIN 30.3 pg (27.0-33.0); MEAN CORPUSCULAR HGB CONC 31.1 g/dl (32.0-36.5); MEAN CORPUSCULAR VOLUME 97.6 fl (80.0-96.0); PLATELET COUNT, AUTOMATED 189 10^3/uL (150-450); RED BLOOD COUNT 4.12 10^6/uL (4.00-5.40); WHITE BLOOD COUNT 5.9 10^3/uL (4.0-10.0)
[2023-10-30 14:54] LABS: ALBUMIN 3.7 G/DL (3.2-5.2); ALKALINE PHOSPHATASE 142 U/L (46-116); ALT/SGPT 21 U/L (7.0-40); AST/SGOT 15 U/L (<34); BILIRUBIN,TOTAL 0.5 MG/DL (0.3-1.2); BLOOD UREA NITROGEN 29 MG/DL (9-23); CALCIUM LEVEL 9.5 MG/DL (8.3-10.6); CARBON DIOXIDE LEVEL 35 MMOL/L (20-31); CHLORIDE LEVEL 100 MMOL/L (98-107); GLOMERULAR FILTRATION RATE > 60.0 (>32); GLUCOSE, FASTING 88 MG/DL (74-106); POTASSIUM SERUM 3.9 MMOL/L (3.5-5.1); SODIUM LEVEL 142 MMOL/L (136-145); TOTAL PROTEIN 6.9 G/DL (5.7-8.2)
== END ==
LOC: M SFHCADAM 10:24
PROVIDERS: ATTEND Family Medicine
DX: I11.9 Hypertensive heart disease without heart failure (principal); R60.0 Localized edema

== ENCOUNTER 2023-11-24 03:56 | Emergency (ER) | payer BC ==
[~2023-11-24] VITALS: Ht 152.4 cm; Wt 80.9 kg
[2023-11-24] MEDS: ONDANSETRON 4MG 2ML VIAL IV ONE (04:23)
[2023-11-24 04:31] LABS: BASO % 0.4 % (0.0-1.0); EOS # 0.1 10^3/uL (0.0-0.5); EOS % 1.3 % (0.0-3.0); HEMATOCRIT 40.2 % (36.0-47.0); HEMOGLOBIN 12.8 g/dl (12.0-15.5); LYMPH # 1.1 10^3/uL (1.5-5.0); LYMPH % 15.2 % (24.0-44.0); MEAN CORPUSCULAR HGB CONC 31.8 g/dl (32.0-36.5); MEAN CORPUSCULAR VOLUME 94.4 fl (80.0-96.0); MONO # 0.4 10^3/uL (0.0-0.8); MONO % 5.6 % (2.0-8.0); NEUTROPHILS # 5.3 10^3/uL (1.5-8.5); NEUTROPHILS % 77.1 % (36.0-66.0); PLATELET COUNT, AUTOMATED 190 10^3/uL (150-450); RED BLOOD COUNT 4.26 10^6/uL (4.00-5.40); WHITE BLOOD COUNT 6.9 10^3/uL (4.0-10.0)
[2023-11-24 04:43] LABS: INR 1.01; PARTIAL THROMBOPLASTIN TIME 30.7 SECONDS (24.8-34.2)
[2023-11-24] MEDS: NS 1,000 ML IV ONE (05:09)
[2023-11-24] MEDS: METOCLOPRAMIDE INJ 10MG/2ML VIAL IV ONE (05:09)
[2023-11-24 06:16] LABS: CK-MB VALUE MASS 1.8 NG/ML (<3.6); LIPASE 30 U/L (12-53)
[2023-11-24 06:18] LABS: AMYLASE 51 U/L (30-118)
[2023-11-24 06:19] LABS: ALBUMIN 3.7 G/DL (3.2-5.2); ALKALINE PHOSPHATASE 150 U/L (46-116); ALT/SGPT 16 U/L (7.0-40); AST/SGOT 17 U/L (<34); BILIRUBIN,DIRECT 0.1 MG/DL (<0.4); BILIRUBIN,TOTAL 0.4 MG/DL (0.3-1.2); BLOOD UREA NITROGEN 28 MG/DL (9-23); CALCIUM LEVEL 9.3 MG/DL (8.3-10.6); CARBON DIOXIDE LEVEL 30 MMOL/L (20-31); CHLORIDE LEVEL 103 MMOL/L (98-107); CPK CREATINE PHOSPHOKINASE 81 U/L (34-145); CREATININE FOR GFR 0.78 MG/DL (0.55-1.30); GLOMERULAR FILTRATION RATE > 60.0 (>32); GLUCOSE, FASTING 152 MG/DL (74-106); MB/CK RELATIVE INDEX 2.22 (< OR =4); POTASSIUM SERUM 3.7 MMOL/L (3.5-5.1); SODIUM LEVEL 143 MMOL/L (136-145); TOTAL PROTEIN 7.1 G/DL (5.7-8.2)
[2023-11-24] MEDS ORDERED: ONDA4TAB6 PO (09:29)
[2023-11-24 09:56] VITALS: BP 161/76; TEMP 97.8; O2SAT 100
[2023-11-24] MEDS: ONDANSETRON 4MG ORAL DISINTEGRATING TAB PO ONE (10:07)
== END 2023-11-24 10:51 | disposition home or self-care (01) ==
LOC: M ED 03:56 → EDBD 03:56 → EDSEX 03:56 → M ED 10:51
DX: R10.9 Unspecified abdominal pain (principal); R11.2 Nausea with vomiting, unspecified; I49.8 Other specified cardiac arrhythmias; I10 Essential (primary) hypertension; E78.5 Hyperlipidemia, unspecified; D50.9 Iron deficiency anemia, unspecified; Z88.8 Allergy status to other drugs, medicaments and biological substances; Z79.51 Long term (current) use of inhaled steroids; Z79.52 Long term (current) use of systemic steroids; Z79.899 Other long term (current) drug therapy
CPT/HCPCS: 71045; 80047; 80048; 80076; 82150; 82550; 82553; 83605; 83690; 84484; 85025; 85610; 85730; 87040; 93005; 93041; 96374; 96375; 99285; J2405; J2765

== ENCOUNTER → 2024-01-26 | Outpatient (REF) | payer BC ==
[~2024-01-26] MED LIST changes: +ONDA-282 PO; -ONDA4TAB6 PO; +TRAM-443 PO; -TRAM37.53 PO
[2024-01-26 16:16] LABS: CALCIUM LEVEL 9.3 MG/DL (8.3-10.6); CREATININE FOR GFR 1.81 MG/DL (0.55-1.30); GLOMERULAR FILTRATION RATE 28.3 (>32); MAGNESIUM LEVEL 2.3 MG/DL (1.8-2.4); POTASSIUM SERUM 2.9 MMOL/L (3.5-5.1)
== END ==
LOC: M SFHCADAM 08:24
PROVIDERS: ATTEND Family Medicine
DX: R60.0 Localized edema (principal); I50.33 Acute on chronic diastolic (congestive) heart failure

== ENCOUNTER → 2024-02-01 | Outpatient (CLI) | payer BC ==
[2024-02-01 15:31] LABS: CALCIUM LEVEL 9.9 MG/DL (8.3-10.6); CREATININE FOR GFR 1.03 MG/DL (0.55-1.30); GLOMERULAR FILTRATION RATE 54.2 (>32); POTASSIUM SERUM 4.1 MMOL/L (3.5-5.1)
== END ==
LOC: M WUC 10:26
PROVIDERS: ATTEND Physician Assistant
DX: R60.0 Localized edema (principal); E87.6 Hypokalemia

== ENCOUNTER → 2024-02-16 | Outpatient (REF) | payer BC ==
[~2024-02-16] MED LIST changes: -TRAM-443 PO; +TRAM1TAB42 PO
[2024-02-16 13:28] LABS: HEMATOCRIT 39.5 % (36.0-47.0); HEMOGLOBIN 12.5 g/dl (12.0-15.5); MEAN CORPUSCULAR HGB CONC 31.6 g/dl (32.0-36.5); PLATELET COUNT, AUTOMATED 221 10^3/uL (150-450); RED BLOOD COUNT 4.16 10^6/uL (4.00-5.40); WHITE BLOOD COUNT 7.2 10^3/uL (4.0-10.0)
[2024-02-16 13:35] LABS: ALBUMIN 3.9 G/DL (3.2-5.2); ALKALINE PHOSPHATASE 123 U/L (46-116); ALT/SGPT 30 U/L (7.0-40); AST/SGOT 23 U/L (<34); BILIRUBIN,TOTAL 0.5 MG/DL (0.3-1.2); BLOOD UREA NITROGEN 120 MG/DL (9-23); CALCIUM LEVEL 9.5 MG/DL (8.3-10.6); CARBON DIOXIDE LEVEL > 40.0 MMOL/L (20-31); CHLORIDE LEVEL 89 MMOL/L (98-107); CHOLESTEROL LEVEL 212 MG/DL (<200); CHOLESTEROL RISK RATIO 3.53 (<5); CREATININE FOR GFR 1.52 MG/DL (0.55-1.30); FREE T4 1.11 NG/DL (0.89-1.76); GLOMERULAR FILTRATION RATE 34.6 (>32); GLUCOSE, FASTING 109 MG/DL (74-106); POTASSIUM SERUM 3.8 MMOL/L (3.5-5.1); SODIUM LEVEL 134 MMOL/L (136-145); THYROID STIMULATING HORMONE 10.019 uIU/ML (0.55-4.78); TOTAL PROTEIN 7.2 G/DL (5.7-8.2); TRIGLYCERIDES LEVEL 140 MG/DL (<150)
== END ==
LOC: M SFHCADAM 07:39
PROVIDERS: ATTEND Physician Assistant
DX: I11.9 Hypertensive heart disease without heart failure (principal); E87.6 Hypokalemia; E78.5 Hyperlipidemia, unspecified; E03.8 Other specified hypothyroidism; I50.33 Acute on chronic diastolic (congestive) heart failure

== ENCOUNTER → 2024-02-22 | Outpatient (REF) | payer BC ==
[2024-02-22 13:54] LABS: CALCIUM LEVEL 9.7 MG/DL (8.3-10.6); CREATININE FOR GFR 1.37 MG/DL (0.55-1.30); MAGNESIUM LEVEL 2.2 MG/DL (1.8-2.4); POTASSIUM SERUM 3.7 MMOL/L (3.5-5.1)
== END ==
LOC: M SFHCADAM 09:00
PROVIDERS: ATTEND Physician Assistant
DX: I50.33 Acute on chronic diastolic (congestive) heart failure (principal); E87.6 Hypokalemia; I11.9 Hypertensive heart disease without heart failure

== ENCOUNTER → 2024-03-03 | Outpatient (CLI) | payer BC | LOC: M PLAIMG 13:20 | PROVIDERS: ATTEND Internal Medicine Pulmonary Disease | DX: I27.29 Other secondary pulmonary hypertension (principal); I08.1 Rheumatic disorders of both mitral and tricuspid valves ==

== ENCOUNTER → 2024-03-04 | Outpatient (CLI) | payer BC | LOC: M ADAMS 11:14 | PROVIDERS: ATTEND Physician Assistant | DX: I11.9 Hypertensive heart disease without heart failure (principal); E03.8 Other specified hypothyroidism; I50.33 Acute on chronic diastolic (congestive) heart failure; E87.6 Hypokalemia; R41.0 Disorientation, unspecified; Z95.0 Presence of cardiac pacemaker; I70.0 Atherosclerosis of aorta; J98.11 Atelectasis ==

== ENCOUNTER → 2024-03-04 | Outpatient (REF) | payer BC ==
[2024-03-04 19:01] LABS: BASO % 0.4 % (0.0-1.0); EOS % 0.5 % (0.0-3.0); HEMATOCRIT 39.4 % (36.0-47.0); HEMOGLOBIN 12.3 g/dl (12.0-15.5); LYMPH % 12.7 % (24.0-44.0); MEAN CORPUSCULAR HEMOGLOBIN 30.1 pg (27.0-33.0); MEAN CORPUSCULAR HGB CONC 31.2 g/dl (32.0-36.5); MEAN CORPUSCULAR VOLUME 96.6 fl (80.0-96.0); MONO # 0.5 10^3/uL (0.0-0.8); MONO % 6.3 % (2.0-8.0); NEUTROPHILS # 6.4 10^3/uL (1.5-8.5); NEUTROPHILS % 79.6 % (36.0-66.0); PLATELET COUNT, AUTOMATED 263 10^3/uL (150-450); RED BLOOD COUNT 4.08 10^6/uL (4.00-5.40); WHITE BLOOD COUNT 8.1 10^3/uL (4.0-10.0)
[2024-03-04 19:02] LABS: APPEARANCE, URINE HAZY (CLEAR); BACTERIA, URINE AUTO NEGATIVE (NEGATIVE); BILIRUBIN, URINE AUTO NEGATIVE (NEGATIVE); BLOOD, URINE BLOOD 1+ (NEGATIVE); COLOR, URINE YELLOW (YELLOW); GLUCOSE, URINE (UA) AUTO NEGATIVE (NEGATIVE); KETONE, URINE AUTO TRACE mg/dL (NEGATIVE); LEUKOCYTE ESTERASE, URINE AUTO 2+ (NEGATIVE); NITRITE, URINE AUTO NEGATIVE (NEGATIVE); PROTEIN, URINE AUTO 1+ mg/dL (NEGATIVE); RBC, URINE AUTO 2 /HPF (0-3); SPECIFIC GRAVITY URINE AUTO 1.015 (1.002-1.035); SQUAMOUS EPITHELIAL CELL UR AU 7 /HPF (0-6); UROBILINOGEN, URINE AUTO 0.2 mg/dL (0.0-2.0); WBC, URINE AUTO 8 /HPF (0-3)
[2024-03-04 19:22] LABS: BLOOD UREA NITROGEN 25 MG/DL (9-23); CALCIUM LEVEL 9.7 MG/DL (8.3-10.6); CARBON DIOXIDE LEVEL 33 MMOL/L (20-31); CHLORIDE LEVEL 104 MMOL/L (98-107); CREATININE FOR GFR 0.67 MG/DL (0.55-1.30); GLOMERULAR FILTRATION RATE > 60.0 (>32); GLUCOSE, FASTING 77 MG/DL (74-106); POTASSIUM SERUM 3.8 MMOL/L (3.5-5.1); SODIUM LEVEL 142 MMOL/L (136-145)
[2024-03-04 19:25] LABS: FREE T4 1.77 NG/DL (0.89-1.76); THYROID STIMULATING HORMONE 1.288 uIU/ML (0.55-4.78)
== END ==
LOC: M SFHCADAM 11:12
PROVIDERS: ATTEND Physician Assistant
DX: I11.9 Hypertensive heart disease without heart failure (principal); E03.8 Other specified hypothyroidism; I50.33 Acute on chronic diastolic (congestive) heart failure; E87.6 Hypokalemia; R41.0 Disorientation, unspecified

== ENCOUNTER → 2024-03-15 | Outpatient (REF) | payer BC | LOC: M SFHCADAM 11:35 | PROVIDERS: ATTEND Family Medicine | DX: I11.0 Hypertensive heart disease with heart failure (principal); I27.29 Other secondary pulmonary hypertension; I50.33 Acute on chronic diastolic (congestive) heart failure ==

== ENCOUNTER → 2024-04-12 | Outpatient (REF) | payer BC ==
[2024-04-12 13:54] LABS: HEMATOCRIT 39.5 % (36.0-47.0); HEMOGLOBIN 12.4 g/dl (12.0-15.5); MEAN CORPUSCULAR HEMOGLOBIN 29.7 pg (27.0-33.0); MEAN CORPUSCULAR HGB CONC 31.4 g/dl (32.0-36.5); MEAN CORPUSCULAR VOLUME 94.7 fl (80.0-96.0); PLATELET COUNT, AUTOMATED 191 10^3/uL (150-450); RED BLOOD COUNT 4.17 10^6/uL (4.00-5.40); WHITE BLOOD COUNT 8.7 10^3/uL (4.0-10.0)
[2024-04-12 14:19] LABS: CALCIUM LEVEL 9.2 MG/DL (8.3-10.6); CREATININE FOR GFR 1.21 MG/DL (0.55-1.30); FREE T4 1.29 NG/DL (0.89-1.76); POTASSIUM SERUM 3.7 MMOL/L (3.5-5.1); THYROID STIMULATING HORMONE 3.322 uIU/ML (0.55-4.78)
== END ==
LOC: M SFHCADAM 10:28
PROVIDERS: ATTEND Family Medicine
DX: E03.8 Other specified hypothyroidism (principal)

== ENCOUNTER → 2024-06-06 | Outpatient (CLI) | payer BC ==
[2024-06-06 11:08] LABS: HEMATOCRIT 40.8 % (36.0-47.0); HEMOGLOBIN 13.4 g/dl (12.0-15.5); MEAN CORPUSCULAR HEMOGLOBIN 30.4 pg (27.0-33.0); MEAN CORPUSCULAR HGB CONC 32.8 g/dl (32.0-36.5); MEAN CORPUSCULAR VOLUME 92.5 fl (80.0-96.0); PLATELET COUNT, AUTOMATED 256 10^3/uL (150-450); RED BLOOD COUNT 4.41 10^6/uL (4.00-5.40); WHITE BLOOD COUNT 9.3 10^3/uL (4.0-10.0)
[2024-06-06 11:22] LABS: ALBUMIN 3.9 G/DL (3.2-5.2); BILIRUBIN,TOTAL 0.5 MG/DL (0.3-1.2); CREATININE FOR GFR 1.3 MG/DL (0.55-1.30); GLOMERULAR FILTRATION RATE 41.4 (>32); POTASSIUM SERUM 3.6 MMOL/L (3.5-5.1); TOTAL PROTEIN 7.7 G/DL (5.7-8.2)
== END ==
LOC: M WUC 08:50
PROVIDERS: ATTEND Family Medicine
DX: I11.0 Hypertensive heart disease with heart failure (principal); I27.20 Pulmonary hypertension, unspecified; I50.9 Heart failure, unspecified

== ENCOUNTER → 2024-06-23 | Outpatient (CLI) | payer BC ==
[~2024-06-23] MED LIST changes: -ADV250INH INH; +ADVA1AER9 INH
== END ==
LOC: M PLAIMG 12:58
PROVIDERS: ATTEND Family Medicine
DX: R11.0 Nausea (principal); N28.1 Cyst of kidney, acquired; J98.11 Atelectasis; K57.30 Diverticulosis of large intestine without perforation or abscess without bleeding; M85.89 Other specified disorders of bone density and structure, multiple sites

== ENCOUNTER → 2024-07-28 | Outpatient (CLI) | payer BC ==
[~2024-07-28] MED LIST changes: -ADV500INH INH; +ADVA1AER10 INH
== END ==
LOC: M RAD 10:29
PROVIDERS: ATTEND Family Medicine
DX: E04.2 Nontoxic multinodular goiter (principal)

== ENCOUNTER → 2024-09-14 | Outpatient (REF) | payer BC ==
[~2024-09-14] MED LIST changes: +CARI-555 PO; -CARI1TAB7 PO
[2024-09-14 14:22] LABS: HEMATOCRIT 42.7 % (36.0-47.0); HEMOGLOBIN 12.9 g/dl (12.0-15.5); MEAN CORPUSCULAR HEMOGLOBIN 29.3 pg (27.0-33.0); MEAN CORPUSCULAR HGB CONC 30.2 g/dl (32.0-36.5); PLATELET COUNT, AUTOMATED 200 10^3/uL (150-450); WHITE BLOOD COUNT 6.2 10^3/uL (4.0-10.0)
[2024-09-14 14:27] LABS: ALBUMIN 3.7 G/DL (3.2-5.2); ALKALINE PHOSPHATASE 131 U/L (35-104); ALT/SGPT 22 U/L (7.0-40); AST/SGOT 18 U/L (<34); BILIRUBIN,TOTAL 0.5 MG/DL (0.3-1.2); BLOOD UREA NITROGEN 34 MG/DL (9-23); CALCIUM LEVEL 9.3 MG/DL (8.3-10.6); CARBON DIOXIDE LEVEL 36 MMOL/L (20-31); CHLORIDE LEVEL 99 MMOL/L (98-107); CREATININE FOR GFR 0.86 MG/DL (0.55-1.30); GLOMERULAR FILTRATION RATE > 60.0 (>32); GLUCOSE, FASTING 91 MG/DL (74-106); POTASSIUM SERUM 3.7 MMOL/L (3.5-5.1); SODIUM LEVEL 141 MMOL/L (136-145); TOTAL PROTEIN 7.5 G/DL (5.7-8.2)
[2024-09-14 14:29] LABS: FREE T4 1.03 NG/DL (0.89-1.76); THYROID STIMULATING HORMONE 4.933 uIU/ML (0.55-4.78)
== END ==
LOC: M SFHCADAM 08:58
PROVIDERS: ATTEND Family Medicine
DX: E04.2 Nontoxic multinodular goiter (principal); I27.29 Other secondary pulmonary hypertension; I50.30 Unspecified diastolic (congestive) heart failure; I11.0 Hypertensive heart disease with heart failure; M10.9 Gout, unspecified

== ENCOUNTER → 2024-11-23 | Outpatient (REF) | payer BC ==
[~2024-11-23] MED LIST changes: -PRED50TA PO; +PRED50TA57 PO
[2024-11-23 14:43] LABS: HEMATOCRIT 41.3 % (36.0-47.0); HEMOGLOBIN 12.7 g/dl (12.0-15.5); MEAN CORPUSCULAR HEMOGLOBIN 29.1 pg (27.0-33.0); MEAN CORPUSCULAR HGB CONC 30.8 g/dl (32.0-36.5); MEAN CORPUSCULAR VOLUME 94.5 fl (80.0-96.0); PLATELET COUNT, AUTOMATED 215 10^3/uL (150-450); RED BLOOD COUNT 4.37 10^6/uL (4.00-5.40); WHITE BLOOD COUNT 8.1 10^3/uL (4.0-10.0)
[2024-11-23 15:14] LABS: URIC ACID 4.6 MG/DL (3.1-7.8)
[2024-11-23 15:17] LABS: ALBUMIN 4.1 G/DL (3.2-5.2); BILIRUBIN,TOTAL 0.5 MG/DL (0.3-1.2); CALCIUM LEVEL 9.6 MG/DL (8.3-10.6); GLOMERULAR FILTRATION RATE 54.9 (>32); POTASSIUM SERUM 3.9 MMOL/L (3.5-5.1); TOTAL PROTEIN 7.5 G/DL (5.7-8.2)
== END ==
LOC: M SFHCADAM 10:31
PROVIDERS: ATTEND Family Medicine
DX: I50.30 Unspecified diastolic (congestive) heart failure (principal); I27.29 Other secondary pulmonary hypertension; M10.9 Gout, unspecified

== ENCOUNTER → 2024-11-23 | Outpatient (CLI) | payer BC | LOC: M ADAMS 10:58 | PROVIDERS: ATTEND Family Medicine | DX: I50.30 Unspecified diastolic (congestive) heart failure (principal); I27.29 Other secondary pulmonary hypertension; I11.0 Hypertensive heart disease with heart failure ==

== ENCOUNTER 2025-01-19 10:41 | Inpatient (IN) | payer BC ==
[~2025-01-19] VITALS: Ht 152.4 cm; Wt 81.9 kg
[~2025-01-19 10:41] MED LIST changes: -PRAV20TA2 PO; +PRAV20TA78 PO; -PRAV40TA2 PO; +PRAV40TA85 PO
[2025-01-19] MEDS ORDERED: BUME2TAB3 PO (11:36)
[2025-01-19] MEDS ORDERED: MIRT1TAB PO (11:36)
[2025-01-19] MEDS ORDERED: SPIR-10 PO (11:36)
[2025-01-19 12:32] LABS: BASO # 0.0 10^3/uL (0.0-0.2); BASO % 0.5 % (0.0-1.0); EOS # 0.1 10^3/uL (0.0-0.5); EOS % 1.0 % (0.0-3.0); LYMPH # 0.8 10^3/uL (1.5-5.0); LYMPH % 9.8 % (24.0-44.0); MONO # 0.4 10^3/uL (0.0-0.8); MONO % 5.4 % (2.0-8.0); NEUTROPHILS # 6.4 10^3/uL (1.5-8.5); NEUTROPHILS % 83.0 % (36.0-66.0); PLATELET COUNT, AUTOMATED 227 10^3/uL (150-450)
[2025-01-19 12:48] LABS: ERYTHROCYTE SEDIMENTATION RATE 57 mm/hr (0-30)
[2025-01-19 13:02] LABS: C REACTIVE PROTEIN QUANTITATIV < 0.50 MG/DL (<1.0); CALCIUM LEVEL 9.4 MG/DL (8.3-10.6); CARBON DIOXIDE LEVEL 29 MMOL/L (20-31); CHLORIDE LEVEL 105 MMOL/L (98-107); CREATININE FOR GFR 0.89 MG/DL (0.55-1.30); GLOMERULAR FILTRATION RATE 63.1 (>32); POTASSIUM SERUM 4.3 MMOL/L (3.5-5.1); SODIUM LEVEL 144 MMOL/L (136-145)
[2025-01-19] MEDS: FUROSEMIDE 100 MG/10 ML VIAL IV ONE (13:45)
[2025-01-19 13:55] LABS: VENOUS BASE EXCESS 2.6 (-2.0-2.0); VENOUS HCO3 30.7 MMOL/L (23.0-27.0); VENOUS O2 SATURATION 58.4 % (60.0-80.0); VENOUS PARTIAL PRESSURE CO2 64.1 mmHg (38.0-50.0); VENOUS PARTIAL PRESSURE O2 31.8 mmHg (30.0-50.0); VENOUS PH 7.298 UNITS (7.330-7.430); VENOUS STANDARD HCO3 25.8 MMOL/L; VENOUS TOTAL CO2 32.7 MMOL/L (24.0-28.0)
[2025-01-19] MEDS ORDERED: SYNT25TA PO (15:16)
[2025-01-19] MEDS ORDERED: HOME MED LIST COMPLETE! XX SCH (15:20)
[2025-01-19 15:39] LABS: CK-MB VALUE MASS 2.3 NG/ML (<3.6)
[2025-01-19 15:40] LABS: CPK CREATINE PHOSPHOKINASE 43 U/L (34-145); MB/CK RELATIVE INDEX 5.34 (< OR =4)
[2025-01-19] MEDS ORDERED: MOM 30 ML SUSPENSION UDC PO PRN (16:00)
[2025-01-19] MEDS ORDERED: MAALOX 30 ML SUSP *UDC PO PRN (16:00)
[2025-01-19] MEDS ORDERED: ALBUTEROL 90 MCG/ACT 8 GM HFA INHALER INH PRN (16:00)
[2025-01-19] MEDS: FUROSEMIDE 100 MG/10 ML VIAL IV SCH (16:56)
[2025-01-19] MEDS: ADVAIR HFA 45/21 MCG INHALER INH SCH (20:13)
[2025-01-19 21:13] VITALS: BP 160/66; TEMP 97.5; O2SAT 97
[2025-01-19] MEDS: DOCUSATE SODIUM 100 MG CAPSULE PO SCH (21:33)
[2025-01-19] MEDS: MIRTAZAPINE 7.5 MG PER 1/2 TABLET PO SCH (21:33)
[2025-01-19] MEDS: MIRTAZAPINE 15 MG TAB PO SCH (21:33)
[2025-01-19] MEDS: PANTOPRAZOLE 40MG TAB PO SCH (21:33)
[2025-01-19] MEDS: ULTRACET TAB PO SCH (21:33)
[2025-01-19 23:21] VITALS: BP 157/68; TEMP 97.8; O2SAT 97
[2025-01-20 03:59] VITALS: BP 148/70; TEMP 98.1; O2SAT 97
[2025-01-20] MEDS: ACETAMINOPHEN 325 MG TAB PO PRN (04:14)
[2025-01-20] MEDS: ONDANSETRON 4MG 2ML VIAL IV ONE (04:26)
[2025-01-20 04:29] LABS: BASO # 0.0 10^3/uL (0.0-0.2); BASO % 0.7 % (0.0-1.0); EOS # 0.2 10^3/uL (0.0-0.5); EOS % 2.6 % (0.0-3.0); LYMPH # 1.1 10^3/uL (1.5-5.0); LYMPH % 18.7 % (24.0-44.0); MONO # 0.5 10^3/uL (0.0-0.8); MONO % 7.8 % (2.0-8.0); NEUTROPHILS # 4.0 10^3/uL (1.5-8.5); NEUTROPHILS % 70.0 % (36.0-66.0); PLATELET COUNT, AUTOMATED 211 10^3/uL (150-450)
[2025-01-20 04:56] LABS: CALCIUM LEVEL 8.7 MG/DL (8.3-10.6); CARBON DIOXIDE LEVEL 32.0 MMOL/L (20-31); CHLORIDE LEVEL 107.0 MMOL/L (98-107); CREATININE FOR GFR 0.93 MG/DL (0.55-1.30); GLOMERULAR FILTRATION RATE 59.9 (>32); MAGNESIUM LEVEL 2.2 MG/DL (1.8-2.4); POTASSIUM SERUM 4.1 MMOL/L (3.5-5.1); SODIUM LEVEL 148.0 MMOL/L (136-145)
[2025-01-20] MEDS: LEVOTHYROXINE 25 MCG TABLET (0.025MG) PO SCH (06:25)
[2025-01-20 08:25] VITALS: BP 144/67; TEMP 97.2; O2SAT 97
[2025-01-20] MEDS: ENOXAPARIN 40 MG/0.4 ML SYRINGE (J1650 PER 10MG) SC SCH (08:29)
[2025-01-20] MEDS: PARoxetine 10MG TABLET PO SCH (08:30)
[2025-01-20] MEDS: POTASSIUM CHLORIDE 10MEQ SR TABLET PO SCH (08:30)
[2025-01-20] MEDS: LOSARTAN 50 MG TABLET PO SCH (08:31)
[2025-01-20] MEDS: PRAVASTATIN 20 MG TAB PO SCH (08:32)
[2025-01-20] MEDS: SPIRONOLACTONE 25 MG TAB PO SCH (08:32)
[2025-01-20 12:43] VITALS: BP 117/56; TEMP 97.8; O2SAT 93
[2025-01-20 16:02] VITALS: BP 116/56; TEMP 98.7; O2SAT 96
[2025-01-20] MEDS: NYSTATIN 100,000 UNITS/GM TOPICAL PWD 15GM TOP SCH (20:14)
[2025-01-20 21:12] VITALS: BP 109/51; TEMP 97.7; O2SAT 94
[2025-01-20] MEDS: ONDANSETRON 4MG 2ML VIAL IV PRN (22:22)
[2025-01-20 23:44] VITALS: BP 133/60; TEMP 96.8; O2SAT 95
[2025-01-21 03:58] VITALS: BP 155/70; TEMP 97; O2SAT 95
[2025-01-21 06:14] LABS: BASO # 0.0 10^3/uL (0.0-0.2); BASO % 0.8 % (0.0-1.0); EOS # 0.1 10^3/uL (0.0-0.5); EOS % 2.5 % (0.0-3.0); LYMPH # 0.9 10^3/uL (1.5-5.0); LYMPH % 17.0 % (24.0-44.0); MONO # 0.3 10^3/uL (0.0-0.8); MONO % 6.7 % (2.0-8.0); NEUTROPHILS # 3.7 10^3/uL (1.5-8.5); NEUTROPHILS % 72.8 % (36.0-66.0); PLATELET COUNT, AUTOMATED 194 10^3/uL (150-450)
[2025-01-21 06:49] LABS: CALCIUM LEVEL 8.9 MG/DL (8.3-10.6); CARBON DIOXIDE LEVEL 32.0 MMOL/L (20-31); CHLORIDE LEVEL 104.0 MMOL/L (98-107); CREATININE FOR GFR 0.91 MG/DL (0.55-1.30); GLOMERULAR FILTRATION RATE 61.4 (>32); MAGNESIUM LEVEL 2.0 MG/DL (1.8-2.4); POTASSIUM SERUM 4.0 MMOL/L (3.5-5.1); SODIUM LEVEL 145.0 MMOL/L (136-145)
[2025-01-21 07:30] VITALS: BP 128/65; TEMP 97; O2SAT 98
[2025-01-21 08:42] VITALS: BP 128/65
[2025-01-21] MEDS ORDERED: FURO80TA2 PO (11:59)
[2025-01-21] MEDS ORDERED: NYST10006 TOP (12:00)
[2025-01-21 12:09] VITALS: BP 110/70; TEMP 97.5; O2SAT 95
[2025-01-21 13:45] VITALS: O2SAT 93
[2025-01-21] MEDS ORDERED: LOSA25TA13 PO (14:08)
[2025-01-21] MEDS ORDERED: METO1TAB87 PO (14:08)
[2025-01-21] MEDS ORDERED: ASPI81CH33 PO (14:42)
== END 2025-01-21 15:29 | disposition home or self-care (01) | DRG 194 ==
LOC: M ED 10:41 → M ED INP 15:57 → M PCU 20:57
PROVIDERS: ADMIT Internal Medicine; ATTEND Internal Medicine
PROC: B246ZZZ Ultrasonography of Right and Left Heart (ICD-10-PCS; principal; 2025-01-21)
DX: I11.0 Hypertensive heart disease with heart failure (principal); E87.0 Hyperosmolality and hypernatremia; I27.20 Pulmonary hypertension, unspecified; D68.51 Activated protein C resistance; D86.0 Sarcoidosis of lung; D64.9 Anemia, unspecified; Z66 Do not resuscitate; E04.2 Nontoxic multinodular goiter; E03.9 Hypothyroidism, unspecified; K21.9 Gastro-esophageal reflux disease without esophagitis; E78.5 Hyperlipidemia, unspecified; M10.9 Gout, unspecified; F32.A Depression, unspecified; D35.00 Benign neoplasm of unspecified adrenal gland; L30.4 Erythema intertrigo; M54.9 Dorsalgia, unspecified; G89.29 Other chronic pain; Z90.49 Acquired absence of other specified parts of digestive tract; Z90.79 Acquired absence of other genital organ(s); Z79.890 Hormone replacement therapy; Z79.899 Other long term (current) drug therapy; Z88.5 Allergy status to narcotic agent; Z95.0 Presence of cardiac pacemaker; Z86.718 Personal history of other venous thrombosis and embolism; I50.33 Acute on chronic diastolic (congestive) heart failure

== ENCOUNTER → 2025-01-26 | Outpatient (REF) | payer BC ==
[~2025-01-26] MED LIST changes: +ASPI81CH33 PO; +BUME2TAB3 PO; +LOSA25TA13 PO; +METO1TAB87 PO; +MIRT1TAB PO; +NYST10006 TOP; +SYNT25TA PO
[2025-01-26 16:12] LABS: CALCIUM LEVEL 9.3 MG/DL (8.3-10.6); CARBON DIOXIDE LEVEL 32.0 MMOL/L (20-31); CHLORIDE LEVEL 99.0 MMOL/L (98-107); CREATININE FOR GFR 1.39 MG/DL (0.55-1.30); GLOMERULAR FILTRATION RATE 37.0 (>32); POTASSIUM SERUM 4.5 MMOL/L (3.5-5.1); SODIUM LEVEL 144.0 MMOL/L (136-145)
[2025-01-26 16:15] LABS: FREE T4 1.12 NG/DL (0.89-1.76)
== END ==
LOC: M SFHCADAM 10:17
PROVIDERS: ATTEND Physician Assistant
DX: E03.8 Other specified hypothyroidism (principal)

== ENCOUNTER → 2025-02-02 | Outpatient (CLI) | payer BC | LOC: M ADAMS 10:50 | PROVIDERS: ATTEND Physician Assistant | DX: I50.33 Acute on chronic diastolic (congestive) heart failure (principal); I11.0 Hypertensive heart disease with heart failure ==

== ENCOUNTER → 2025-02-02 | Outpatient (REF) | payer BC ==
[2025-02-02 14:10] LABS: CALCIUM LEVEL 9.3 MG/DL (8.3-10.6); CARBON DIOXIDE LEVEL 35.0 MMOL/L (20-31); CHLORIDE LEVEL 98.0 MMOL/L (98-107); CREATININE FOR GFR 1.05 MG/DL (0.55-1.30); GLOMERULAR FILTRATION RATE 51.8 (>32); POTASSIUM SERUM 5.7 MMOL/L (3.5-5.1); SODIUM LEVEL 142.0 MMOL/L (136-145)
== END ==
LOC: M SFHCADAM 10:48
PROVIDERS: ATTEND Physician Assistant
DX: I50.33 Acute on chronic diastolic (congestive) heart failure (principal); I11.0 Hypertensive heart disease with heart failure

== ENCOUNTER → 2025-02-13 | Outpatient (REF) | payer BC ==
[2025-02-13 14:35] LABS: CALCIUM LEVEL 9.0 MG/DL (8.3-10.6); CARBON DIOXIDE LEVEL 37.0 MMOL/L (20-31); CHLORIDE LEVEL 99.0 MMOL/L (98-107); CREATININE FOR GFR 1.29 MG/DL (0.55-1.30); GLOMERULAR FILTRATION RATE 40.4 (>32); POTASSIUM SERUM 4.3 MMOL/L (3.5-5.1); SODIUM LEVEL 142.0 MMOL/L (136-145)
== END ==
LOC: M SFHCADAM 10:58
PROVIDERS: ATTEND Physician Assistant Medical
DX: E87.5 Hyperkalemia (principal)

== ENCOUNTER → 2025-03-09 | Outpatient (CLI) | payer BC ==
[2025-03-09 13:31] LABS: CALCIUM LEVEL 9.5 MG/DL (8.3-10.6); CARBON DIOXIDE LEVEL 37.0 MMOL/L (20-31); CHLORIDE LEVEL 96.0 MMOL/L (98-107); CREATININE FOR GFR 1.18 MG/DL (0.55-1.30); GLOMERULAR FILTRATION RATE 45.0 (>32); POTASSIUM SERUM 4.5 MMOL/L (3.5-5.1); SODIUM LEVEL 144.0 MMOL/L (136-145)
[2025-03-09 13:38] LABS: BASO # 0.1 10^3/uL (0.0-0.2); BASO % 0.7 % (0.0-1.0); EOS # 0.2 10^3/uL (0.0-0.5); EOS % 2.1 % (0.0-3.0); LYMPH # 1.9 10^3/uL (1.5-5.0); LYMPH % 23.6 % (24.0-44.0); MONO # 0.6 10^3/uL (0.0-0.8); MONO % 7.3 % (2.0-8.0); NEUTROPHILS # 5.4 10^3/uL (1.5-8.5); NEUTROPHILS % 66.1 % (36.0-66.0); PLATELET COUNT, AUTOMATED 172 10^3/uL (150-450)
== END ==
LOC: M LABDRWAD 10:38
PROVIDERS: ATTEND Physician Assistant
DX: I50.32 Chronic diastolic (congestive) heart failure (principal); I34.2 Nonrheumatic mitral (valve) stenosis

== ENCOUNTER → 2025-03-30 | Outpatient (REF) | payer BC ==
[2025-03-30 18:43] LABS: PLATELET COUNT, AUTOMATED 201 10^3/uL (150-450)
[2025-03-30 18:45] LABS: ALT/SGPT 14.0 U/L (7.0-40); AST/SGOT 15.0 U/L (<34); CALCIUM LEVEL 9.6 MG/DL (8.3-10.6); CARBON DIOXIDE LEVEL 35.0 MMOL/L (20-31); CHLORIDE LEVEL 97.0 MMOL/L (98-107); CREATININE FOR GFR 1.47 MG/DL (0.55-1.30); GLOMERULAR FILTRATION RATE 34.6 (>32); POTASSIUM SERUM 4.3 MMOL/L (3.5-5.1); SODIUM LEVEL 141.0 MMOL/L (136-145)
[2025-03-30 18:47] LABS: FREE T4 1.19 NG/DL (0.89-1.76)
== END ==
LOC: M SFHCADAM 11:38
PROVIDERS: ATTEND Family Medicine
DX: R60.0 Localized edema (principal); I50.30 Unspecified diastolic (congestive) heart failure; I27.29 Other secondary pulmonary hypertension; M10.9 Gout, unspecified

== ENCOUNTER → 2025-05-09 | Outpatient (REF) | payer BC ==
[2025-05-09 18:33] LABS: ALT/SGPT 19.0 U/L (7.0-40); AST/SGOT 21.0 U/L (<34); CALCIUM LEVEL 9.5 MG/DL (8.3-10.6); CARBON DIOXIDE LEVEL 38.0 MMOL/L (20-31); CHLORIDE LEVEL 98.0 MMOL/L (98-107); CHOLESTEROL LEVEL 172.0 MG/DL (<200); CHOLESTEROL RISK RATIO 3.31 (<5); CREATININE FOR GFR 1.28 MG/DL (0.55-1.30); GLOMERULAR FILTRATION RATE 40.8 (>32); LDL CHOLESTEROL 100.7 MG/DL (<100); NON-HDL-C 120.1 MG/DL; POTASSIUM SERUM 4.6 MMOL/L (3.5-5.1); SODIUM LEVEL 145.0 MMOL/L (136-145); TRIGLYCERIDES LEVEL 97.0 MG/DL (<150)
[2025-05-09 18:39] LABS: FREE T4 1.04 NG/DL (0.89-1.76)
[2025-05-09 18:40] LABS: PLATELET COUNT, AUTOMATED 202 10^3/uL (150-450)
== END ==
LOC: M SFHCADAM 14:22
PROVIDERS: ATTEND Family Medicine
DX: I27.29 Other secondary pulmonary hypertension (principal); D50.9 Iron deficiency anemia, unspecified; I50.30 Unspecified diastolic (congestive) heart failure; E04.2 Nontoxic multinodular goiter; E78.5 Hyperlipidemia, unspecified; I82.432 Acute embolism and thrombosis of left popliteal vein; M10.9 Gout, unspecified

== ENCOUNTER → 2025-06-07 | Outpatient (REF) | payer BC ==
[2025-06-07 17:09] LABS: PLATELET COUNT, AUTOMATED 185 10^3/uL (150-450)
[2025-06-07 17:17] LABS: CALCIUM LEVEL 9.4 MG/DL (8.3-10.6); CARBON DIOXIDE LEVEL 37.0 MMOL/L (20-31); CHLORIDE LEVEL 94.0 MMOL/L (98-107); CREATININE FOR GFR 1.41 MG/DL (0.55-1.30); GLOMERULAR FILTRATION RATE 36.3 (>32); POTASSIUM SERUM 4.6 MMOL/L (3.5-5.1); SODIUM LEVEL 138.0 MMOL/L (136-145)
[2025-06-07 17:20] LABS: FREE T4 1.15 NG/DL (0.89-1.76); VITAMIN B12 LEVEL 549.0 PG/ML (211-911)
== END ==
LOC: M SFHCADAM 11:13
PROVIDERS: ATTEND Family Medicine
DX: R41.3 Other amnesia (principal); I50.30 Unspecified diastolic (congestive) heart failure; E04.2 Nontoxic multinodular goiter; I27.29 Other secondary pulmonary hypertension; I82.432 Acute embolism and thrombosis of left popliteal vein